=== PATIENT | male | born 1980 | race African-American/Black ===

== ENCOUNTER 2018-06-07 03:03 | Inpatient (IN) | payer MEDICAID ==
[~2018-06-07] VITALS: Ht 160 cm; Wt 139.7 kg
[~2018-06-07 03:03] MED LIST: ASPI-1079 PO; ATOR20TA65 MT; ISOS10TA53 MT; LOSA50TA20 MT; POTA-79 MT; POTA10TA15 MT
[2018-06-07] MEDS ORDERED: ALBUTEROL (0.083%) 2.5MG/3ML NEB HHN STA (03:44)
[2018-06-07] MEDS ORDERED: IPRATROPIUM BROMIDE (0.02%) 0.5MG/2.5ML NEB HHN STA (03:44)
[2018-06-07] MEDS ORDERED: METHYLPREDNISOLONE SOD SUCC 125 MG/2 ML VIAL IV STA (03:44)
[2018-06-07] MEDS ORDERED: ENALAPRIL 2.5MG/2ML VIAL 2ML IV ONE (04:00)
[2018-06-07 04:11] LABS: BASOPHILS % 1.5 % (0.0-2.0); EOSINOPHILS % 2.1 % (0.0-5.0); HEMATOCRIT. 42.9 % (42.0-52.0); HEMOGLOBIN. 14.1 g/dL (14.0-18.0); LYMPHOCYTES % 24.7 % (20.0-50.0); MEAN CORPUSCULAR HEMOGLOBIN 30.6 pg (28.0-32.0); MEAN CORPUSCULAR VOLUME 92.8 fL (80.0-94.0); MEAN PLATELET VOLUME 9.6 fl (7.4-10.4); MONOCYTES % 11.4 % (2.0-8.0); NEUTROPHILS % 60.3 % (40.0-76.0); PLATELET 263 x1000/uL (130-400); RED BLOOD CELL COUNT 4.62 mill/uL (4.7-6.1); RED CELL DISTRIBUTION WIDTH 15.3 % (11.6-14.6)
[2018-06-07 04:48] LABS: CHLORIDE 113 mEq/L (98-107)
[2018-06-07] MEDS ORDERED: FUROSEMIDE 40MG/4ML VIAL IVP ONE (05:00)
[2018-06-07 08:45] VITALS: BP 157/92
[2018-06-07 08:57] VITALS: BP 157/92
[2018-06-07] MEDS ORDERED: LISI40TA4 MT (09:25)
[2018-06-07] MEDS ORDERED: CARV6.2548 MT (09:25)
[2018-06-07] MEDS ORDERED: FURO40TA5 MT (09:25)
[2018-06-07] MEDS ORDERED: ONDANSETRON HCL 4MG/2ML INJ IV PRN (10:30)
[2018-06-07] MEDS ORDERED: CLONIDINE 0.1MG TABLET PO PRN (10:30)
[2018-06-07] MEDS ORDERED: ACETAMINOPHEN 325MG TABLET PO PRN (10:30)
[2018-06-07] MEDS: CARVEDILOL 12.5MG TABLET PO SCH ×2 (10:43→21:33)
[2018-06-07] MEDS: AMLODIPINE 5MG TABLET PO SCH ×2 (10:44→21:33)
[2018-06-07] MEDS: ENOXAPARIN 40MG/0.4ML SYR SUBCUT SCH ×2 (10:45→21:41)
[2018-06-07] MEDS: FUROSEMIDE 100MG/10ML VIAL IVP SCH ×2 (11:04→17:49)
[2018-06-07 12:00] VITALS: BP 155/96
[2018-06-07] MEDS: BUDESONIDE 0.5MG/2ML NEB HHN SCH ×2 (12:01→21:38)
[2018-06-07] MEDS: IPRATROPIUM/ALBUTEROL 0.5-3(2.5)MG/3ML NEB HHN PRN ×3 (12:02→21:17)
[2018-06-07] MEDS: LISINOPRIL 40MG TABLET PO SCH (13:16)
[2018-06-07] MEDS: POTASSIUM CHLORIDE 20MEQ TABLET SR PO SCH (13:17)
[2018-06-07] MEDS: ASPIRIN 81MG TABLET PO SCH (13:17)
[2018-06-07 16:00] VITALS: BP 138/89
[2018-06-07 18:48] VITALS: BP 138/69
[2018-06-07] MEDS ORDERED: PNEUMOCOCCAL 23-VAL P-SAC VAC 0.5 ML IM ONE (20:45)
[2018-06-07] MEDS ORDERED: INFLUENZA VIRUS VACCINE(AFLURIA) 0.5ML SYR IM ONE (20:45)
[2018-06-07 20:53] VITALS: BP 121/79
[2018-06-07] MEDS: ATORVASTATIN CALCIUM 20MG TABLET PO SCH (21:33)
[2018-06-08] VITALS: BP 132/67
[2018-06-08 00:59] LABS: CLARITY URINE CLEAR (CLEAR); COLOR URINE YELLOW (YELLOW); KETONES URINE NEGATIVE (NEGATIVE); LEUKOCYTE ESTERASE URINE NEGATIVE (NEGATIVE); NITRITE URINE NEGATIVE (NEGATIVE); OCCULT BLOOD URINE NEGATIVE (NEGATIVE); PROTEIN URINE 1+ (NEGATIVE); SPECIFIC GRAVITY URINE 1.009 (1.005-1.030); UROBILINOGEN URINE 0.2 E.U./dL (0.2-1.0)
[2018-06-08 01:15] LABS: *AMPHETAMINES SCREEN URINE NEGATIVE (NEGATIVE); *BARBITURATES SCREEN URINE NEGATIVE (NEGATIVE)
[2018-06-08 01:16] LABS: *BENZODIAZEPINES SCREEN URINE NEGATIVE (NEGATIVE); *COCAINE SCREEN URINE NEGATIVE (NEGATIVE); CANNABINOID URINE SCREEN NEGATIVE (NEGATIVE); METHADONE URINE SCREEN NEGATIVE (NEGATIVE); OPIATES URINE SCREEN NEGATIVE (NEGATIVE); PHENCYCLIDINE URINE SCREEN NEGATIVE (NEGATIVE)
[2018-06-08 04:48] VITALS: BP 119/67
[2018-06-08 08:00] VITALS: BP 120/84
[2018-06-08] MEDS: IPRATROPIUM/ALBUTEROL 0.5-3(2.5)MG/3ML NEB HHN PRN ×2 (08:48→20:37)
[2018-06-08] MEDS: BUDESONIDE 0.5MG/2ML NEB HHN SCH ×2 (08:49→20:37)
[2018-06-08 10:01] LABS: HEMATOCRIT. 43.6 % (42.0-52.0); HEMOGLOBIN. 14.2 g/dL (14.0-18.0); MEAN CORPUSCULAR HEMOGLOBIN 30.5 pg (28.0-32.0); MEAN CORPUSCULAR VOLUME 93.9 fL (80.0-94.0); MEAN PLATELET VOLUME 9.4 fl (7.4-10.4); PLATELET 229 x1000/uL (130-400); RED BLOOD CELL COUNT 4.64 mill/uL (4.7-6.1)
[2018-06-08] MEDS: AMLODIPINE 5MG TABLET PO SCH ×2 (10:47→21:00)
[2018-06-08] MEDS: LISINOPRIL 40MG TABLET PO SCH (10:47)
[2018-06-08] MEDS: POTASSIUM CHLORIDE 20MEQ TABLET SR PO SCH (10:47)
[2018-06-08] MEDS: ENOXAPARIN 40MG/0.4ML SYR SUBCUT SCH ×2 (10:48→21:00)
[2018-06-08] MEDS: CARVEDILOL 12.5MG TABLET PO SCH ×2 (10:48→21:00)
[2018-06-08] MEDS: FUROSEMIDE 100MG/10ML VIAL IVP SCH ×2 (10:48→18:12)
[2018-06-08] MEDS: ASPIRIN 81MG TABLET PO SCH (10:48)
[2018-06-08 12:00] VITALS: BP 132/83
[2018-06-08 15:20] LABS: PLATELET ESTIMATE NORMAL
[2018-06-08 16:00] VITALS: BP 112/64
[2018-06-08 20:00] VITALS: BP 109/55
[2018-06-08] MEDS: NEOMY SULF/BACITRAC ZN/POLY OINT 28GM TOP SCH (21:00)
[2018-06-08] MEDS: ATORVASTATIN CALCIUM 20MG TABLET PO SCH (22:05)
[2018-06-09 02:01] VITALS: BP 98/52
[2018-06-09 06:00] VITALS: BP 104/59
[2018-06-09] MEDS: BUDESONIDE 0.5MG/2ML NEB HHN SCH ×2 (07:42→19:43)
[2018-06-09] MEDS: IPRATROPIUM/ALBUTEROL 0.5-3(2.5)MG/3ML NEB HHN PRN (07:42)
[2018-06-09 08:00] VITALS: BP 117/78
[2018-06-09 08:02] LABS: HEMATOCRIT. 46.5 % (42.0-52.0); HEMOGLOBIN. 15.3 g/dL (14.0-18.0); MEAN CORPUSCULAR HEMOGLOBIN 30.7 pg (28.0-32.0); MEAN CORPUSCULAR VOLUME 93.5 fL (80.0-94.0); MEAN PLATELET VOLUME 9.2 fl (7.4-10.4); PLATELET 234 x1000/uL (130-400); RED BLOOD CELL COUNT 4.98 mill/uL (4.7-6.1); RED CELL DISTRIBUTION WIDTH 14.9 % (11.6-14.6)
[2018-06-09 08:10] LABS: CHLORIDE 102 mEq/L (98-107)
[2018-06-09] MEDS: ASPIRIN 81MG TABLET PO SCH (10:07)
[2018-06-09] MEDS: POTASSIUM CHLORIDE 20MEQ TABLET SR PO SCH (10:07)
[2018-06-09] MEDS: CARVEDILOL 12.5MG TABLET PO SCH ×2 (10:08→21:00)
[2018-06-09] MEDS: LISINOPRIL 40MG TABLET PO SCH (10:08)
[2018-06-09] MEDS: AMLODIPINE 5MG TABLET PO SCH ×2 (10:08→21:00)
[2018-06-09] MEDS: ENOXAPARIN 40MG/0.4ML SYR SUBCUT SCH ×2 (10:09→21:04)
[2018-06-09] MEDS: NEOMY SULF/BACITRAC ZN/POLY OINT 28GM TOP SCH ×2 (10:09→21:04)
[2018-06-09] MEDS: FUROSEMIDE 100MG/10ML VIAL IVP SCH ×2 (10:09→18:00)
[2018-06-09 11:02] LABS: PLATELET ESTIMATE NORMAL
[2018-06-09 12:00] VITALS: BP 108/66
[2018-06-09 16:00] VITALS: BP 100/68
[2018-06-09 20:30] VITALS: BP 103/50
[2018-06-09] MEDS: ATORVASTATIN CALCIUM 20MG TABLET PO SCH (21:03)
[2018-06-10] VITALS: BP 97/49
[2018-06-10 04:00] VITALS: BP 107/57
[2018-06-10 07:00] LABS: HEMATOCRIT. 45.9 % (42.0-52.0); MEAN CORPUSCULAR HEMOGLOBIN 30.6 pg (28.0-32.0); MEAN CORPUSCULAR VOLUME 93.2 fL (80.0-94.0); MEAN PLATELET VOLUME 8.7 fl (7.4-10.4); PLATELET 229 x1000/uL (130-400); RED BLOOD CELL COUNT 4.92 mill/uL (4.7-6.1); RED CELL DISTRIBUTION WIDTH 15.3 % (11.6-14.6)
[2018-06-10 07:45] LABS: CHLORIDE 103 mEq/L (98-107)
[2018-06-10 08:00] VITALS: BP 96/52
[2018-06-10] MEDS: IPRATROPIUM/ALBUTEROL 0.5-3(2.5)MG/3ML NEB HHN PRN ×2 (08:22→21:12)
[2018-06-10] MEDS: BUDESONIDE 0.5MG/2ML NEB HHN SCH (08:23)
[2018-06-10] MEDS: CARVEDILOL 12.5MG TABLET PO SCH (09:00)
[2018-06-10] MEDS: NEOMY SULF/BACITRAC ZN/POLY OINT 28GM TOP SCH ×2 (09:00→21:03)
[2018-06-10] MEDS: AMLODIPINE 5MG TABLET PO SCH (09:00)
[2018-06-10] MEDS: LISINOPRIL 40MG TABLET PO SCH (09:00)
[2018-06-10 10:07] LABS: ATYPICAL LYMPHOCYTES 1
[2018-06-10 10:08] LABS: PLATELET ESTIMATE NORMAL
[2018-06-10] MEDS ORDERED: SODIUM CHLORIDE 0.45% 250 ML IV ONE (10:45)
[2018-06-10] MEDS: ASPIRIN 81MG TABLET PO SCH (11:10)
[2018-06-10] MEDS: POTASSIUM CHLORIDE 20MEQ TABLET SR PO SCH (11:10)
[2018-06-10] MEDS: FUROSEMIDE 40MG TABLET PO SCH ×2 (11:10→17:26)
[2018-06-10] MEDS: ENOXAPARIN 40MG/0.4ML SYR SUBCUT SCH ×2 (11:21→21:02)
[2018-06-10 16:00] VITALS: BP 136/67
[2018-06-10 20:00] VITALS: BP 111/56
[2018-06-10] MEDS: CARVEDILOL 6.25 MG TABLET PO SCH (21:01)
[2018-06-10] MEDS: ATORVASTATIN CALCIUM 20MG TABLET PO SCH (21:01)
[2018-06-11] VITALS: BP 98/43
[2018-06-11 04:00] VITALS: BP 114/66
[2018-06-11] MEDS: FUROSEMIDE 40MG TABLET PO SCH (05:54)
[2018-06-11 07:07] LABS: HEMATOCRIT. 45.6 % (42.0-52.0); HEMOGLOBIN. 14.9 g/dL (14.0-18.0); MEAN CORPUSCULAR HEMOGLOBIN 30.7 pg (28.0-32.0); MEAN CORPUSCULAR VOLUME 93.8 fL (80.0-94.0); PLATELET 228 x1000/uL (130-400); RED BLOOD CELL COUNT 4.86 mill/uL (4.7-6.1); RED CELL DISTRIBUTION WIDTH 14.7 % (11.6-14.6)
[2018-06-11 08:04] VITALS: BP 101/50
[2018-06-11] MEDS: AMLODIPINE 2.5MG TABLET PO SCH ×2 (09:00→15:25)
[2018-06-11] MEDS ORDERED: LISINOPRIL 10MG TABLET PO SCH (09:00)
[2018-06-11] MEDS: CARVEDILOL 6.25 MG TABLET PO SCH (09:00)
[2018-06-11] MEDS: POTASSIUM CHLORIDE 20MEQ TABLET SR PO SCH (09:13)
[2018-06-11] MEDS: ASPIRIN 81MG TABLET PO SCH (09:13)
[2018-06-11] MEDS: ENOXAPARIN 40MG/0.4ML SYR SUBCUT SCH (09:16)
[2018-06-11] MEDS: NEOMY SULF/BACITRAC ZN/POLY OINT 28GM TOP SCH (09:17)
[2018-06-11 11:43] VITALS: BP 158/91
[2018-06-11] MEDS ORDERED: ASPI-1160 PO (12:07)
[2018-06-11] MEDS ORDERED: LISI10TA5 PO (12:07)
[2018-06-11] MEDS ORDERED: AMLO2.5T45 PO (12:07)
[2018-06-11 15:18] VITALS: BP 158/91
[2018-06-11 17:09] LABS: PLATELET ESTIMATE NORMAL
== END 2018-06-11 17:19 | disposition home or self-care (01) | DRG 194 ==
LOC: ER 03:35 → 6WST 05:59 → EDBEDREQ 06:00 → EDBEDREQTM 06:00 → ENRESERV 08:01
PROVIDERS: ADMIT Internal Medicine; ATTEND Internal Medicine
DX: I13.0 Hypertensive heart and chronic kidney disease with heart failure and stage 1 through stage 4 chronic kidney disease, or unspecified chronic kidney disease (principal); N17.0 Acute kidney failure with tubular necrosis; E87.0 Hyperosmolality and hypernatremia; E66.01 Morbid (severe) obesity due to excess calories; E87.8 Other disorders of electrolyte and fluid balance, not elsewhere classified; R65.10 Systemic inflammatory response syndrome (SIRS) of non-infectious origin without acute organ dysfunction; I42.9 Cardiomyopathy, unspecified; I50.23 Acute on chronic systolic (congestive) heart failure; Z68.43 Body mass index [BMI] 50.0-59.9, adult; J44.9 Chronic obstructive pulmonary disease, unspecified; E78.5 Hyperlipidemia, unspecified; S31.31XA Laceration without foreign body of scrotum and testes, initial encounter; N18.9 Chronic kidney disease, unspecified; M25.569 Pain in unspecified knee; R74.8 Abnormal levels of other serum enzymes; Z79.82 Long term (current) use of aspirin; Z79.899 Other long term (current) drug therapy; X58.XXXA Exposure to other specified factors, initial encounter; Y93.89 Activity, other specified; Y92.89 Other specified places as the place of occurrence of the external cause; Y99.8 Other external cause status
CPT/HCPCS: 36415; 71045; 76870; 80048; 80305; 82962; 83880; 84134; 84484; 90686; 90732; 93005; 93970; 93976; 94640; 96374; 96375; 97162; 99285; C1893; J1650; J1940; J2930; J3490; J7050; J7611; J7620; J7626

== ENCOUNTER 2018-08-22 09:58 | Inpatient (IN) | payer MEDICAID ==
[~2018-08-22] VITALS: Ht 160 cm; Wt 145.1 kg
[~2018-08-22 09:58] MED LIST changes: +AMLO2.5T45 PO; -ASPI-1079 PO; +ASPI-1160 PO; +CARV6.2548 MT; +FURO40TA5 MT; -ISOS10TA53 MT; +LISI10TA5 PO; -LOSA50TA20 MT; -POTA-79 MT; -POTA10TA15 MT
[2018-08-22 11:00] LABS: HEMATOCRIT. 46.7 % (42.0-52.0); HEMOGLOBIN. 15.4 g/dL (14.0-18.0); MEAN CORPUSCULAR HEMOGLOBIN 31.1 pg (28.0-32.0); MEAN CORPUSCULAR VOLUME 94.3 fL (80.0-94.0); MEAN PLATELET VOLUME 8.6 fl (7.4-10.4); PLATELET 240 x1000/uL (130-400); RED BLOOD CELL COUNT 4.95 mill/uL (4.7-6.1)
[2018-08-22 11:03] LABS: CHLORIDE 106 mEq/L (98-107); INR 1.1; PROTHROMBIN TIME 10.7 sec (9.1-11.1)
[2018-08-22] MEDS ORDERED: FUROSEMIDE 40MG/4ML VIAL IVP ONE (11:30)
[2018-08-22] MEDS ORDERED: NITROGLYCERIN OINT 1GM/INCH UDPKT TD ONE (11:30)
[2018-08-22 11:49] LABS: PLATELET ESTIMATE NORMAL
[2018-08-22] MEDS ORDERED: IBUPROFEN 600MG TABLET PO ONE (13:45)
[2018-08-22] MEDS: IPRATROPIUM/ALBUTEROL 0.5-3(2.5)MG/3ML NEB HHN SCH ×2 (15:51→20:51)
[2018-08-22] MEDS ORDERED: CLONIDINE 0.1MG TABLET PO PRN ×2 (16:00→18:45)
[2018-08-22] MEDS ORDERED: IPRATROPIUM/ALBUTEROL 0.5-3(2.5)MG/3ML NEB HHN PRN (16:37)
[2018-08-22] MEDS ORDERED: CLONIDINE 0.2MG TABLET PO PRN (16:39)
[2018-08-22 18:20] VITALS: BP 169/112
[2018-08-22] MEDS ORDERED: MAGNESIUM/ALUMINUM HYDROXIDE/SIMETHICONE 30ML UDC PO PRN (18:45)
[2018-08-22] MEDS ORDERED: ACETAMINOPHEN 650MG/20.3ML UDC GT PRN (18:45)
[2018-08-22] MEDS ORDERED: ACETAMINOPHEN 650MG SUPP PR PRN (18:45)
[2018-08-22] MEDS ORDERED: IPRATROPIUM/ALBUTEROL 0.5-3(2.5)MG/3ML NEB INH PRN (18:45)
[2018-08-22] MEDS ORDERED: ONDANSETRON HCL 4MG/2ML INJ IV PRN (18:45)
[2018-08-22] MEDS ORDERED: ACETAMINOPHEN 325MG TABLET PO PRN (18:45)
[2018-08-22 19:04] LABS: BG BASE EXCESS 1.3 mmol/L (-2.0-2.0); BG BILEVEL POS AIRWAY PRESSURE 15/5; BG FRACTION INSPIRED OXYGEN 40; BG HCO3 ACT 26.3 mmol/L (22.0-26.0); BG OXYGEN SATURATION 98.7 % (92.0-98.5); BG PH 7.404 (7.350-7.450); BG SAMPLE SITE RIGHT RADIAL; BG TOTAL HEMOGLOBIN 13.5 g/dL (12.0-18.0); BG VENT MODE MASK - BIPAP; BG VENT RATE 14 set
[2018-08-22 19:05] LABS: BG CARBOXYHEMOGLOBIN 0.9 % (0.5-1.5); BG DEOXYHEMOGLOBIN 1.3 % (0.0-5.0); BG METHEMOGLOBIN 0.3 % (0.0-1.5); BG OXYHEMOGLOBIN 97.5 % (94.0-97.0)
[2018-08-22 20:00] VITALS: BP 159/86
[2018-08-22 20:08] VITALS: BP 159/86
[2018-08-22] MEDS: METHYLPREDNISOLONE SOD SUCC 125 MG/2 ML VIAL IV SCH (20:28)
[2018-08-22] MEDS: FUROSEMIDE 40MG/4ML VIAL IVP SCH (20:28)
[2018-08-22] MEDS: LOSARTAN POTASSIUM 25 MG TABLET PO SCH (20:31)
[2018-08-22] MEDS: AMLODIPINE 5MG TABLET PO SCH (20:31)
[2018-08-22] MEDS: BUDESONIDE 0.5MG/2ML NEB HHN SCH (20:51)
[2018-08-22 22:31] VITALS: BP 147/100
[2018-08-23] VITALS (11 sets, daily range): BP systolic 118–157; BP diastolic 51–97
[2018-08-23 00:28] LABS: CREATINE KINASE MB FRACTION 1.9 ng/mL (0.5-3.6)
[2018-08-23] MEDS: SODIUM CHLORIDE 0.9% INJ 3ML FLUSH IVF SCH ×4 (01:36→21:44)
[2018-08-23] MEDS: METHYLPREDNISOLONE SOD SUCC 125 MG/2 ML VIAL IV SCH ×4 (01:36→21:44)
[2018-08-23] MEDS: IPRATROPIUM/ALBUTEROL 0.5-3(2.5)MG/3ML NEB HHN SCH ×4 (02:06→20:37)
[2018-08-23 03:01] LABS: CLARITY URINE CLEAR (CLEAR); COLOR URINE YELLOW (YELLOW); KETONES URINE NEGATIVE (NEGATIVE); LEUKOCYTE ESTERASE URINE NEGATIVE (NEGATIVE); NITRITE URINE NEGATIVE (NEGATIVE); OCCULT BLOOD URINE NEGATIVE (NEGATIVE); PROTEIN URINE NEGATIVE (NEGATIVE); SPECIFIC GRAVITY URINE 1.008 (1.005-1.030); UROBILINOGEN URINE 0.2 E.U./dL (0.2-1.0)
[2018-08-23 03:40] LABS: *AMPHETAMINES SCREEN URINE NEGATIVE (NEGATIVE); *BARBITURATES SCREEN URINE NEGATIVE (NEGATIVE); *BENZODIAZEPINES SCREEN URINE NEGATIVE (NEGATIVE); *COCAINE SCREEN URINE NEGATIVE (NEGATIVE); METHADONE URINE SCREEN NEGATIVE (NEGATIVE); OPIATES URINE SCREEN NEGATIVE (NEGATIVE)
[2018-08-23 03:41] LABS: CANNABINOID URINE SCREEN NEGATIVE (NEGATIVE); PHENCYCLIDINE URINE SCREEN NEGATIVE (NEGATIVE)
[2018-08-23 06:32] LABS: HEMATOCRIT. 41.7 % (42.0-52.0); HEMOGLOBIN. 13.8 g/dL (14.0-18.0); MEAN CORPUSCULAR VOLUME 93.8 fL (80.0-94.0); MEAN PLATELET VOLUME 8.9 fl (7.4-10.4); PLATELET 228 x1000/uL (130-400); RED BLOOD CELL COUNT 4.44 mill/uL (4.7-6.1); RED CELL DISTRIBUTION WIDTH 15.3 % (11.6-14.6)
[2018-08-23 06:38] LABS: CHLORIDE 101 mEq/L (98-107)
[2018-08-23 06:50] LABS: LDL CHOLESTEROL 85 mg/dL (5-100)
[2018-08-23 06:52] LABS: HDL CHOLESTEROL 42 mg/dL (40-59)
[2018-08-23 06:59] LABS: CREATINE KINASE MB FRACTION 1.7 ng/mL (0.5-3.6)
[2018-08-23] MEDS ORDERED: FUROSEMIDE 40MG/4ML VIAL IVP SCH (09:00)
[2018-08-23] MEDS: LOSARTAN POTASSIUM 25 MG TABLET PO SCH ×2 (09:52→21:44)
[2018-08-23] MEDS: FUROSEMIDE 40MG/4ML VIAL IVP SCH ×2 (09:52→16:58)
[2018-08-23] MEDS: AMLODIPINE 5MG TABLET PO SCH ×2 (09:53→21:44)
[2018-08-23] MEDS: BUDESONIDE 0.5MG/2ML NEB HHN SCH ×2 (15:24→20:37)
[2018-08-24] MEDS: METHYLPREDNISOLONE SOD SUCC 125 MG/2 ML VIAL IV SCH ×2 (01:10→08:51)
[2018-08-24] MEDS: IPRATROPIUM/ALBUTEROL 0.5-3(2.5)MG/3ML NEB HHN SCH ×3 (01:15→13:26)
[2018-08-24] MEDS: SODIUM CHLORIDE 0.9% INJ 3ML FLUSH IVF SCH (05:51)
[2018-08-24 07:37] LABS: PLATELET ESTIMATE NORMAL
[2018-08-24] MEDS: LOSARTAN POTASSIUM 25 MG TABLET PO SCH (08:45)
[2018-08-24] MEDS: AMLODIPINE 5MG TABLET PO SCH (08:46)
[2018-08-24] MEDS: FUROSEMIDE 40MG/4ML VIAL IVP SCH (08:51)
[2018-08-24 09:42] LABS: HEMATOCRIT. 44.7 % (42.0-52.0); HEMOGLOBIN. 14.6 g/dL (14.0-18.0); MEAN CORPUSCULAR HEMOGLOBIN 30.8 pg (28.0-32.0); MEAN CORPUSCULAR VOLUME 94.2 fL (80.0-94.0); MEAN PLATELET VOLUME 8.8 fl (7.4-10.4); PLATELET 245 x1000/uL (130-400); RED BLOOD CELL COUNT 4.74 mill/uL (4.7-6.1)
[2018-08-24 10:21] LABS: CHLORIDE 104 mEq/L (98-107)
[2018-08-24 12:00] VITALS: BP 122/75
[2018-08-24 13:11] LABS: PLATELET ESTIMATE NORMAL
[2018-08-24] MEDS: BUDESONIDE 0.5MG/2ML NEB HHN SCH (13:26)
[2018-08-24 14:00] VITALS: BP 134/56
[2018-08-24] MEDS ORDERED: METHYLPREDNISOLONE SOD SUCC 40 MG/ML VIAL IV SCH (17:00)
== END 2018-08-24 14:30 | disposition left against medical advice (07) | DRG 133 ==
LOC: ER 09:58 → 6WST 11:37 → EDBEDREQ 11:46 → ENRESERV 16:41 → 5EST 22:26
PROVIDERS: ADMIT Family Medicine; ATTEND Family Medicine
PROC: 5A09357 Assistance with Respiratory Ventilation, Less than 24 Consecutive Hours, Continuous Positive Airway Pressure (ICD-10-PCS; principal; 2018-08-22)
PROC: 5A09357 Assistance with Respiratory Ventilation, Less than 24 Consecutive Hours, Continuous Positive Airway Pressure (ICD-10-PCS; 2018-08-23)
PROC: 5A09357 Assistance with Respiratory Ventilation, Less than 24 Consecutive Hours, Continuous Positive Airway Pressure (ICD-10-PCS; 2018-08-24)
DX: J96.00 Acute respiratory failure, unspecified whether with hypoxia or hypercapnia (principal); I50.23 Acute on chronic systolic (congestive) heart failure; I42.9 Cardiomyopathy, unspecified; Z99.81 Dependence on supplemental oxygen; Z68.43 Body mass index [BMI] 50.0-59.9, adult; J44.9 Chronic obstructive pulmonary disease, unspecified; I11.0 Hypertensive heart disease with heart failure; G47.33 Obstructive sleep apnea (adult) (pediatric); F12.90 Cannabis use, unspecified, uncomplicated; E66.9 Obesity, unspecified; R73.9 Hyperglycemia, unspecified; F17.200 Nicotine dependence, unspecified, uncomplicated; Z79.899 Other long term (current) drug therapy; Z79.82 Long term (current) use of aspirin; Z53.21 Procedure and treatment not carried out due to patient leaving prior to being seen by health care provider
CPT/HCPCS: 36415; 36600; 71045; 80061; 80305; 82375; 82550; 82553; 82805; 83735; 83880; 84484; 87070; 93005; 94640; 96374; 96375; 99285; J1940; J2930; J7620; J7626

== ENCOUNTER 2019-02-06 13:01 | Inpatient (IN) | payer MEDICAID ==
[~2019-02-06] VITALS: Ht 160 cm; Wt 120.2 kg
[2019-02-06] MEDS ORDERED: ASPIRIN 81MG TABLET PO ONE (13:30)
[2019-02-06] MEDS ORDERED: FUROSEMIDE 40MG/4ML VIAL IV ONE (13:30)
[2019-02-06] MEDS ORDERED: NITROGLYCERIN 0.4MG TABLET SL SL PRN (13:30)
[2019-02-06 14:44] LABS: HEMATOCRIT. 35.8 % (42.0-52.0); HEMOGLOBIN. 11.7 g/dL (14.0-18.0); MEAN CORPUSCULAR HEMOGLOBIN 31.2 pg (28.0-32.0); MEAN CORPUSCULAR VOLUME 95.1 fL (80.0-94.0); PLATELET 209 x1000/uL (130-400); RED BLOOD CELL COUNT 3.76 mill/uL (4.7-6.1); RED CELL DISTRIBUTION WIDTH 17.5 % (11.6-14.6)
[2019-02-06 14:46] LABS: CHLORIDE 110 mEq/L (98-107)
[2019-02-06] MEDS ORDERED: AMLODIPINE 5MG TABLET PO ONE (15:45)
[2019-02-06] MEDS ORDERED: ENOXAPARIN 120MG/0.8ML SYR SUBCUT ONE (15:45)
[2019-02-06 15:49] LABS: PLATELET ESTIMATE NORMAL
[2019-02-06] MEDS ORDERED: ONDANSETRON HCL 4MG/2ML INJ IV PRN (17:30)
[2019-02-06] MEDS ORDERED: DIPHENHYDRAMINE 50MG/ML VIAL IV PRN (17:30)
[2019-02-06] MEDS ORDERED: MAGNESIUM/ALUMINUM HYDROXIDE/SIMETHICONE 30ML UDC PO PRN (17:30)
[2019-02-06] MEDS ORDERED: IPRATROPIUM/ALBUTEROL 0.5-3(2.5)MG/3ML NEB HHN PRN (17:30)
[2019-02-06] MEDS ORDERED: ACETAMINOPHEN 325MG TABLET PO PRN (17:30)
[2019-02-06] MEDS ORDERED: ENOXAPARIN 40MG/0.4ML SYR SUBCUT NR (17:49)
[2019-02-06] MEDS: CLONIDINE 0.1MG TABLET PO PRN (18:59)
[2019-02-06 22:27] VITALS: BP 136/90
[2019-02-06] MEDS: ENOXAPARIN 30MG/0.3ML SYR SUBCUT SCH (23:44)
[2019-02-07 00:26] VITALS: BP 159/101
[2019-02-07] MEDS: CLONIDINE 0.1MG TABLET PO PRN (03:51)
[2019-02-07 04:00] VITALS: BP 149/98
[2019-02-07 05:57] LABS: BASOPHILS % 0.8 % (0.0-2.0); EOSINOPHILS % 3.2 % (0.0-5.0); HEMATOCRIT. 35.9 % (42.0-52.0); HEMOGLOBIN. 11.9 g/dL (14.0-18.0); LYMPHOCYTES % 27.3 % (20.0-50.0); MEAN CORPUSCULAR HEMOGLOBIN 31.3 pg (28.0-32.0); MEAN CORPUSCULAR VOLUME 94.5 fL (80.0-94.0); MEAN PLATELET VOLUME 7.8 fl (7.4-10.4); MONOCYTES % 14.8 % (2.0-8.0); NEUTROPHILS % 53.9 % (40.0-76.0); PLATELET 209 x1000/uL (130-400); RED CELL DISTRIBUTION WIDTH 17.4 % (11.6-14.6)
[2019-02-07 06:19] LABS: CHLORIDE 107 mEq/L (98-107)
[2019-02-07 06:31] LABS: HDL CHOLESTEROL 30 mg/dL (40-59); LDL CHOLESTEROL 80 mg/dL (5-100)
[2019-02-07 08:00] VITALS: BP 149/88
[2019-02-07] MEDS: ENOXAPARIN 30MG/0.3ML SYR SUBCUT SCH ×2 (09:18→21:14)
[2019-02-07] MEDS: FUROSEMIDE 40MG/4ML VIAL IV SCH ×2 (10:11→17:50)
[2019-02-07 12:00] VITALS: BP 151/60
[2019-02-07] MEDS: LISINOPRIL 10MG TABLET PO SCH ×2 (14:59→21:15)
[2019-02-07] MEDS: CARVEDILOL 6.25 MG TABLET PO SCH ×2 (14:59→21:23)
[2019-02-07 16:00] VITALS: BP 128/80
[2019-02-07 20:18] LABS: *AMPHETAMINES SCREEN URINE NEGATIVE (NEGATIVE); *BARBITURATES SCREEN URINE NEGATIVE (NEGATIVE); *BENZODIAZEPINES SCREEN URINE NEGATIVE (NEGATIVE); *COCAINE SCREEN URINE NEGATIVE (NEGATIVE); METHADONE URINE SCREEN NEGATIVE (NEGATIVE); OPIATES URINE SCREEN NEGATIVE (NEGATIVE)
[2019-02-07 20:19] LABS: CANNABINOID URINE SCREEN NEGATIVE (NEGATIVE); PHENCYCLIDINE URINE SCREEN NEGATIVE (NEGATIVE)
[2019-02-07] MEDS: IPRATROPIUM/ALBUTEROL 0.5-3(2.5)MG/3ML NEB HHN SCH ×2 (20:47→21:07)
[2019-02-07] MEDS: BUDESONIDE 0.5MG/2ML NEB HHN SCH ×2 (20:48→21:08)
[2019-02-07] MEDS: AMLODIPINE 5MG TABLET PO SCH (21:15)
[2019-02-08] VITALS: BP 152/86
[2019-02-08] MEDS: IPRATROPIUM/ALBUTEROL 0.5-3(2.5)MG/3ML NEB HHN SCH ×4 (03:36→20:03)
[2019-02-08 04:00] VITALS: BP 109/74
[2019-02-08 07:33] LABS: BASOPHILS % 0.9 % (0.0-2.0); EOSINOPHILS % 2.8 % (0.0-5.0); HEMATOCRIT. 38.9 % (42.0-52.0); HEMOGLOBIN. 12.7 g/dL (14.0-18.0); LYMPHOCYTES % 19.9 % (20.0-50.0); MEAN CORPUSCULAR HEMOGLOBIN 30.9 pg (28.0-32.0); MEAN CORPUSCULAR VOLUME 94.6 fL (80.0-94.0); MEAN PLATELET VOLUME 7.6 fl (7.4-10.4); MONOCYTES % 13.8 % (2.0-8.0); NEUTROPHILS % 62.6 % (40.0-76.0); PLATELET 231 x1000/uL (130-400); RED CELL DISTRIBUTION WIDTH 17.2 % (11.6-14.6)
[2019-02-08 07:35] LABS: CHLORIDE 103 mEq/L (98-107)
[2019-02-08 08:37] VITALS: BP 134/89
[2019-02-08] MEDS: BUDESONIDE 0.5MG/2ML NEB HHN SCH ×2 (08:53→20:03)
[2019-02-08] MEDS: CARVEDILOL 6.25 MG TABLET PO SCH ×2 (09:45→21:03)
[2019-02-08] MEDS: LISINOPRIL 10MG TABLET PO SCH ×2 (09:45→21:03)
[2019-02-08] MEDS: AMLODIPINE 5MG TABLET PO SCH ×2 (09:46→21:03)
[2019-02-08] MEDS: FUROSEMIDE 40MG/4ML VIAL IV SCH ×2 (09:46→17:48)
[2019-02-08 12:00] VITALS: BP 142/89
[2019-02-08 17:23] VITALS: BP 123/83
[2019-02-08 20:00] VITALS: BP 149/93
[2019-02-08] MEDS: PANTOPRAZOLE 40MG DR TABLET PO SCH (21:10)
[2019-02-09] VITALS: BP 143/89
[2019-02-09] MEDS: IPRATROPIUM/ALBUTEROL 0.5-3(2.5)MG/3ML NEB HHN SCH ×4 (02:06→21:18)
[2019-02-09 04:00] VITALS: BP 115/68
[2019-02-09 06:40] LABS: INR 1.1; PROTHROMBIN TIME 11.3 sec (9.6-11.0)
[2019-02-09 07:03] LABS: HEMATOCRIT. 41.6 % (42.0-52.0); HEMOGLOBIN. 13.6 g/dL (14.0-18.0); MEAN CORPUSCULAR HEMOGLOBIN 30.9 pg (28.0-32.0); MEAN CORPUSCULAR VOLUME 94.4 fL (80.0-94.0); MEAN PLATELET VOLUME 7.9 fl (7.4-10.4); PLATELET 237 x1000/uL (130-400); RED BLOOD CELL COUNT 4.41 mill/uL (4.7-6.1); RED CELL DISTRIBUTION WIDTH 17.2 % (11.6-14.6)
[2019-02-09 07:29] LABS: CHLORIDE 105 mEq/L (98-107)
[2019-02-09 08:00] VITALS: BP 117/73
[2019-02-09] MEDS: BUDESONIDE 0.5MG/2ML NEB HHN SCH ×2 (08:25→21:18)
[2019-02-09] MEDS: LISINOPRIL 10MG TABLET PO SCH ×2 (09:12→21:00)
[2019-02-09] MEDS: FUROSEMIDE 40MG/4ML VIAL IV SCH ×2 (09:12→11:13)
[2019-02-09] MEDS: PANTOPRAZOLE 40MG DR TABLET PO SCH ×2 (09:12→17:08)
[2019-02-09] MEDS: CARVEDILOL 6.25 MG TABLET PO SCH ×2 (09:12→21:00)
[2019-02-09] MEDS: AMLODIPINE 5MG TABLET PO SCH ×2 (09:12→21:30)
[2019-02-09 13:35] LABS: PLATELET ESTIMATE NORMAL
[2019-02-09 16:00] VITALS: BP 143/79
[2019-02-09] MEDS: SPIRONOLACTONE 25MG TABLET PO SCH (17:09)
[2019-02-09] MEDS: FUROSEMIDE 40MG TABLET PO SCH (17:09)
[2019-02-09] MEDS: METOLAZONE 2.5MG TABLET PO SCH (17:09)
[2019-02-09 20:00] VITALS: BP 108/77
[2019-02-10] VITALS: BP 101/72
[2019-02-10] MEDS: IPRATROPIUM/ALBUTEROL 0.5-3(2.5)MG/3ML NEB HHN SCH ×3 (01:26→12:40)
[2019-02-10 08:00] VITALS: BP 124/82
[2019-02-10] MEDS: BUDESONIDE 0.5MG/2ML NEB HHN SCH (08:22)
[2019-02-10] MEDS: PANTOPRAZOLE 40MG DR TABLET PO SCH (08:52)
[2019-02-10] MEDS: METOLAZONE 2.5MG TABLET PO SCH (08:53)
[2019-02-10] MEDS: AMLODIPINE 5MG TABLET PO SCH (08:53)
[2019-02-10] MEDS: LISINOPRIL 10MG TABLET PO SCH (08:54)
[2019-02-10] MEDS: CARVEDILOL 6.25 MG TABLET PO SCH (08:54)
[2019-02-10] MEDS: FUROSEMIDE 40MG TABLET PO SCH (08:54)
[2019-02-10] MEDS: SPIRONOLACTONE 25MG TABLET PO SCH (08:55)
[2019-02-10 10:37] LABS: BASOPHILS % 1.2 % (0.0-2.0); EOSINOPHILS % 3.3 % (0.0-5.0); HEMATOCRIT. 46.5 % (42.0-52.0); HEMOGLOBIN. 15.1 g/dL (14.0-18.0); LYMPHOCYTES % 23.4 % (20.0-50.0); MEAN CORPUSCULAR HEMOGLOBIN 30.9 pg (28.0-32.0); MEAN CORPUSCULAR VOLUME 95.3 fL (80.0-94.0); MEAN PLATELET VOLUME 8.1 fl (7.4-10.4); NEUTROPHILS % 58.1 % (40.0-76.0); PLATELET 241 x1000/uL (130-400); RED BLOOD CELL COUNT 4.88 mill/uL (4.7-6.1); RED CELL DISTRIBUTION WIDTH 17.5 % (11.6-14.6)
[2019-02-10 10:45] LABS: CHLORIDE 103 mEq/L (98-107)
[2019-02-10 12:00] VITALS: BP 113/80
[2019-02-10 14:33] VITALS: BP 113/80
[2019-02-10] MEDS ORDERED: METO5TAB69 MT (14:45)
[2019-02-10] MEDS ORDERED: PANT40TA4 MT (14:45)
[2019-02-10] MEDS ORDERED: LISI10TA5 MT (14:47)
[2019-02-10] MEDS ORDERED: AMLO2.5T45 MT (14:48)
[2019-02-10] MEDS ORDERED: SPIR25TA6 MT (14:48)
[2019-02-10 16:00] VITALS: BP 135/89
== END 2019-02-10 16:15 | disposition home or self-care (01) | DRG 133 ==
LOC: ER 13:16 → 7WST 17:10 → ENRESERV 19:40
PROVIDERS: ADMIT Internal Medicine; ATTEND Internal Medicine
DX: J96.00 Acute respiratory failure, unspecified whether with hypoxia or hypercapnia (principal); I50.23 Acute on chronic systolic (congestive) heart failure; I42.9 Cardiomyopathy, unspecified; E66.01 Morbid (severe) obesity due to excess calories; J44.1 Chronic obstructive pulmonary disease with (acute) exacerbation; K92.2 Gastrointestinal hemorrhage, unspecified; Z99.81 Dependence on supplemental oxygen; I13.0 Hypertensive heart and chronic kidney disease with heart failure and stage 1 through stage 4 chronic kidney disease, or unspecified chronic kidney disease; Z68.42 Body mass index [BMI] 45.0-49.9, adult; D72.821 Monocytosis (symptomatic); R19.7 Diarrhea, unspecified; D64.9 Anemia, unspecified; N18.9 Chronic kidney disease, unspecified; G47.33 Obstructive sleep apnea (adult) (pediatric); F12.90 Cannabis use, unspecified, uncomplicated; Z82.49 Family history of ischemic heart disease and other diseases of the circulatory system; Z79.82 Long term (current) use of aspirin
CPT/HCPCS: 36415; 71045; 76604; 80048; 80061; 80305; 82270; 83735; 83880; 84484; 89055; 93005; 93306; 93970; 94640; 96374; 99291; C1893; J1650; J1940; J7620; J7626

== ENCOUNTER 2019-08-05 15:12 | Inpatient (IN) | payer MEDICAID ==
[~2019-08-05] VITALS: Ht 162.6 cm; Wt 145.1 kg
[2019-08-05] MEDS: ENOXAPARIN 30MG/0.3ML SYR SUBCUT SCH (06:00)
[~2019-08-05 15:12] MED LIST changes: +AMLO2.5T45 MT; -AMLO2.5T45 PO; +LISI10TA5 MT; -LISI10TA5 PO; +METO5TAB7 MT; +PANT40TA4 MT; +SPIR25TA6 MT
[2019-08-05 16:47] LABS: HEMATOCRIT. 43.8 % (42.0-52.0); HEMOGLOBIN. 14.7 g/dL (14.0-18.0); MEAN CORPUSCULAR HEMOGLOBIN 31.5 pg (28.0-32.0); MEAN PLATELET VOLUME 8.6 fl (7.4-10.4); PLATELET 216 x1000/uL (130-400); RED BLOOD CELL COUNT 4.66 mill/uL (4.7-6.1); RED CELL DISTRIBUTION WIDTH 14.5 % (11.6-14.6)
[2019-08-05 16:49] LABS: CHLORIDE 107 mEq/L (98-107)
[2019-08-05 17:01] LABS: PROTHROMBIN TIME 10.7 sec (9.6-11.0)
[2019-08-05] MEDS ORDERED: FUROSEMIDE 40MG/4ML VIAL IVP SCH (17:30)
[2019-08-05] MEDS ORDERED: ASPIRIN 325MG EC TABLET PO SCH (17:30)
[2019-08-05 18:38] LABS: PLATELET ESTIMATE NORMAL
[2019-08-05] MEDS ORDERED: ALBUTEROL (0.083%) 2.5MG/3ML NEB HHN STA (18:50)
[2019-08-05] MEDS ORDERED: DIPHENHYDRAMINE 50MG/ML VIAL IV PRN (19:00)
[2019-08-05] MEDS ORDERED: ONDANSETRON HCL 4MG/2ML INJ IV PRN (19:00)
[2019-08-05 19:41] LABS: PHOSPHORUS 2.6 mg/dL (2.5-4.9)
[2019-08-06] MEDS: IPRATROPIUM/ALBUTEROL 0.5-3(2.5)MG/3ML NEB HHN PRN (01:54)
[2019-08-06] MEDS: CLONIDINE 0.1MG TABLET PO PRN (02:13)
[2019-08-06 05:30] LABS: HEMOGLOBIN. 13.5 g/dL (14.0-18.0); MEAN CORPUSCULAR HEMOGLOBIN 31.9 pg (28.0-32.0); MEAN CORPUSCULAR VOLUME 94.3 fL (80.0-94.0); MEAN PLATELET VOLUME 8.6 fl (7.4-10.4); PLATELET 193 x1000/uL (130-400); RED BLOOD CELL COUNT 4.24 mill/uL (4.7-6.1); RED CELL DISTRIBUTION WIDTH 14.4 % (11.6-14.6)
[2019-08-06 05:36] LABS: CHLORIDE 107 mEq/L (98-107)
[2019-08-06 05:43] LABS: LDL CHOLESTEROL 99 mg/dL (5-100)
[2019-08-06 05:45] LABS: HDL CHOLESTEROL 36 mg/dL (40-59)
[2019-08-06 06:13] LABS: NUCLEATED RED BLOOD CELLS 1 /100 WBC; PLATELET ESTIMATE NORMAL
[2019-08-06 09:42] VITALS: BP_SYST 134; BP_DIAS 76; BP_DIAS 96
[2019-08-06] MEDS: ENOXAPARIN 30MG/0.3ML SYR SUBCUT SCH ×2 (09:53→21:57)
[2019-08-06] MEDS ORDERED: INFLUENZA VIRUS VACCINE(AFLURIA) 0.5ML SYR IM ONE (11:45)
[2019-08-06] MEDS ORDERED: PNEUMOCOCCAL 23-VAL P-SAC VAC 0.5 ML IM ONE (11:45)
[2019-08-06 12:00] VITALS: BP 131/85
[2019-08-06 16:00] VITALS: BP 131/85
[2019-08-06 17:16] LABS: TOTAL IRON BINDING CAPACITY 338 ug/dL (250-450)
[2019-08-06] MEDS: ASPIRIN 81MG TABLET PO SCH (17:34)
[2019-08-06] MEDS: FUROSEMIDE 40MG/4ML VIAL IV SCH (17:35)
[2019-08-06 19:03] LABS: *AMPHETAMINES SCREEN URINE NEGATIVE (NEGATIVE); *BARBITURATES SCREEN URINE NEGATIVE (NEGATIVE)
[2019-08-06 19:04] LABS: *BENZODIAZEPINES SCREEN URINE NEGATIVE (NEGATIVE); *COCAINE SCREEN URINE NEGATIVE (NEGATIVE); CANNABINOID URINE SCREEN NEGATIVE (NEGATIVE); METHADONE URINE SCREEN NEGATIVE (NEGATIVE); OPIATES URINE SCREEN NEGATIVE (NEGATIVE); PHENCYCLIDINE URINE SCREEN NEGATIVE (NEGATIVE)
[2019-08-06 20:00] VITALS: BP 135/96
[2019-08-06] MEDS: CARVEDILOL 3.125 MG TABLET PO SCH (21:56)
[2019-08-06] MEDS: ATORVASTATIN CALCIUM 20MG TABLET PO SCH (21:56)
[2019-08-07] VITALS (7 sets, daily range): BP systolic 130–138; BP diastolic 35–97
[2019-08-07] MEDS: HYDROCODONE/ACETAMINOPHEN 5/325MG TABLET PO PRN ×3 (05:49→23:27)
[2019-08-07] MEDS: PANTOPRAZOLE 40MG DR TABLET PO SCH (05:49)
[2019-08-07 06:22] LABS: HEMATOCRIT. 43.5 % (42.0-52.0); HEMOGLOBIN. 14.8 g/dL (14.0-18.0); MEAN CORPUSCULAR HEMOGLOBIN 32.1 pg (28.0-32.0); MEAN CORPUSCULAR VOLUME 94.4 fL (80.0-94.0); MEAN PLATELET VOLUME 9.1 fl (7.4-10.4); PLATELET 218 x1000/uL (130-400); RED BLOOD CELL COUNT 4.61 mill/uL (4.7-6.1); RED CELL DISTRIBUTION WIDTH 14.4 % (11.6-14.6)
[2019-08-07 08:02] LABS: CHLORIDE 105 mEq/L (98-107)
[2019-08-07] MEDS: FUROSEMIDE 40MG/4ML VIAL IV SCH ×2 (09:00→17:00)
[2019-08-07] MEDS: ENOXAPARIN 30MG/0.3ML SYR SUBCUT SCH ×2 (09:13→21:06)
[2019-08-07] MEDS: ASPIRIN 81MG TABLET PO SCH (09:14)
[2019-08-07] MEDS: CARVEDILOL 3.125 MG TABLET PO SCH ×2 (09:37→21:06)
[2019-08-07 13:56] LABS: PLATELET ESTIMATE NORMAL
[2019-08-07] MEDS: SPIRONOLACTONE 25MG TABLET PO SCH (17:54)
[2019-08-07] MEDS: LOSARTAN POTASSIUM 25 MG TABLET PO SCH (21:06)
[2019-08-07] MEDS: ATORVASTATIN CALCIUM 20MG TABLET PO SCH (21:07)
[2019-08-08 04:00] VITALS: BP 140/88
[2019-08-08] MEDS: HYDROCODONE/ACETAMINOPHEN 5/325MG TABLET PO PRN ×3 (05:01→20:30)
[2019-08-08 06:05] LABS: HEMATOCRIT. 48.7 % (42.0-52.0); HEMOGLOBIN. 16.1 g/dL (14.0-18.0); MEAN CORPUSCULAR HEMOGLOBIN 31.4 pg (28.0-32.0); MEAN CORPUSCULAR VOLUME 94.8 fL (80.0-94.0); PLATELET 227 x1000/uL (130-400); RED BLOOD CELL COUNT 5.13 mill/uL (4.7-6.1); RED CELL DISTRIBUTION WIDTH 14.9 % (11.6-14.6)
[2019-08-08 07:25] LABS: CHLORIDE 104 mEq/L (98-107)
[2019-08-08 08:00] VITALS: BP 170/91
[2019-08-08] MEDS: LOSARTAN POTASSIUM 25 MG TABLET PO SCH ×2 (08:41→20:29)
[2019-08-08] MEDS: ASPIRIN 81MG TABLET PO SCH (08:41)
[2019-08-08] MEDS: CLONIDINE 0.1MG TABLET PO PRN (08:41)
[2019-08-08] MEDS: CARVEDILOL 3.125 MG TABLET PO SCH ×2 (08:42→20:30)
[2019-08-08] MEDS: PANTOPRAZOLE 40MG DR TABLET PO SCH (08:42)
[2019-08-08] MEDS: SPIRONOLACTONE 25MG TABLET PO SCH (08:42)
[2019-08-08] MEDS: ENOXAPARIN 30MG/0.3ML SYR SUBCUT SCH ×2 (08:44→20:29)
[2019-08-08] MEDS: FUROSEMIDE 40MG/4ML VIAL IV SCH ×2 (10:53→18:43)
[2019-08-08 12:00] VITALS: BP 123/68
[2019-08-08 16:00] VITALS: BP 103/69
[2019-08-08 19:28] LABS: AMYLASE 135 IU/L (25-115)
[2019-08-08 20:00] VITALS: BP 130/85
[2019-08-08] MEDS: ATORVASTATIN CALCIUM 20MG TABLET PO SCH (20:29)
[2019-08-08 23:52] VITALS: BP 110/80
[2019-08-09 04:00] VITALS: BP 108/75
[2019-08-09] MEDS: PANTOPRAZOLE 40MG DR TABLET PO SCH (07:20)
[2019-08-09 07:59] LABS: PLATELET ESTIMATE NORMAL
[2019-08-09 08:00] VITALS: BP 118/83
[2019-08-09] MEDS ORDERED: REGADENOSON 0.4 MG/5 ML IV SCH (09:00)
[2019-08-09] MEDS: LOSARTAN POTASSIUM 25 MG TABLET PO SCH ×2 (09:52→21:08)
[2019-08-09] MEDS: ENOXAPARIN 30MG/0.3ML SYR SUBCUT SCH (09:52)
[2019-08-09] MEDS: CARVEDILOL 3.125 MG TABLET PO SCH ×2 (09:54→21:09)
[2019-08-09] MEDS: ASPIRIN 81MG TABLET PO SCH (09:54)
[2019-08-09] MEDS: SPIRONOLACTONE 25MG TABLET PO SCH (09:54)
[2019-08-09 10:11] LABS: HEMATOCRIT 49.8 % (42.0-52.0); HEMOGLOBIN 16.5 g/dL (14.0-18.0); MEAN CORPUSCULAR HEMOGLOBIN 31.4 pg (28.0-32.0); MEAN CORPUSCULAR VOLUME 94.5 fL (80.0-94.0); PLATELET 225 x1000/uL (130-400); RED BLOOD CELL COUNT 5.27 mill/uL (4.7-6.1); RED CELL DISTRIBUTION WIDTH 14.9 % (11.6-14.6)
[2019-08-09 10:41] LABS: CHLORIDE 106 mEq/L (98-107)
[2019-08-09] MEDS ORDERED: ATOR20TA PO (11:57)
[2019-08-09] MEDS ORDERED: LOSA25TA3 PO (11:57)
[2019-08-09] MEDS ORDERED: COR3 PO (11:57)
[2019-08-09 12:00] VITALS: BP 114/81
[2019-08-09] MEDS ORDERED: REGADENOSON 0.4 MG/5 ML IV ONE (13:42)
[2019-08-09 16:00] VITALS: BP 103/71
[2019-08-09] MEDS: FUROSEMIDE 40MG/4ML VIAL IV SCH (17:00)
[2019-08-09 20:00] VITALS: BP 114/73
[2019-08-09] MEDS ORDERED: FAMOTIDINE 20MG TABLET PO SCH (21:00)
[2019-08-09] MEDS: ATORVASTATIN CALCIUM 20MG TABLET PO SCH (21:09)
[2019-08-09] MEDS: FUROSEMIDE 40MG TABLET PO SCH (21:09)
[2019-08-09] MEDS: ENOXAPARIN 40MG/0.4ML SYR SUBCUT SCH (21:09)
[2019-08-10] VITALS: BP 126/86
[2019-08-10 04:00] VITALS: BP 126/70
[2019-08-10] MEDS: PANTOPRAZOLE 40MG DR TABLET PO SCH (06:22)
[2019-08-10 08:00] VITALS: BP 133/46
[2019-08-10] MEDS: LOSARTAN POTASSIUM 25 MG TABLET PO SCH ×2 (09:27→21:49)
[2019-08-10] MEDS: ASPIRIN 81MG TABLET PO SCH (09:28)
[2019-08-10] MEDS: ENOXAPARIN 40MG/0.4ML SYR SUBCUT SCH ×2 (09:28→21:48)
[2019-08-10] MEDS: SPIRONOLACTONE 25MG TABLET PO SCH (09:28)
[2019-08-10] MEDS: CARVEDILOL 3.125 MG TABLET PO SCH ×2 (09:28→21:48)
[2019-08-10] MEDS: FUROSEMIDE 40MG TABLET PO SCH ×2 (09:31→21:47)
[2019-08-10 12:00] VITALS: BP 120/60
[2019-08-10 12:40] LABS: CHLORIDE 108 mEq/L (98-107)
[2019-08-10] MEDS: IPRATROPIUM/ALBUTEROL 0.5-3(2.5)MG/3ML NEB HHN PRN (14:08)
[2019-08-10 16:00] VITALS: BP 120/74
[2019-08-10 20:00] VITALS: BP 111/62
[2019-08-10] MEDS: ATORVASTATIN CALCIUM 20MG TABLET PO SCH (21:47)
[2019-08-11] VITALS: BP 116/66
[2019-08-11 04:00] VITALS: BP 117/68
[2019-08-11] MEDS: PANTOPRAZOLE 40MG DR TABLET PO SCH (06:32)
[2019-08-11] MEDS: ASPIRIN 81MG TABLET PO SCH (09:20)
[2019-08-11] MEDS: SPIRONOLACTONE 25MG TABLET PO SCH (09:20)
[2019-08-11] MEDS: LOSARTAN POTASSIUM 25 MG TABLET PO SCH ×2 (09:20→21:10)
[2019-08-11] MEDS: FUROSEMIDE 40MG TABLET PO SCH ×2 (09:21→21:10)
[2019-08-11] MEDS: CARVEDILOL 3.125 MG TABLET PO SCH ×2 (09:21→21:10)
[2019-08-11] MEDS: ENOXAPARIN 40MG/0.4ML SYR SUBCUT SCH ×2 (09:22→21:11)
[2019-08-11 12:00] VITALS: BP 125/83
[2019-08-11 16:00] VITALS: BP 126/72
[2019-08-11 17:17] LABS: CHLORIDE 106 mEq/L (98-107)
[2019-08-11 20:00] VITALS: BP 108/75
[2019-08-11] MEDS: ATORVASTATIN CALCIUM 20MG TABLET PO SCH (21:10)
[2019-08-12] VITALS: BP 112/72
[2019-08-12 04:00] VITALS: BP 115/69
[2019-08-12 06:00] LABS: HEMATOCRIT. 43.1 % (42.0-52.0); HEMOGLOBIN. 14.6 g/dL (14.0-18.0); MEAN CORPUSCULAR HEMOGLOBIN 31.9 pg (28.0-32.0); MEAN CORPUSCULAR VOLUME 94.2 fL (80.0-94.0); MEAN PLATELET VOLUME 8.7 fl (7.4-10.4); PLATELET 233 x1000/uL (130-400); RED BLOOD CELL COUNT 4.58 mill/uL (4.7-6.1); RED CELL DISTRIBUTION WIDTH 14.8 % (11.6-14.6)
[2019-08-12 06:14] LABS: CHLORIDE 107 mEq/L (98-107)
[2019-08-12] MEDS: PANTOPRAZOLE 40MG DR TABLET PO SCH (06:28)
[2019-08-12 08:00] VITALS: BP 110/74
[2019-08-12 09:56] LABS: PLATELET ESTIMATE NORMAL
[2019-08-12] MEDS: SPIRONOLACTONE 25MG TABLET PO SCH (10:58)
[2019-08-12] MEDS: CARVEDILOL 3.125 MG TABLET PO SCH (10:58)
[2019-08-12] MEDS: ASPIRIN 81MG TABLET PO SCH (10:58)
[2019-08-12] MEDS: LOSARTAN POTASSIUM 25 MG TABLET PO SCH (10:58)
[2019-08-12] MEDS: ENOXAPARIN 40MG/0.4ML SYR SUBCUT SCH (10:59)
[2019-08-12] MEDS: FUROSEMIDE 40MG TABLET PO SCH (10:59)
[2019-08-12 12:00] VITALS: BP 100/52
[2019-08-12 16:00] VITALS: BP 131/82
[2019-08-12 18:50] VITALS: BP 135/74
== END 2019-08-12 20:50 | disposition home or self-care (01) | DRG 140 ==
LOC: ER 15:12 → 6WST 18:28 → EDBEDREQ 18:30 → ENRESERV 08-06 08:51
PROVIDERS: ADMIT Internal Medicine; ATTEND Internal Medicine
DX: J44.1 Chronic obstructive pulmonary disease with (acute) exacerbation (principal); J96.00 Acute respiratory failure, unspecified whether with hypoxia or hypercapnia; I50.23 Acute on chronic systolic (congestive) heart failure; I42.9 Cardiomyopathy, unspecified; E66.01 Morbid (severe) obesity due to excess calories; K76.0 Fatty (change of) liver, not elsewhere classified; I13.0 Hypertensive heart and chronic kidney disease with heart failure and stage 1 through stage 4 chronic kidney disease, or unspecified chronic kidney disease; I35.1 Nonrheumatic aortic (valve) insufficiency; D50.9 Iron deficiency anemia, unspecified; G47.33 Obstructive sleep apnea (adult) (pediatric); D63.1 Anemia in chronic kidney disease; D72.821 Monocytosis (symptomatic)
CPT/HCPCS: 36415; 71045; 76700; 78452; 78580; 80048; 80053; 80061; 80305; 82150; 82728; 83540; 83550; 83735; 83880; 84100; 84443; 84484; 85025; 85027; 87070; 87077; 90686; 90732; 93005; 93017; 93306; 93970; 94640; 99285; A9500; J1650; J1940; J2785

== ENCOUNTER 2019-10-11 19:41 | Inpatient (IN) | payer MEDICAID ==
[~2019-10-11] VITALS: Ht 162.6 cm; Wt 142.0 kg
[~2019-10-11 19:41] MED LIST changes: -AMLO2.5T45 MT; +ATOR20TA PO; -ATOR20TA65 MT; -CARV6.2548 MT; +COR3 PO; -LISI10TA5 MT; +LOSA25TA3 PO
[2019-10-11 22:48] LABS: BASOPHILS % 0.7 % (0.0-2.0); EOSINOPHILS % 1.9 % (0.0-5.0); HEMATOCRIT. 47.4 % (42.0-52.0); HEMOGLOBIN. 15.8 g/dL (14.0-18.0); LYMPHOCYTES % 23.2 % (20.0-50.0); MEAN CORPUSCULAR HEMOGLOBIN 31.7 pg (28.0-32.0); MEAN CORPUSCULAR VOLUME 95.3 fL (80.0-94.0); MEAN PLATELET VOLUME 8.7 fl (7.4-10.4); MONOCYTES % 10.9 % (2.0-8.0); NEUTROPHILS % 63.3 % (40.0-76.0); PLATELET 238 x1000/uL (130-400); RED BLOOD CELL COUNT 4.98 mill/uL (4.7-6.1); RED CELL DISTRIBUTION WIDTH 15.7 % (11.6-14.6)
[2019-10-11 22:53] LABS: CHLORIDE 111 mEq/L (98-107)
[2019-10-12 09:30] VITALS: BP 162/106
[2019-10-12] MEDS ORDERED: CLONIDINE 0.1MG TABLET PO PRN (09:30)
[2019-10-12] MEDS ORDERED: ONDANSETRON HCL 4MG/2ML INJ IV PRN (09:30)
[2019-10-12] MEDS ORDERED: ACETAMINOPHEN 325MG TABLET PO PRN (09:30)
[2019-10-12 09:36] VITALS: BP 162/106
[2019-10-12] MEDS ORDERED: CLONIDINE 0.1MG TABLET PO NR (10:00)
[2019-10-12] MEDS: FUROSEMIDE 40MG/4ML VIAL IVP SCH ×2 (10:12→17:54)
[2019-10-12] MEDS: ENOXAPARIN 40MG/0.4ML SYR SUBCUT SCH ×2 (10:13→22:58)
[2019-10-12 12:00] VITALS: BP 153/93
[2019-10-12] MEDS: ALBUTEROL 6.7GM HFA INHALER ORI SCH ×2 (14:00→17:45)
[2019-10-12 16:00] VITALS: BP 132/92
[2019-10-12] MEDS ORDERED: FLUTICASONE FUROATE 100 1 INH/CAP ORI SCH (17:00)
[2019-10-12 17:09] LABS: *BENZODIAZEPINES SCREEN URINE NEGATIVE (NEGATIVE)
[2019-10-12 17:10] LABS: *COCAINE SCREEN URINE NEGATIVE (NEGATIVE)
[2019-10-12 17:11] LABS: *AMPHETAMINES SCREEN URINE NEGATIVE (NEGATIVE); *BARBITURATES SCREEN URINE NEGATIVE (NEGATIVE); CANNABINOID URINE SCREEN NEGATIVE (NEGATIVE); METHADONE URINE SCREEN NEGATIVE (NEGATIVE); OPIATES URINE SCREEN NEGATIVE (NEGATIVE); PHENCYCLIDINE URINE SCREEN NEGATIVE (NEGATIVE)
[2019-10-12 20:00] VITALS: BP 177/98
[2019-10-12] MEDS ORDERED: HYDRALAZINE HCL 50MG TABLET PO SCH (21:00)
[2019-10-12] MEDS: CARVEDILOL 6.25 MG TABLET PO SCH (22:57)
[2019-10-12] MEDS: AMLODIPINE 5MG TABLET PO SCH (22:57)
[2019-10-13] VITALS: BP 143/92
[2019-10-13] MEDS: ALBUTEROL 6.7GM HFA INHALER ORI SCH ×2 (01:39→06:00)
[2019-10-13 04:00] VITALS: BP 156/108
[2019-10-13] MEDS: FUROSEMIDE 40MG/4ML VIAL IVP SCH (06:23)
[2019-10-13] MEDS: AMLODIPINE 5MG TABLET PO SCH ×2 (10:29→21:19)
[2019-10-13] MEDS: CARVEDILOL 6.25 MG TABLET PO SCH ×2 (10:33→21:19)
[2019-10-13] MEDS: ENOXAPARIN 40MG/0.4ML SYR SUBCUT SCH ×2 (10:37→21:20)
[2019-10-13] MEDS: HYDRALAZINE HCL 100MG TABLET PO SCH ×2 (10:39→21:19)
[2019-10-13 11:39] VITALS: BP 134/88
[2019-10-13] MEDS: FUROSEMIDE 100MG/10ML VIAL IV SCH (16:12)
[2019-10-13] MEDS: ASPIRIN 81MG EC TABLET PO SCH (16:12)
[2019-10-13] MEDS: IPRATROPIUM/ALBUTEROL 0.5-3(2.5)MG/3ML NEB HHN SCH ×3 (16:20→20:25)
[2019-10-13 18:01] VITALS: BP 148/88
[2019-10-13 20:00] VITALS: BP 156/93
[2019-10-13] MEDS: BUDESONIDE 0.5MG/2ML NEB HHN SCH (20:25)
[2019-10-14] VITALS: BP_SYST 130; BP_SYST 147; BP_SYST 154; BP_DIAS 85; BP_DIAS 86; BP_DIAS 87
[2019-10-14] MEDS: IPRATROPIUM/ALBUTEROL 0.5-3(2.5)MG/3ML NEB HHN SCH ×6 (00:55→20:51)
[2019-10-14 04:00] VITALS: BP 133/95
[2019-10-14 06:41] LABS: CHLORIDE 103 mEq/L (98-107)
[2019-10-14 06:52] LABS: BASOPHILS % 0.5 % (0.0-2.0); EOSINOPHILS % 1.2 % (0.0-5.0); HEMOGLOBIN. 14.9 g/dL (14.0-18.0); LYMPHOCYTES % 13.5 % (20.0-50.0); MEAN CORPUSCULAR HEMOGLOBIN 32.1 pg (28.0-32.0); MEAN CORPUSCULAR VOLUME 96.5 fL (80.0-94.0); MEAN PLATELET VOLUME 8.5 fl (7.4-10.4); NEUTROPHILS % 72.8 % (40.0-76.0); PLATELET 227 x1000/uL (130-400); RED BLOOD CELL COUNT 4.66 mill/uL (4.7-6.1); RED CELL DISTRIBUTION WIDTH 15.8 % (11.6-14.6)
[2019-10-14 08:00] VITALS: BP 129/78
[2019-10-14] MEDS: ASPIRIN 81MG EC TABLET PO SCH (08:53)
[2019-10-14] MEDS: HYDRALAZINE HCL 100MG TABLET PO SCH ×2 (08:54→20:28)
[2019-10-14] MEDS: ENOXAPARIN 40MG/0.4ML SYR SUBCUT SCH ×2 (08:54→20:29)
[2019-10-14] MEDS: FUROSEMIDE 100MG/10ML VIAL IV SCH ×2 (08:55→18:09)
[2019-10-14] MEDS: CARVEDILOL 6.25 MG TABLET PO SCH ×2 (09:00→20:29)
[2019-10-14] MEDS: AMLODIPINE 5MG TABLET PO SCH ×2 (09:05→20:29)
[2019-10-14] MEDS: BUDESONIDE 0.5MG/2ML NEB HHN SCH ×2 (10:14→20:51)
[2019-10-14 12:00] VITALS: BP 103/56
[2019-10-14] MEDS ORDERED: METOLAZONE 2.5MG TABLET PO NR (12:00)
[2019-10-14 16:00] VITALS: BP 147/64
[2019-10-14 20:00] VITALS: BP 147/90
[2019-10-15] VITALS (7 sets, daily range): BP systolic 125–145; BP diastolic 71–94
[2019-10-15] MEDS: IPRATROPIUM/ALBUTEROL 0.5-3(2.5)MG/3ML NEB HHN SCH ×5 (00:36→16:09)
[2019-10-15] MEDS: FUROSEMIDE 100MG/10ML VIAL IV SCH (08:26)
[2019-10-15] MEDS: BUDESONIDE 0.5MG/2ML NEB HHN SCH (08:30)
[2019-10-15] MEDS: ENOXAPARIN 40MG/0.4ML SYR SUBCUT SCH (08:41)
[2019-10-15] MEDS: CARVEDILOL 6.25 MG TABLET PO SCH (08:41)
[2019-10-15] MEDS: AMLODIPINE 5MG TABLET PO SCH (08:42)
[2019-10-15] MEDS: HYDRALAZINE HCL 100MG TABLET PO SCH (08:43)
[2019-10-15] MEDS: ASPIRIN 81MG EC TABLET PO SCH (08:43)
[2019-10-15] MEDS ORDERED: CARV25TA47 MT (11:55)
[2019-10-15] MEDS ORDERED: FURO40TA5 PO (11:55)
[2019-10-15] MEDS ORDERED: ALBU18HF2 IH (11:55)
[2019-10-15] MEDS ORDERED: LOSA50TA41 MT (11:55)
[2019-10-15] MEDS ORDERED: FLUT1DIS3 INH (11:55)
[2019-10-15] MEDS ORDERED: MECLIZINE 25MG TABLET PO PRN (12:45)
[2019-10-15] MEDS ORDERED: FUROSEMIDE 40MG TABLET PO SCH (18:00)
== END 2019-10-15 20:05 | disposition home or self-care (01) | DRG 140 ==
LOC: ER 19:41 → EDBEDREQ 23:35 → EDBEDREQTM 23:35 → 7WST 23:52 → ENRESERV 10-12 07:43 → 5WST 10-13 01:15
PROVIDERS: ADMIT Internal Medicine; ATTEND Internal Medicine
DX: J44.1 Chronic obstructive pulmonary disease with (acute) exacerbation (principal); J96.01 Acute respiratory failure with hypoxia; I50.23 Acute on chronic systolic (congestive) heart failure; J96.02 Acute respiratory failure with hypercapnia; N17.9 Acute kidney failure, unspecified; E87.8 Other disorders of electrolyte and fluid balance, not elsewhere classified; E66.01 Morbid (severe) obesity due to excess calories; I42.0 Dilated cardiomyopathy; G90.8 Other disorders of autonomic nervous system; I13.0 Hypertensive heart and chronic kidney disease with heart failure and stage 1 through stage 4 chronic kidney disease, or unspecified chronic kidney disease; F12.90 Cannabis use, unspecified, uncomplicated; R07.89 Other chest pain; E66.09 Other obesity due to excess calories; R79.89 Other specified abnormal findings of blood chemistry; K76.89 Other specified diseases of liver; I16.0 Hypertensive urgency; N18.9 Chronic kidney disease, unspecified; G47.33 Obstructive sleep apnea (adult) (pediatric); E78.5 Hyperlipidemia, unspecified; S31.105A Unspecified open wound of abdominal wall, periumbilic region without penetration into peritoneal cavity, initial encounter; Z20.828 Contact with and (suspected) exposure to other viral communicable diseases; X58.XXXA Exposure to other specified factors, initial encounter; R42 Dizziness and giddiness; T50.2X5A Adverse effect of carbonic-anhydrase inhibitors, benzothiadiazides and other diuretics, initial encounter; Y93.89 Activity, other specified; Y92.89 Other specified places as the place of occurrence of the external cause; Y99.8 Other external cause status; Z68.43 Body mass index [BMI] 50.0-59.9, adult; Z91.14 Patient's other noncompliance with medication regimen; Z82.3 Family history of stroke; Z82.49 Family history of ischemic heart disease and other diseases of the circulatory system; Z99.81 Dependence on supplemental oxygen; Z87.891 Personal history of nicotine dependence; Z71.3 Dietary counseling and surveillance; R07.2 Precordial pain
CPT/HCPCS: 36415; 71045; 80048; 80053; 80305; 83880; 84484; 85025; 93005; 93306; 94640; 99285; J1650; J1940; J2405; J7626; J8597; U0003-CS

== ENCOUNTER 2020-01-22 21:38 | Inpatient (IN) | payer MEDICAID ==
[~2020-01-22] VITALS: Ht 167.6 cm; Wt 156.5 kg
[~2020-01-22 21:38] MED LIST changes: +ALBU18HF2 IH; +CARV25TA47 MT; +FLUT1DIS3 INH; +FURO40TA5 PO; +LOSA50TA41 MT; -SPIR25TA6 MT
[2020-01-22] MEDS ORDERED: ATOR40TA70 PO (23:51)
[2020-01-22] MEDS ORDERED: FURO20TA4 PO (23:51)
[2020-01-22] MEDS ORDERED: ISOS10TA2 PO (23:51)
[2020-01-22] MEDS ORDERED: HYDR-4134 PO (23:51)
[2020-01-23 00:30] VITALS: BP 146/99
[2020-01-23] MEDS: IPRATROPIUM/ALBUTEROL 0.5-3(2.5)MG/3ML NEB HHN SCH ×5 (01:45→20:50)
[2020-01-23 04:00] VITALS: BP 175/86
[2020-01-23] MEDS: PANTOPRAZOLE 40MG DR TABLET PO SCH ×2 (05:42→17:24)
[2020-01-23] MEDS: HYDRALAZINE HCL 25MG TABLET PO SCH ×2 (05:42→13:24)
[2020-01-23 08:00] VITALS: BP 134/104
[2020-01-23] MEDS: ASPIRIN 81MG TABLET PO SCH (08:22)
[2020-01-23] MEDS: FUROSEMIDE 20MG TABLET PO SCH ×2 (08:23→21:39)
[2020-01-23] MEDS: LOSARTAN POTASSIUM 50 MG TABLET PO SCH ×2 (08:26→21:39)
[2020-01-23] MEDS: CARVEDILOL 12.5MG TABLET PO SCH ×2 (08:27→21:38)
[2020-01-23] MEDS ORDERED: CARVEDILOL 3.125 MG TABLET PO SCH (09:00)
[2020-01-23] MEDS ORDERED: MEDICATION NOT ON FORMULARY EA (Carvedilol 1 TAB) MT SCH (09:00)
[2020-01-23 12:00] VITALS: BP 128/68
[2020-01-23] MEDS ORDERED: MAGNESIUM/ALUMINUM HYDROXIDE/SIMETHICONE 30ML UDC PO PRN (12:00)
[2020-01-23 16:00] VITALS: BP 143/93
[2020-01-23] MEDS ORDERED: IPRATROPIUM/ALBUTEROL 0.5-3(2.5)MG/3ML NEB HHN PRN (16:00)
[2020-01-23] MEDS: PREDNISONE 20MG TABLET PO SCH (17:25)
[2020-01-23 20:00] VITALS: BP 132/70
[2020-01-23 20:42] LABS: EOSINOPHILS % 0.9 % (0.0-5.0); HEMATOCRIT. 36.4 % (42.0-52.0); HEMOGLOBIN. 11.8 g/dL (14.0-18.0); LYMPHOCYTES % 13.7 % (20.0-50.0); MEAN CORPUSCULAR VOLUME 95.4 fL (80.0-94.0); MEAN PLATELET VOLUME 8.5 fl (7.4-10.4); MONOCYTES % 9.2 % (2.0-8.0); NEUTROPHILS % 75.2 % (40.0-76.0); PLATELET 190 x1000/uL (130-400); RED BLOOD CELL COUNT 3.81 mill/uL (4.7-6.1); RED CELL DISTRIBUTION WIDTH 16.7 % (11.6-14.6)
[2020-01-23 20:48] LABS: CHLORIDE 109 mEq/L (98-107)
[2020-01-23] MEDS: ATORVASTATIN CALCIUM 20MG TABLET PO SCH (21:39)
[2020-01-24] VITALS: BP 132/76
[2020-01-24] MEDS: HYDRALAZINE HCL 25MG TABLET PO SCH ×4 (00:16→22:58)
[2020-01-24] MEDS: IPRATROPIUM/ALBUTEROL 0.5-3(2.5)MG/3ML NEB HHN SCH ×4 (02:14→20:44)
[2020-01-24 04:00] VITALS: BP 124/77
[2020-01-24] MEDS: PANTOPRAZOLE 40MG DR TABLET PO SCH ×2 (06:44→16:41)
[2020-01-24 08:00] VITALS: BP 140/86
[2020-01-24] MEDS: ASPIRIN 81MG TABLET PO SCH (09:14)
[2020-01-24] MEDS: PREDNISONE 20MG TABLET PO SCH (09:15)
[2020-01-24] MEDS: CARVEDILOL 12.5MG TABLET PO SCH ×2 (09:15→21:26)
[2020-01-24] MEDS: LOSARTAN POTASSIUM 50 MG TABLET PO SCH ×2 (09:15→21:27)
[2020-01-24 10:16] LABS: HEMATOCRIT. 36.1 % (42.0-52.0); HEMOGLOBIN. 11.9 g/dL (14.0-18.0); MEAN CORPUSCULAR HEMOGLOBIN 31.5 pg (28.0-32.0); MEAN CORPUSCULAR VOLUME 95.4 fL (80.0-94.0); MEAN PLATELET VOLUME 8.4 fl (7.4-10.4); PLATELET 192 x1000/uL (130-400); RED BLOOD CELL COUNT 3.78 mill/uL (4.7-6.1)
[2020-01-24 10:39] LABS: CHLORIDE 106 mEq/L (98-107)
[2020-01-24 12:00] VITALS: BP 163/92
[2020-01-24] MEDS: ENOXAPARIN 40MG/0.4ML SYR SUBCUT SCH ×2 (12:16→21:27)
[2020-01-24] MEDS: CLONIDINE 0.1MG TABLET PO PRN (12:36)
[2020-01-24] MEDS: FUROSEMIDE 20MG TABLET PO SCH ×2 (14:39→21:26)
[2020-01-24 16:00] VITALS: BP 136/90
[2020-01-24 20:00] VITALS: BP 177/99
[2020-01-24 21:04] LABS: PLATELET ESTIMATE NORMAL
[2020-01-24] MEDS: ATORVASTATIN CALCIUM 20MG TABLET PO SCH (21:27)
[2020-01-25] VITALS: BP 154/94
[2020-01-25] MEDS: IPRATROPIUM/ALBUTEROL 0.5-3(2.5)MG/3ML NEB HHN SCH ×4 (01:46→21:18)
[2020-01-25 04:00] VITALS: BP 129/83
[2020-01-25] MEDS: HYDRALAZINE HCL 25MG TABLET PO SCH ×3 (06:23→21:52)
[2020-01-25] MEDS: PANTOPRAZOLE 40MG DR TABLET PO SCH (06:23)
[2020-01-25 06:50] LABS: BASOPHILS % 0.7 % (0.0-2.0); EOSINOPHILS % 0.2 % (0.0-5.0); HEMATOCRIT. 38.5 % (42.0-52.0); HEMOGLOBIN. 12.5 g/dL (14.0-18.0); LYMPHOCYTES % 14.6 % (20.0-50.0); MEAN CORPUSCULAR VOLUME 95.6 fL (80.0-94.0); MEAN PLATELET VOLUME 8.4 fl (7.4-10.4); MONOCYTES % 13.3 % (2.0-8.0); NEUTROPHILS % 71.2 % (40.0-76.0); PLATELET 219 x1000/uL (130-400); RED BLOOD CELL COUNT 4.03 mill/uL (4.7-6.1); RED CELL DISTRIBUTION WIDTH 16.9 % (11.6-14.6)
[2020-01-25 08:00] VITALS: BP 135/100
[2020-01-25] MEDS: FUROSEMIDE 20MG TABLET PO SCH ×2 (08:47→21:53)
[2020-01-25] MEDS: PREDNISONE 20MG TABLET PO SCH (08:47)
[2020-01-25] MEDS: CARVEDILOL 12.5MG TABLET PO SCH ×2 (08:48→21:53)
[2020-01-25] MEDS: ENOXAPARIN 40MG/0.4ML SYR SUBCUT SCH ×2 (08:48→21:54)
[2020-01-25] MEDS: ASPIRIN 81MG TABLET PO SCH (08:49)
[2020-01-25] MEDS: LOSARTAN POTASSIUM 50 MG TABLET PO SCH ×2 (09:00→21:53)
[2020-01-25 12:00] VITALS: BP 128/77
[2020-01-25 14:55] LABS: BG BASE EXCESS -0.8 mmol/L (-2.0-2.0); BG CARBOXYHEMOGLOBIN 0.7 % (0.5-1.5); BG DEOXYHEMOGLOBIN 6.8 % (0.0-5.0); BG FRACTION INSPIRED OXYGEN 21; BG HCO3 ACT 22.8 mmol/L (22.0-26.0); BG METHEMOGLOBIN 0.1 % (0.0-1.5); BG OXYGEN SATURATION 93.1 % (92.0-98.5); BG OXYHEMOGLOBIN 92.4 % (94.0-97.0); BG PCO2 34.8 mmHg (35.0-45.0); BG PH 7.435 (7.350-7.450); BG PO2 68.8 mmHg (75.0-100.0); BG SAMPLE SITE RIGHT RADIAL; BG TOTAL HEMOGLOBIN 13.7 g/dL (12.0-18.0); BG VENT MODE ROOM AIR
[2020-01-25 16:00] VITALS: BP 139/93
[2020-01-25] MEDS: FAMOTIDINE 20MG TABLET PO SCH (18:47)
[2020-01-25 20:00] VITALS: BP 141/85
[2020-01-25] MEDS: ATORVASTATIN CALCIUM 20MG TABLET PO SCH (21:53)
[2020-01-26] VITALS: BP 166/95
[2020-01-26] MEDS: CLONIDINE 0.1MG TABLET PO PRN (01:23)
[2020-01-26] MEDS: IPRATROPIUM/ALBUTEROL 0.5-3(2.5)MG/3ML NEB HHN SCH ×3 (01:51→14:11)
[2020-01-26 04:00] VITALS: BP 105/78
[2020-01-26] MEDS: HYDRALAZINE HCL 25MG TABLET PO SCH ×2 (06:00→14:06)
[2020-01-26] MEDS: FAMOTIDINE 20MG TABLET PO SCH (06:34)
[2020-01-26] MEDS: FUROSEMIDE 20MG TABLET PO SCH (09:11)
[2020-01-26] MEDS: ENOXAPARIN 40MG/0.4ML SYR SUBCUT SCH (09:11)
[2020-01-26] MEDS: PREDNISONE 20MG TABLET PO SCH (09:12)
[2020-01-26] MEDS: ASPIRIN 81MG TABLET PO SCH (09:12)
[2020-01-26] MEDS: CARVEDILOL 12.5MG TABLET PO SCH (09:12)
[2020-01-26] MEDS: LOSARTAN POTASSIUM 50 MG TABLET PO SCH (09:12)
[2020-01-26] MEDS ORDERED: FUROSEMIDE 40MG/4ML VIAL IVP SCH (11:15)
[2020-01-26 12:00] VITALS: BP 105/84
[2020-01-26] MEDS ORDERED: CARV25TA47 MT (12:13)
[2020-01-26] MEDS ORDERED: FURO40TA5 PO (12:13)
[2020-01-26] MEDS ORDERED: NYSTATIN POWDER 15GM TOP SCH (14:00)
== END 2020-01-26 16:20 | disposition home or self-care (01) | DRG 194 ==
LOC: ER 21:38 → 6EST 22:49 → ENRESERV 23:32
PROVIDERS: ADMIT Internal Medicine; ATTEND Internal Medicine
DX: I13.0 Hypertensive heart and chronic kidney disease with heart failure and stage 1 through stage 4 chronic kidney disease, or unspecified chronic kidney disease (principal); J44.1 Chronic obstructive pulmonary disease with (acute) exacerbation; N17.0 Acute kidney failure with tubular necrosis; I42.9 Cardiomyopathy, unspecified; E78.5 Hyperlipidemia, unspecified; F12.90 Cannabis use, unspecified, uncomplicated; G47.33 Obstructive sleep apnea (adult) (pediatric); J96.20 Acute and chronic respiratory failure, unspecified whether with hypoxia or hypercapnia; E66.01 Morbid (severe) obesity due to excess calories; N18.9 Chronic kidney disease, unspecified; I50.33 Acute on chronic diastolic (congestive) heart failure; Z82.49 Family history of ischemic heart disease and other diseases of the circulatory system; Z91.14 Patient's other noncompliance with medication regimen; Z99.81 Dependence on supplemental oxygen; Z68.43 Body mass index [BMI] 50.0-59.9, adult; Z79.899 Other long term (current) drug therapy
CPT/HCPCS: 36415; 36600; 71045; 80048; 80053; 82375; 82805; 83880; 85025; 93306; 93970; 94640; 94660; 97162; 97166; 97535; 99285; J1650; J7512

== ENCOUNTER 2020-09-26 10:34 | Inpatient (IN) | payer MEDICAID ==
[~2020-09-26] VITALS: Ht 170.2 cm; Wt 124.7 kg
[~2020-09-26 10:34] MED LIST changes: +AMI2 PO; +APIX5TAB MT; -COR3 PO; -FURO40TA5 MT; +FURO80TA87 MT; +ISOS10TA2 PO; -LOSA25TA3 PO; +METO2.5T2 MT; -METO5TAB7 MT; -PANT40TA4 MT; +PANT40TA51 MT
[2020-09-26] MEDS ORDERED: ALBUTEROL (0.083%) 2.5MG/3ML NEB HHN STA (10:47)
[2020-09-26] MEDS ORDERED: METHYLPREDNISOLONE SOD SUCC 125 MG/2 ML VIAL IV STA (10:47)
[2020-09-26] MEDS ORDERED: IPRATROPIUM BROMIDE (0.02%) 0.5MG/2.5ML NEB HHN STA (10:47)
[2020-09-26] MEDS ORDERED: ASPIRIN 81MG TABLET PO ONE (11:00)
[2020-09-26] MEDS ORDERED: FUROSEMIDE 40MG/4ML VIAL IV ONE (11:00)
[2020-09-26] MEDS ORDERED: NITROGLYCERIN OINT 1GM/INCH UDPKT TD ONE (11:00)
[2020-09-26] MEDS ORDERED: SODIUM CHLORIDE 0.9% 1,000 ML IV ONE (11:00)
[2020-09-26 11:56] LABS: HEMATOCRIT. 38.8 % (42.0-52.0); HEMOGLOBIN. 12.3 g/dL (14.0-18.0); MEAN CORPUSCULAR HEMOGLOBIN 25.8 pg (28.0-32.0); MEAN CORPUSCULAR VOLUME 81.3 fL (80.0-94.0); MEAN PLATELET VOLUME 7.9 fl (7.4-10.4); PLATELET 204 x1000/uL (130-400); RED BLOOD CELL COUNT 4.77 mill/uL (4.7-6.1); RED CELL DISTRIBUTION WIDTH 22.6 % (11.6-14.6)
[2020-09-26 12:05] LABS: CHLORIDE 112 mEq/L (98-107)
[2020-09-26 12:22] LABS: PLATELET ESTIMATE NORMAL
[2020-09-26 18:12] VITALS: BP 139/86
[2020-09-26] MEDS ORDERED: HYDROCODONE/ACETAMINOPHEN 10/325MG TABLET PO PRN (18:45)
[2020-09-26] MEDS ORDERED: IPRATROPIUM/ALBUTEROL 0.5-3(2.5)MG/3ML NEB HHN PRN (18:45)
[2020-09-26 20:00] VITALS: BP 150/89
[2020-09-26] MEDS: PANTOPRAZOLE 40MG DR TABLET PO SCH (21:41)
[2020-09-26] MEDS: LOSARTAN POTASSIUM 50 MG TABLET PO SCH (21:41)
[2020-09-26] MEDS: CARVEDILOL 3.125 MG TABLET PO SCH (21:41)
[2020-09-26] MEDS: AMIODARONE HCL 200 MG TABLET PO SCH (21:42)
[2020-09-26] MEDS: ATORVASTATIN CALCIUM 20MG TABLET PO SCH (21:42)
[2020-09-26] MEDS: ISOSORBIDE DINITRATE 10MG TABLET PO SCH (21:42)
[2020-09-27] VITALS: BP 127/82
[2020-09-27 04:00] VITALS: BP 121/67
[2020-09-27] MEDS: ISOSORBIDE DINITRATE 10MG TABLET PO SCH ×3 (06:25→21:12)
[2020-09-27] MEDS: PANTOPRAZOLE 40MG DR TABLET PO SCH ×2 (06:25→21:13)
[2020-09-27] MEDS: IPRATROPIUM/ALBUTEROL 0.5-3(2.5)MG/3ML NEB HHN SCH ×4 (08:01→20:44)
[2020-09-27 08:12] VITALS: BP 161/97
[2020-09-27] MEDS ORDERED: FUROSEMIDE 40MG/4ML VIAL IVP SCH (09:00)
[2020-09-27] MEDS: APIXABAN 5 MG TABLET PO SCH ×2 (09:00→17:20)
[2020-09-27] MEDS: AMIODARONE HCL 200 MG TABLET PO SCH ×2 (09:18→21:12)
[2020-09-27] MEDS: LOSARTAN POTASSIUM 50 MG TABLET PO SCH ×2 (09:19→21:13)
[2020-09-27] MEDS: CARVEDILOL 3.125 MG TABLET PO SCH ×2 (09:19→21:12)
[2020-09-27 12:03] VITALS: BP 104/74
[2020-09-27] MEDS: FUROSEMIDE 100MG/10ML VIAL IVP SCH ×2 (14:16→17:20)
[2020-09-27] MEDS: METHYLPREDNISOLONE SOD SUCC 40 MG/ML VIAL IV SCH ×2 (14:16→21:12)
[2020-09-27 16:14] VITALS: BP 131/89
[2020-09-27 20:00] VITALS: BP 134/88
[2020-09-27] MEDS: ATORVASTATIN CALCIUM 20MG TABLET PO SCH (21:15)
[2020-09-27 21:36] LABS: CLARITY URINE CLEAR (CLEAR); COLOR URINE YELLOW (YELLOW); KETONES URINE NEGATIVE (NEGATIVE); LEUKOCYTE ESTERASE URINE NEGATIVE (NEGATIVE); NITRITE URINE NEGATIVE (NEGATIVE); OCCULT BLOOD URINE NEGATIVE (NEGATIVE); PROTEIN URINE NEGATIVE (NEGATIVE); SPECIFIC GRAVITY URINE 1.008 (1.005-1.030); UROBILINOGEN URINE 0.2 E.U./dL (0.2-1.0)
[2020-09-28] VITALS: BP 145/85
[2020-09-28] MEDS: IPRATROPIUM/ALBUTEROL 0.5-3(2.5)MG/3ML NEB HHN SCH ×5 (00:34→21:43)
[2020-09-28 04:00] VITALS: BP 156/85
[2020-09-28] MEDS: ISOSORBIDE DINITRATE 10MG TABLET PO SCH ×3 (05:55→20:28)
[2020-09-28] MEDS: METHYLPREDNISOLONE SOD SUCC 40 MG/ML VIAL IV SCH ×3 (05:55→20:27)
[2020-09-28] MEDS: FUROSEMIDE 100MG/10ML VIAL IVP SCH ×2 (06:17→17:07)
[2020-09-28] MEDS: PANTOPRAZOLE 40MG DR TABLET PO SCH (06:23)
[2020-09-28 08:15] VITALS: BP 114/66
[2020-09-28] MEDS: APIXABAN 5 MG TABLET PO SCH ×2 (09:52→17:07)
[2020-09-28] MEDS: AMIODARONE HCL 200 MG TABLET PO SCH ×2 (09:52→20:27)
[2020-09-28] MEDS: LOSARTAN POTASSIUM 50 MG TABLET PO SCH ×2 (09:53→20:28)
[2020-09-28] MEDS: CARVEDILOL 3.125 MG TABLET PO SCH ×2 (09:57→20:27)
[2020-09-28 12:20] VITALS: BP 122/76
[2020-09-28 16:11] VITALS: BP 149/97
[2020-09-28 20:00] VITALS: BP 131/87
[2020-09-28] MEDS: FAMOTIDINE 20MG TABLET PO SCH (20:27)
[2020-09-28] MEDS: ATORVASTATIN CALCIUM 20MG TABLET PO SCH (20:28)
[2020-09-29] VITALS: BP 121/60
[2020-09-29] MEDS: IPRATROPIUM/ALBUTEROL 0.5-3(2.5)MG/3ML NEB HHN SCH ×5 (01:08→15:57)
[2020-09-29 04:00] VITALS: BP 124/84
[2020-09-29] MEDS: ISOSORBIDE DINITRATE 10MG TABLET PO SCH (06:05)
[2020-09-29] MEDS: METHYLPREDNISOLONE SOD SUCC 40 MG/ML VIAL IV SCH (06:05)
[2020-09-29] MEDS: FAMOTIDINE 20MG TABLET PO SCH (06:06)
[2020-09-29] MEDS: FUROSEMIDE 100MG/10ML VIAL IVP SCH (06:06)
[2020-09-29 08:00] VITALS: BP 127/69
[2020-09-29] MEDS ORDERED: FURO80TA87 MT (09:08)
[2020-09-29] MEDS ORDERED: CARV25TA47 MT (09:08)
[2020-09-29] MEDS ORDERED: LOSA50TA41 MT (09:08)
[2020-09-29] MEDS ORDERED: AMI2 PO (09:08)
[2020-09-29] MEDS ORDERED: METO2.5T2 MT (09:08)
[2020-09-29] MEDS: AMIODARONE HCL 200 MG TABLET PO SCH (09:27)
[2020-09-29] MEDS: CARVEDILOL 3.125 MG TABLET PO SCH (09:27)
[2020-09-29] MEDS: LOSARTAN POTASSIUM 50 MG TABLET PO SCH (09:28)
[2020-09-29] MEDS: APIXABAN 5 MG TABLET PO SCH (09:28)
[2020-09-29 12:00] VITALS: BP 128/84
[2020-09-29 14:26] VITALS: BP 117/67
[2020-09-29 16:00] VITALS: BP 117/67
== END 2020-09-29 20:25 | disposition home or self-care (01) | DRG 140 ==
LOC: ER 11:02 → 6WST 15:33 → EDBEDREQ 15:35 → ENRESERV 16:16
PROVIDERS: ADMIT Internal Medicine; ATTEND Internal Medicine
PROC: 5A09357 Assistance with Respiratory Ventilation, Less than 24 Consecutive Hours, Continuous Positive Airway Pressure (ICD-10-PCS; principal; 2020-09-27)
PROC: 5A09357 Assistance with Respiratory Ventilation, Less than 24 Consecutive Hours, Continuous Positive Airway Pressure (ICD-10-PCS; 2020-09-28)
DX: J44.1 Chronic obstructive pulmonary disease with (acute) exacerbation (principal); I50.23 Acute on chronic systolic (congestive) heart failure; E87.8 Other disorders of electrolyte and fluid balance, not elsewhere classified; I43 Cardiomyopathy in diseases classified elsewhere; Z68.41 Body mass index [BMI] 40.0-44.9, adult; I48.91 Unspecified atrial fibrillation; G43.909 Migraine, unspecified, not intractable, without status migrainosus; D64.9 Anemia, unspecified; I11.0 Hypertensive heart disease with heart failure; E66.9 Obesity, unspecified; D72.825 Bandemia; G47.33 Obstructive sleep apnea (adult) (pediatric); Z79.899 Other long term (current) drug therapy; Z79.82 Long term (current) use of aspirin; Z71.3 Dietary counseling and surveillance; Z86.73 Personal history of transient ischemic attack (TIA), and cerebral infarction without residual deficits
CPT/HCPCS: 36415; 71045; 80053; 81003; 83880; 84145; 84484; 85025; 93005; 93306; 94640; 94644; 94660; 99285; C1893; J1940; J2920; J2930; J7030

== ENCOUNTER 2021-01-08 14:19 | Inpatient (IN) | payer MEDICAID, OTHER ==
[~2021-01-08] VITALS: Ht 162.6 cm; Wt 136.1 kg
[~2021-01-08 14:19] MED LIST changes: +CLOP75TA15 PO; +CLOP75TA4 MT; +COR12 PO; -FURO40TA5 PO; +ISOS30TA91 PO; +LIP40 PO
[2021-01-08] MEDS ORDERED: NITROGLYCERIN OINT 1GM/INCH UDPKT TD ONE (15:30)
[2021-01-08] MEDS ORDERED: FUROSEMIDE 40MG/4ML VIAL IVP ONE (15:30)
[2021-01-08 15:54] LABS: HEMATOCRIT. 38.3 % (42.0-52.0); HEMOGLOBIN. 12.2 g/dL (14.0-18.0); MEAN CORPUSCULAR HEMOGLOBIN 29.2 pg (28.0-32.0); MEAN CORPUSCULAR VOLUME 91.9 fL (80.0-94.0); MEAN PLATELET VOLUME 7.7 fl (7.4-10.4); PLATELET 235 x1000/uL (130-400); RED BLOOD CELL COUNT 4.17 mill/uL (4.7-6.1); RED CELL DISTRIBUTION WIDTH 17.1 % (11.6-14.6)
[2021-01-08 16:03] LABS: CHLORIDE 110 mEq/L (98-107)
[2021-01-08 16:07] LABS: ETHANOL BLOOD < 10 mg/dL
[2021-01-08] MEDS ORDERED: NITROGLYCERIN 50MG PREMIX 250 ML IV ONE (17:00)
[2021-01-08 17:04] LABS: CLARITY URINE CLEAR (CLEAR); COLOR URINE YELLOW (YELLOW); KETONES URINE NEGATIVE (NEGATIVE); LEUKOCYTE ESTERASE URINE NEGATIVE (NEGATIVE); NITRITE URINE NEGATIVE (NEGATIVE); OCCULT BLOOD URINE NEGATIVE (NEGATIVE); PROTEIN URINE NEGATIVE (NEGATIVE); SPECIFIC GRAVITY URINE 1.009 (1.005-1.030); UROBILINOGEN URINE 0.2 E.U./dL (0.2-1.0)
[2021-01-08 17:04] LABS: PLATELET ESTIMATE NORMAL
[2021-01-08 17:28] LABS: *AMPHETAMINES SCREEN URINE NEGATIVE (NEGATIVE); *BARBITURATES SCREEN URINE NEGATIVE (NEGATIVE); *BENZODIAZEPINES SCREEN URINE NEGATIVE (NEGATIVE); *COCAINE SCREEN URINE NEGATIVE (NEGATIVE)
[2021-01-08 17:29] LABS: CANNABINOID URINE SCREEN NEGATIVE (NEGATIVE); METHADONE URINE SCREEN NEGATIVE (NEGATIVE); OPIATES URINE SCREEN NEGATIVE (NEGATIVE); PHENCYCLIDINE URINE SCREEN NEGATIVE (NEGATIVE)
[2021-01-09] MEDS ORDERED: PROMETHAZINE+CODEINE 6.25-10MG/5ML PO PRN (02:00)
[2021-01-09] MEDS ORDERED: GUAIFENESIN/CODEINE 100-10MG/5ML UDC PO PRN (03:30)
[2021-01-09] MEDS ORDERED: GUAIFENESIN/CODEINE 200-20MG/10ML UDC PO PRN (03:30)
[2021-01-09] MEDS ORDERED: ACETAMINOPHEN 325MG TABLET PO PRN (08:30)
[2021-01-09] MEDS ORDERED: ONDANSETRON HCL 4MG/2ML INJ IV PRN (08:30)
[2021-01-09] MEDS: FUROSEMIDE 100MG/10ML VIAL IVP SCH ×2 (09:11→17:52)
[2021-01-09] MEDS: ASPIRIN 81MG TABLET PO SCH (09:11)
[2021-01-09] MEDS: CARVEDILOL 12.5MG TABLET PO SCH ×2 (10:25→22:30)
[2021-01-09] MEDS: LOSARTAN POTASSIUM 100 MG TABLET PO SCH (10:25)
[2021-01-09] MEDS: CLOPIDOGREL 75MG TABLET PO SCH (13:34)
[2021-01-09] MEDS: HYDROCODONE/ACETAMINOPHEN 5/325MG TABLET PO PRN (17:26)
[2021-01-09] MEDS ORDERED: NALOXONE HCL 0.4MG/ML VIAL IV PRN (22:15)
[2021-01-09 23:12] VITALS: BP 95/56
[2021-01-10] VITALS: BP 95/56
[2021-01-10 00:46] VITALS: BP 95/56
[2021-01-10 04:00] VITALS: BP 114/80
[2021-01-10] MEDS: FUROSEMIDE 100MG/10ML VIAL IVP SCH ×2 (06:16→17:26)
[2021-01-10 07:48] LABS: HEMATOCRIT. 36.6 % (42.0-52.0); HEMOGLOBIN. 11.9 g/dL (14.0-18.0); MEAN CORPUSCULAR HEMOGLOBIN 30.2 pg (28.0-32.0); MEAN CORPUSCULAR VOLUME 92.7 fL (80.0-94.0); MEAN PLATELET VOLUME 8.6 fl (7.4-10.4); PLATELET 199 x1000/uL (130-400); RED BLOOD CELL COUNT 3.95 mill/uL (4.7-6.1); RED CELL DISTRIBUTION WIDTH 17.2 % (11.6-14.6)
[2021-01-10] MEDS: CARVEDILOL 12.5MG TABLET PO SCH ×2 (08:32→21:00)
[2021-01-10] MEDS: CLOPIDOGREL 75MG TABLET PO SCH (08:32)
[2021-01-10] MEDS: ASPIRIN 81MG TABLET PO SCH (08:33)
[2021-01-10] MEDS: LOSARTAN POTASSIUM 100 MG TABLET PO SCH (08:33)
[2021-01-10 12:00] VITALS: BP 104/59
[2021-01-10 16:12] VITALS: BP 108/74
[2021-01-10 16:26] LABS: PLATELET ESTIMATE NORMAL
[2021-01-10 20:00] VITALS: BP 105/66
[2021-01-11] VITALS (7 sets, daily range): BP systolic 96–127; BP diastolic 45–78
[2021-01-11] MEDS: FUROSEMIDE 100MG/10ML VIAL IVP SCH ×2 (06:20→18:17)
[2021-01-11] MEDS: HYDROCODONE/ACETAMINOPHEN 5/325MG TABLET PO PRN (06:25)
[2021-01-11] MEDS: LOSARTAN POTASSIUM 100 MG TABLET PO SCH (08:17)
[2021-01-11] MEDS: CARVEDILOL 12.5MG TABLET PO SCH (08:17)
[2021-01-11] MEDS: CLOPIDOGREL 75MG TABLET PO SCH (08:17)
[2021-01-11] MEDS: ASPIRIN 81MG TABLET PO SCH (08:17)
[2021-01-11 08:20] LABS: BASOPHILS % 0.8 % (0.0-2.0); EOSINOPHILS % 2.8 % (0.0-5.0); HEMATOCRIT. 39.9 % (42.0-52.0); HEMOGLOBIN. 12.9 g/dL (14.0-18.0); LYMPHOCYTES % 11.9 % (20.0-50.0); MEAN CORPUSCULAR HEMOGLOBIN 29.5 pg (28.0-32.0); MEAN CORPUSCULAR VOLUME 91.2 fL (80.0-94.0); MEAN PLATELET VOLUME 8.3 fl (7.4-10.4); MONOCYTES % 14.6 % (2.0-8.0); NEUTROPHILS % 69.9 % (40.0-76.0); PLATELET 211 x1000/uL (130-400); RED BLOOD CELL COUNT 4.37 mill/uL (4.7-6.1); RED CELL DISTRIBUTION WIDTH 17.1 % (11.6-14.6)
[2021-01-11] MEDS ORDERED: POLYVINYL ALCOHOL OPHTH DROPS 15ML EACHEYE PRN (19:00)
[2021-01-11] MEDS ORDERED: ERYTHROMYCIN BASE 0.5% OPHTH OINT 3.5GM EACHEYE SCH (21:00)
[2021-01-12] MEDS ORDERED: LOSARTAN POTASSIUM 25 MG TABLET PO SCH (09:00)
== END 2021-01-11 20:55 | disposition home or self-care (01) | DRG 194 ==
LOC: ER 14:19 → MICUSO 20:02 → 6WST 01-09 22:10
PROVIDERS: ADMIT Internal Medicine; ATTEND Internal Medicine
PROC: 5A09357 Assistance with Respiratory Ventilation, Less than 24 Consecutive Hours, Continuous Positive Airway Pressure (ICD-10-PCS; principal; 2021-01-08)
DX: I13.0 Hypertensive heart and chronic kidney disease with heart failure and stage 1 through stage 4 chronic kidney disease, or unspecified chronic kidney disease (principal); J96.00 Acute respiratory failure, unspecified whether with hypoxia or hypercapnia; E44.1 Mild protein-calorie malnutrition; Z68.43 Body mass index [BMI] 50.0-59.9, adult; E11.22 Type 2 diabetes mellitus with diabetic chronic kidney disease; D64.9 Anemia, unspecified; I42.0 Dilated cardiomyopathy; E78.5 Hyperlipidemia, unspecified; I50.23 Acute on chronic systolic (congestive) heart failure; E66.01 Morbid (severe) obesity due to excess calories; J44.9 Chronic obstructive pulmonary disease, unspecified; N18.9 Chronic kidney disease, unspecified; I08.0 Rheumatic disorders of both mitral and aortic valves; E87.8 Other disorders of electrolyte and fluid balance, not elsewhere classified; G43.909 Migraine, unspecified, not intractable, without status migrainosus; Z20.822 Contact with and (suspected) exposure to COVID-19; I25.10 Atherosclerotic heart disease of native coronary artery without angina pectoris; Z79.02 Long term (current) use of antithrombotics/antiplatelets; Z79.82 Long term (current) use of aspirin; Z79.899 Other long term (current) drug therapy; Z82.49 Family history of ischemic heart disease and other diseases of the circulatory system; Z83.3 Family history of diabetes mellitus; Z86.73 Personal history of transient ischemic attack (TIA), and cerebral infarction without residual deficits; Z87.891 Personal history of nicotine dependence; Z95.5 Presence of coronary angioplasty implant and graft; Z99.81 Dependence on supplemental oxygen; Z71.3 Dietary counseling and surveillance
CPT/HCPCS: 36415; 71045; 80048; 80053; 80305; 80320; 81003; 83880; 84484; 85025; 87426; 93005; 94660; 99285; C1893; J1940; J3490; G0480

== ENCOUNTER 2021-03-22 22:06 | Inpatient (IN) | payer OTHER ==
[~2021-03-22] VITALS: Ht 162.6 cm; Wt 135.9 kg
[~2021-03-22 22:06] MED LIST changes: +CLOP-31 MT; -CLOP75TA4 MT
[2021-03-22 23:06] LABS: BASOPHILS % 0.5 % (0.0-2.0); EOSINOPHILS % 1.6 % (0.0-5.0); HEMATOCRIT. 35.7 % (42.0-52.0); HEMOGLOBIN. 11.4 g/dL (14.0-18.0); LYMPHOCYTES % 11.5 % (20.0-50.0); MEAN CORPUSCULAR VOLUME 91.1 fL (80.0-94.0); MEAN PLATELET VOLUME 8.2 fl (7.4-10.4); MONOCYTES % 12.9 % (2.0-8.0); NEUTROPHILS % 73.5 % (40.0-76.0); PLATELET 179 x1000/uL (130-400); RED BLOOD CELL COUNT 3.92 mill/uL (4.7-6.1); RED CELL DISTRIBUTION WIDTH 17.7 % (11.6-14.6)
[2021-03-22 23:12] LABS: CHLORIDE 110 mEq/L (98-107)
[2021-03-22 23:14] LABS: INR 1.1; PROTHROMBIN TIME 11.4 sec (9.6-11.0)
[2021-03-22 23:16] LABS: ETHANOL BLOOD < 10 mg/dL
[2021-03-22] MEDS ORDERED: MORPHINE SULFATE 2 MG/ML CPJ (NOT FOR IM USE) IV ONE (23:30)
[2021-03-22] MEDS ORDERED: KETOROLAC 15MG/ML VIAL IV ONE (23:30)
[2021-03-23 00:25] LABS: CLARITY URINE CLEAR (CLEAR); COLOR URINE YELLOW (YELLOW); KETONES URINE NEGATIVE (NEGATIVE); LEUKOCYTE ESTERASE URINE NEGATIVE (NEGATIVE); NITRITE URINE NEGATIVE (NEGATIVE); OCCULT BLOOD URINE NEGATIVE (NEGATIVE); PH URINE 5.5 (4.5-8.0); PROTEIN URINE 1+ (NEGATIVE); SPECIFIC GRAVITY URINE 1.014 (1.005-1.030)
[2021-03-23 00:39] LABS: *AMPHETAMINES SCREEN URINE NEGATIVE (NEGATIVE); CANNABINOID URINE SCREEN NEGATIVE (NEGATIVE); PHENCYCLIDINE URINE SCREEN NEGATIVE (NEGATIVE)
[2021-03-23 00:40] LABS: *BARBITURATES SCREEN URINE NEGATIVE (NEGATIVE); *BENZODIAZEPINES SCREEN URINE NEGATIVE (NEGATIVE); *COCAINE SCREEN URINE NEGATIVE (NEGATIVE); METHADONE URINE SCREEN NEGATIVE (NEGATIVE); OPIATES URINE SCREEN NEGATIVE (NEGATIVE)
[2021-03-23] MEDS ORDERED: ASPIRIN 81MG TABLET PO ONE (01:00)
[2021-03-23] MEDS ORDERED: FUROSEMIDE 40MG/4ML VIAL IV ONE (01:00)
[2021-03-23] MEDS ORDERED: NITROGLYCERIN OINT 1GM/INCH UDPKT TD ONE (01:00)
[2021-03-23] MEDS ORDERED: ACETAMINOPHEN 325MG TABLET PO PRN (13:15)
[2021-03-23] MEDS ORDERED: MAGNESIUM/ALUMINUM HYDROXIDE/SIMETHICONE 30ML UDC PO PRN (13:15)
[2021-03-23] MEDS ORDERED: ONDANSETRON HCL 4MG/2ML INJ IV PRN (13:15)
[2021-03-23] MEDS ORDERED: NALOXONE HCL 0.4MG/ML VIAL IV PRN (13:45)
[2021-03-23] MEDS ORDERED: ENOXAPARIN 30MG/0.3ML SYR SUBCUT SCH (13:47)
[2021-03-23] MEDS ORDERED: ASPIRIN 81MG EC TABLET PO NR (14:00)
[2021-03-23] MEDS ORDERED: FUROSEMIDE 40MG/4ML VIAL IVP SCH (14:00)
[2021-03-23] MEDS: HYDROCODONE/ACETAMINOPHEN 5/325MG TABLET PO PRN (14:17)
[2021-03-23 15:00] VITALS: BP 183/113
[2021-03-23] MEDS: ASPIRIN 81MG EC TABLET PO SCH (15:37)
[2021-03-23] MEDS: FUROSEMIDE 40MG/4ML VIAL IVP SCH ×2 (15:37→21:13)
[2021-03-23] MEDS: CLONIDINE 0.1MG TABLET PO PRN (15:38)
[2021-03-23] MEDS: ENOXAPARIN 150MG/ML SYR SUBCUT SCH (15:40)
[2021-03-23 16:00] VITALS: BP 153/83
[2021-03-23 16:02] LABS: HEMATOCRIT. 37.7 % (42.0-52.0); MEAN CORPUSCULAR HEMOGLOBIN 29.1 pg (28.0-32.0); MEAN CORPUSCULAR VOLUME 91.2 fL (80.0-94.0); MEAN PLATELET VOLUME 8.1 fl (7.4-10.4); PLATELET 191 x1000/uL (130-400); RED BLOOD CELL COUNT 4.13 mill/uL (4.7-6.1); RED CELL DISTRIBUTION WIDTH 18.2 % (11.6-14.6)
[2021-03-23 16:10] LABS: CHLORIDE 109 mEq/L (98-107)
[2021-03-23 20:00] VITALS: BP 139/82
[2021-03-23 20:17] LABS: PLATELET ESTIMATE NORMAL
[2021-03-23] MEDS: ATORVASTATIN CALCIUM 40MG TABLET PO SCH (21:12)
[2021-03-23] MEDS: CARVEDILOL 6.25 MG TABLET PO SCH (21:13)
[2021-03-24] VITALS (7 sets, daily range): BP systolic 107–177; BP diastolic 63–105
[2021-03-24] MEDS: HYDROCODONE/ACETAMINOPHEN 5/325MG TABLET PO PRN (01:23)
[2021-03-24] MEDS: ENOXAPARIN 150MG/ML SYR SUBCUT SCH (04:39)
[2021-03-24] MEDS: OMEPRAZOLE 20MG CAPSULE EXTENDED RELEASE PO SCH (06:48)
[2021-03-24 07:47] LABS: CHLORIDE 107 mEq/L (98-107)
[2021-03-24 08:13] LABS: PHOSPHORUS 3.1 mg/dL (2.5-4.9)
[2021-03-24 08:14] LABS: LDL CHOLESTEROL 63 mg/dL (5-100)
[2021-03-24 08:17] LABS: T4 FREE 1.37 ng/dL (0.76-1.46)
[2021-03-24 08:19] LABS: HDL CHOLESTEROL 40 mg/dL (40-59)
[2021-03-24 08:20] LABS: HEMATOCRIT. 38.5 % (42.0-52.0); HEMOGLOBIN. 12.2 g/dL (14.0-18.0); MEAN CORPUSCULAR HEMOGLOBIN 29.2 pg (28.0-32.0); MEAN CORPUSCULAR VOLUME 92.3 fL (80.0-94.0); MEAN PLATELET VOLUME 8.8 fl (7.4-10.4); PLATELET 173 x1000/uL (130-400); RED BLOOD CELL COUNT 4.17 mill/uL (4.7-6.1); RED CELL DISTRIBUTION WIDTH 17.9 % (11.6-14.6)
[2021-03-24] MEDS: ASPIRIN 81MG EC TABLET PO SCH (09:26)
[2021-03-24] MEDS: FUROSEMIDE 40MG/4ML VIAL IVP SCH ×2 (09:26→21:06)
[2021-03-24] MEDS: CARVEDILOL 6.25 MG TABLET PO SCH ×2 (09:26→21:06)
[2021-03-24 13:22] LABS: PLATELET ESTIMATE NORMAL
[2021-03-24] MEDS: CLONIDINE 0.1MG TABLET PO PRN (16:27)
[2021-03-24] MEDS: ATORVASTATIN CALCIUM 40MG TABLET PO SCH (21:06)
[2021-03-25] VITALS: BP 158/82
[2021-03-25 02:57] LABS: HEPATITIS B SURFACE ANTIGEN NEGATIVE
[2021-03-25] MEDS: HYDROCODONE/ACETAMINOPHEN 5/325MG TABLET PO PRN (03:49)
[2021-03-25 04:00] VITALS: BP 129/85
[2021-03-25] MEDS: OMEPRAZOLE 20MG CAPSULE EXTENDED RELEASE PO SCH (06:29)
[2021-03-25 07:37] LABS: HEMATOCRIT. 38.7 % (42.0-52.0); HEMOGLOBIN. 12.2 g/dL (14.0-18.0); MEAN CORPUSCULAR HEMOGLOBIN 28.4 pg (28.0-32.0); MEAN CORPUSCULAR VOLUME 89.8 fL (80.0-94.0); MEAN PLATELET VOLUME 8.4 fl (7.4-10.4); PLATELET 164 x1000/uL (130-400); RED CELL DISTRIBUTION WIDTH 17.9 % (11.6-14.6)
[2021-03-25 08:00] VITALS: BP 130/79
[2021-03-25] MEDS: ASPIRIN 81MG EC TABLET PO SCH (08:13)
[2021-03-25] MEDS: FUROSEMIDE 40MG/4ML VIAL IVP SCH ×2 (08:14→20:51)
[2021-03-25] MEDS: CARVEDILOL 6.25 MG TABLET PO SCH ×2 (08:14→20:51)
[2021-03-25] MEDS: ENOXAPARIN 40MG/0.4ML SYR SUBCUT SCH ×2 (08:15→20:52)
[2021-03-25] MEDS: MORPHINE SULFATE 2 MG/ML CPJ (NOT FOR IM USE) IV PRN ×3 (09:53→20:53)
[2021-03-25 11:00] LABS: NUCLEATED RED BLOOD CELLS 1 /100 WBC
[2021-03-25 11:01] LABS: PLATELET ESTIMATE NORMAL
[2021-03-25 12:00] VITALS: BP 121/76
[2021-03-25 16:00] VITALS: BP 125/59
[2021-03-25 20:00] VITALS: BP 125/83
[2021-03-25] MEDS: ATORVASTATIN CALCIUM 40MG TABLET PO SCH (20:51)
[2021-03-26] VITALS: BP 133/86
[2021-03-26] MEDS: MORPHINE SULFATE 2 MG/ML CPJ (NOT FOR IM USE) IV PRN ×3 (00:49→17:38)
[2021-03-26 04:00] VITALS: BP 149/86
[2021-03-26] MEDS: OMEPRAZOLE 20MG CAPSULE EXTENDED RELEASE PO SCH (06:48)
[2021-03-26 08:00] VITALS: BP 112/86
[2021-03-26] MEDS: FUROSEMIDE 40MG/4ML VIAL IVP SCH ×2 (08:35→21:02)
[2021-03-26] MEDS: CARVEDILOL 6.25 MG TABLET PO SCH ×2 (08:36→21:02)
[2021-03-26] MEDS: ENOXAPARIN 40MG/0.4ML SYR SUBCUT SCH ×2 (08:36→21:02)
[2021-03-26] MEDS: ASPIRIN 81MG EC TABLET PO SCH (08:36)
[2021-03-26 11:03] LABS: HEMATOCRIT. 44.2 % (42.0-52.0); HEMOGLOBIN. 14.1 g/dL (14.0-18.0); MEAN CORPUSCULAR HEMOGLOBIN 29.1 pg (28.0-32.0); MEAN PLATELET VOLUME 8.5 fl (7.4-10.4); PLATELET 234 x1000/uL (130-400); RED BLOOD CELL COUNT 4.86 mill/uL (4.7-6.1); RED CELL DISTRIBUTION WIDTH 18.2 % (11.6-14.6)
[2021-03-26 13:06] LABS: ANTI-NUCLEAR ANTIBODIES DIRECT Negative (Negative)
[2021-03-26 14:56] LABS: NUCLEATED RED BLOOD CELLS 1 /100 WBC; PLATELET ESTIMATE NORMAL
[2021-03-26 16:00] VITALS: BP 130/82
[2021-03-26 20:00] VITALS: BP 115/87
[2021-03-26] MEDS: ATORVASTATIN CALCIUM 40MG TABLET PO SCH (21:02)
[2021-03-27] VITALS: BP 127/66
[2021-03-27 04:00] VITALS: BP 117/69
[2021-03-27] MEDS: OMEPRAZOLE 20MG CAPSULE EXTENDED RELEASE PO SCH (06:16)
[2021-03-27 08:00] VITALS: BP 119/60
[2021-03-27] MEDS ORDERED: LOSARTAN POTASSIUM 25 MG TABLET PO SCH (09:00)
[2021-03-27] MEDS: FUROSEMIDE 40MG/4ML VIAL IVP SCH (09:18)
[2021-03-27] MEDS: ENOXAPARIN 40MG/0.4ML SYR SUBCUT SCH (09:18)
[2021-03-27] MEDS: CARVEDILOL 6.25 MG TABLET PO SCH (09:19)
[2021-03-27] MEDS: ASPIRIN 81MG EC TABLET PO SCH (09:19)
[2021-03-27] MEDS ORDERED: CLOPIDOGREL 75MG TABLET PO SCH (11:45)
[2021-03-27 12:00] VITALS: BP 138/83
[2021-03-27 15:04] VITALS: BP 138/83
[2021-03-27 16:30] LABS: HEMATOCRIT. 50.1 % (42.0-52.0); HEMOGLOBIN. 16.3 g/dL (14.0-18.0); MEAN CORPUSCULAR HEMOGLOBIN 29.9 pg (28.0-32.0); MEAN CORPUSCULAR VOLUME 91.8 fL (80.0-94.0); MEAN PLATELET VOLUME 8.3 fl (7.4-10.4); PLATELET 213 x1000/uL (130-400); RED BLOOD CELL COUNT 5.45 mill/uL (4.7-6.1); RED CELL DISTRIBUTION WIDTH 18.1 % (11.6-14.6)
[2021-03-27 16:51] LABS: CHLORIDE 105 mEq/L (98-107)
[2021-03-27 17:12] LABS: PLATELET ESTIMATE NORMAL
[2021-03-28] MEDS ORDERED: APIXABAN 5 MG TABLET PO SCH (09:00)
== END 2021-03-27 20:10 | disposition home or self-care (01) | DRG 469 ==
LOC: ER 22:06 → 8WST 03-23 02:17 → ENRESERV 03-23 14:18
PROVIDERS: ADMIT Internal Medicine; ATTEND Internal Medicine
DX: N17.9 Acute kidney failure, unspecified (principal); I50.23 Acute on chronic systolic (congestive) heart failure; I42.8 Other cardiomyopathies; Z68.43 Body mass index [BMI] 50.0-59.9, adult; E11.22 Type 2 diabetes mellitus with diabetic chronic kidney disease; I48.0 Paroxysmal atrial fibrillation; E80.6 Other disorders of bilirubin metabolism; G43.909 Migraine, unspecified, not intractable, without status migrainosus; I13.0 Hypertensive heart and chronic kidney disease with heart failure and stage 1 through stage 4 chronic kidney disease, or unspecified chronic kidney disease; G47.33 Obstructive sleep apnea (adult) (pediatric); E66.01 Morbid (severe) obesity due to excess calories; R07.89 Other chest pain; I25.10 Atherosclerotic heart disease of native coronary artery without angina pectoris; Z20.822 Contact with and (suspected) exposure to COVID-19; J44.9 Chronic obstructive pulmonary disease, unspecified; N18.9 Chronic kidney disease, unspecified; Z87.891 Personal history of nicotine dependence; Z91.19 Patient's noncompliance with other medical treatment and regimen; Z95.5 Presence of coronary angioplasty implant and graft; Z86.73 Personal history of transient ischemic attack (TIA), and cerebral infarction without residual deficits; Z79.01 Long term (current) use of anticoagulants; Z79.899 Other long term (current) drug therapy; Z79.82 Long term (current) use of aspirin; I25.2 Old myocardial infarction; Z71.3 Dietary counseling and surveillance
CPT/HCPCS: 36415; 71045; 74176; 76604; 76700; 80048; 80053; 80061; 80076; 80305; 80320; 81003; 83605; 83735; 83880; 84100; 84439; 84443; 84484; 85025; 86038; 86160; 86705; 86709; 86803; 87340; 87426; 93005; 93306; 93970; 99291; C1893; J1650; J1940; J2270; G0480

== ENCOUNTER 2021-06-10 04:13 | Inpatient (IN) | payer OTHER ==
[~2021-06-10] VITALS: Ht 170.2 cm; Wt 145.6 kg
[~2021-06-10 04:13] MED LIST changes: -ALBU18HF2 IH; +ALBU6.7H9 INH; -AMI2 PO; -APIX5TAB MT; -ASPI-1160 PO; +ASPI-1406 PO; -ATOR20TA PO; +ATOR40TA70 PO; -CARV25TA47 MT; -CLOP-31 MT; -CLOP75TA15 PO; -COR12 PO; +FURO40TA5 PO; -FURO80TA87 MT; -ISOS10TA2 PO; -LIP40 PO; +LISI2.5T47 PO; -LOSA50TA41 MT; -METO2.5T2 MT; +METO25TA6 PO; -PANT40TA51 MT; +SERT25TA74 PO; +SPIR25TA6 PO
[2021-06-10] MEDS ORDERED: ONDANSETRON HCL 4MG/2ML INJ IV STA (05:30)
[2021-06-10 10:02] LABS: HEMATOCRIT. 40.8 % (42.0-52.0); HEMOGLOBIN. 12.9 g/dL (14.0-18.0); MEAN CORPUSCULAR HEMOGLOBIN 28.2 pg (28.0-32.0); MEAN CORPUSCULAR VOLUME 89.2 fL (80.0-94.0); MEAN PLATELET VOLUME 7.9 fl (7.4-10.4); PLATELET 253 x1000/uL (130-400); RED BLOOD CELL COUNT 4.57 mill/uL (4.7-6.1); RED CELL DISTRIBUTION WIDTH 19.4 % (11.6-14.6)
[2021-06-10 10:05] LABS: CHLORIDE 108 mEq/L (98-107)
[2021-06-10 11:24] LABS: PLATELET ESTIMATE NORMAL
[2021-06-10 12:35] LABS: CLARITY URINE CLEAR (CLEAR); COLOR URINE DARK YELLOW (YELLOW); KETONES URINE NEGATIVE (NEGATIVE); LEUKOCYTE ESTERASE URINE NEGATIVE (NEGATIVE); NITRITE URINE NEGATIVE (NEGATIVE); OCCULT BLOOD URINE 2+ (NEGATIVE); PROTEIN URINE 3+ (NEGATIVE); SPECIFIC GRAVITY URINE 1.017 (1.005-1.030)
[2021-06-10] MEDS ORDERED: CALCIUM CHLORIDE 1GM/10ML SYR IV ONE (13:45)
[2021-06-10] MEDS ORDERED: FUROSEMIDE 20MG/2ML VIAL IVP ONE (13:45)
[2021-06-10 14:27] LABS: CHLORIDE 111 mEq/L (98-107)
[2021-06-10] MEDS ORDERED: ONDANSETRON HCL 4MG/2ML INJ IV PRN (16:00)
[2021-06-10] MEDS ORDERED: IPRATROPIUM/ALBUTEROL 0.5-3(2.5)MG/3ML NEB HHN PRN (16:00)
[2021-06-10] MEDS ORDERED: LORAZEPAM 0.5MG TABLET PO PRN (16:00)
[2021-06-10] MEDS ORDERED: CLONIDINE 0.1MG TABLET PO PRN (16:00)
[2021-06-10] MEDS ORDERED: ACETAMINOPHEN 325MG TABLET PO PRN ×2 (16:00)
[2021-06-10] MEDS ORDERED: DOCUSATE SODIUM 100MG CAPSULE PO PRN (16:00)
[2021-06-10] MEDS: FUROSEMIDE 40MG/4ML VIAL IVP SCH (16:05)
[2021-06-10] MEDS: NITROGLYCERIN OINT 1GM/INCH UDPKT TD SCH ×2 (16:05→22:26)
[2021-06-10 17:27] LABS: BG BASE EXCESS -2.3 mmol/L (-2.0-2.0); BG CARBOXYHEMOGLOBIN 1.2 % (0.5-1.5); BG DEOXYHEMOGLOBIN 2.4 % (0.0-5.0); BG FRACTION INSPIRED OXYGEN 50; BG METHEMOGLOBIN 0.3 % (0.0-1.5); BG OXYGEN SATURATION 97.6 % (92.0-98.5); BG OXYHEMOGLOBIN 96.1 % (94.0-97.0); BG PCO2 36.1 mmHg (35.0-45.0); BG PH 7.402 (7.350-7.450); BG PO2 106.3 mmHg (75.0-100.0); BG SAMPLE SITE LEFT RADIAL; BG TOTAL HEMOGLOBIN 12.2 g/dL (12.0-18.0); BG TOTAL RESPIRATORY RATE 39 b/min; BG VENT MODE MASK - BIPAP
[2021-06-10 22:00] VITALS: BP 133/91
[2021-06-10] MEDS: METOPROLOL TARTRATE 25MG TABLET PO SCH (22:26)
[2021-06-10] MEDS: ATORVASTATIN CALCIUM 40MG TABLET PO SCH (22:26)
[2021-06-10 22:32] VITALS: BP 133/91
[2021-06-11] VITALS (11 sets, daily range): BP systolic 119–150; BP diastolic 75–94
[2021-06-11] MEDS: IPRATROPIUM/ALBUTEROL 0.5-3(2.5)MG/3ML NEB HHN SCH ×3 (00:11→13:12)
[2021-06-11] MEDS: HYDROCODONE/ACETAMINOPHEN 5/325MG TABLET PO PRN ×4 (01:08→21:28)
[2021-06-11] MEDS: NITROGLYCERIN OINT 1GM/INCH UDPKT TD SCH ×3 (05:50→21:28)
[2021-06-11 06:34] LABS: HEMATOCRIT. 34.6 % (42.0-52.0); HEMOGLOBIN. 11.2 g/dL (14.0-18.0); MEAN CORPUSCULAR HEMOGLOBIN 29.2 pg (28.0-32.0); MEAN CORPUSCULAR VOLUME 90.2 fL (80.0-94.0); MEAN PLATELET VOLUME 8.4 fl (7.4-10.4); PLATELET 234 x1000/uL (130-400); RED BLOOD CELL COUNT 3.84 mill/uL (4.7-6.1); RED CELL DISTRIBUTION WIDTH 19.1 % (11.6-14.6)
[2021-06-11] MEDS: FUROSEMIDE 40MG/4ML VIAL IVP SCH ×2 (08:24→16:55)
[2021-06-11] MEDS: ASPIRIN 81MG EC TABLET PO SCH (08:25)
[2021-06-11] MEDS: METOPROLOL TARTRATE 25MG TABLET PO SCH (08:25)
[2021-06-11] MEDS: SERTRALINE HCL 25MG TABLET PO SCH (08:25)
[2021-06-11] MEDS ORDERED: NALOXONE HCL 0.4MG/ML VIAL IV PRN (11:45)
[2021-06-11 14:34] LABS: *AMPHETAMINES SCREEN URINE NEGATIVE (NEGATIVE); *BARBITURATES SCREEN URINE NEGATIVE (NEGATIVE); *BENZODIAZEPINES SCREEN URINE NEGATIVE (NEGATIVE); *COCAINE SCREEN URINE NEGATIVE (NEGATIVE); METHADONE URINE SCREEN NEGATIVE (NEGATIVE); OPIATES URINE SCREEN NEGATIVE (NEGATIVE)
[2021-06-11 14:35] LABS: CANNABINOID URINE SCREEN NEGATIVE (NEGATIVE)
[2021-06-11 14:38] LABS: PHENCYCLIDINE URINE SCREEN NEGATIVE (NEGATIVE)
[2021-06-11] MEDS: APIXABAN 5 MG TABLET PO SCH ×2 (14:38→16:54)
[2021-06-11 20:36] LABS: PLATELET ESTIMATE NORMAL
[2021-06-11] MEDS ORDERED: CARVEDILOL 6.25 MG TABLET PO SCH (21:00)
[2021-06-11] MEDS: ATORVASTATIN CALCIUM 40MG TABLET PO SCH (21:28)
[2021-06-12] VITALS: BP 119/64
[2021-06-12 04:00] VITALS: BP 133/89
[2021-06-12] MEDS: NITROGLYCERIN OINT 1GM/INCH UDPKT TD SCH ×3 (06:04→20:58)
[2021-06-12 06:59] LABS: EOSINOPHILS % 2.9 % (0.0-5.0); HEMATOCRIT. 33.3 % (42.0-52.0); HEMOGLOBIN. 10.7 g/dL (14.0-18.0); LYMPHOCYTES % 18.4 % (20.0-50.0); MEAN CORPUSCULAR HEMOGLOBIN 28.8 pg (28.0-32.0); MEAN CORPUSCULAR VOLUME 89.5 fL (80.0-94.0); MEAN PLATELET VOLUME 8.1 fl (7.4-10.4); MONOCYTES % 13.7 % (2.0-8.0); PLATELET 232 x1000/uL (130-400); RED BLOOD CELL COUNT 3.72 mill/uL (4.7-6.1); RED CELL DISTRIBUTION WIDTH 19.7 % (11.6-14.6)
[2021-06-12] MEDS: FUROSEMIDE 40MG/4ML VIAL IVP SCH ×2 (07:15→16:22)
[2021-06-12 08:00] VITALS: BP 128/78
[2021-06-12] MEDS: APIXABAN 5 MG TABLET PO SCH ×2 (09:08→16:22)
[2021-06-12] MEDS: SERTRALINE HCL 25MG TABLET PO SCH (09:08)
[2021-06-12] MEDS: CARVEDILOL 12.5MG TABLET PO SCH ×2 (09:08→20:58)
[2021-06-12] MEDS: ASPIRIN 81MG EC TABLET PO SCH (09:08)
[2021-06-12] MEDS: IPRATROPIUM/ALBUTEROL 0.5-3(2.5)MG/3ML NEB HHN SCH ×3 (10:00→21:31)
[2021-06-12] MEDS ORDERED: TRAMADOL 50MG TABLET PO PRN (11:00)
[2021-06-12 12:00] VITALS: BP 121/68
[2021-06-12 16:00] VITALS: BP 119/72
[2021-06-12 20:00] VITALS: BP 125/87
[2021-06-12] MEDS: ATORVASTATIN CALCIUM 40MG TABLET PO SCH (20:55)
[2021-06-13] VITALS: BP 119/78
[2021-06-13] MEDS: IPRATROPIUM/ALBUTEROL 0.5-3(2.5)MG/3ML NEB HHN SCH ×4 (01:29→20:46)
[2021-06-13 04:00] VITALS: BP 132/63
[2021-06-13] MEDS: NITROGLYCERIN OINT 1GM/INCH UDPKT TD SCH ×3 (05:44→20:54)
[2021-06-13 05:51] LABS: BASOPHILS % 1.2 % (0.0-2.0); HEMATOCRIT. 32.7 % (42.0-52.0); HEMOGLOBIN. 10.5 g/dL (14.0-18.0); LYMPHOCYTES % 16.9 % (20.0-50.0); MEAN CORPUSCULAR HEMOGLOBIN 28.7 pg (28.0-32.0); MEAN CORPUSCULAR VOLUME 89.6 fL (80.0-94.0); MEAN PLATELET VOLUME 8.1 fl (7.4-10.4); MONOCYTES % 14.7 % (2.0-8.0); NEUTROPHILS % 63.2 % (40.0-76.0); PLATELET 219 x1000/uL (130-400); RED BLOOD CELL COUNT 3.65 mill/uL (4.7-6.1)
[2021-06-13 05:55] LABS: HEPATITIS B SURFACE ANTIGEN NEGATIVE
[2021-06-13] MEDS: HYDROCODONE/ACETAMINOPHEN 10/325MG TABLET PO PRN ×3 (05:55→18:50)
[2021-06-13] MEDS: FUROSEMIDE 40MG/4ML VIAL IVP SCH ×2 (07:15→17:03)
[2021-06-13 08:00] VITALS: BP 141/58
[2021-06-13] MEDS: ASPIRIN 81MG EC TABLET PO SCH (09:00)
[2021-06-13] MEDS: APIXABAN 5 MG TABLET PO SCH ×2 (09:00→17:03)
[2021-06-13] MEDS: SERTRALINE HCL 25MG TABLET PO SCH (09:00)
[2021-06-13] MEDS: CARVEDILOL 12.5MG TABLET PO SCH ×2 (09:00→20:54)
[2021-06-13 12:00] VITALS: BP 132/62
[2021-06-13] MEDS ORDERED: COR12 PO (14:57)
[2021-06-13] MEDS ORDERED: APIX5TAB PO (14:57)
[2021-06-13 16:00] VITALS: BP 124/58
[2021-06-13 20:00] VITALS: BP 108/66
[2021-06-13] MEDS: ATORVASTATIN CALCIUM 40MG TABLET PO SCH (20:54)
[2021-06-14] VITALS: BP 91/68
[2021-06-14] MEDS: IPRATROPIUM/ALBUTEROL 0.5-3(2.5)MG/3ML NEB HHN SCH ×4 (00:58→20:02)
[2021-06-14 04:00] VITALS: BP 114/62
[2021-06-14] MEDS: NITROGLYCERIN OINT 1GM/INCH UDPKT TD SCH ×3 (05:39→22:00)
[2021-06-14 07:38] VITALS: BP 135/85
[2021-06-14] MEDS: APIXABAN 5 MG TABLET PO SCH ×2 (08:37→17:13)
[2021-06-14] MEDS: ASPIRIN 81MG EC TABLET PO SCH (08:37)
[2021-06-14] MEDS: FUROSEMIDE 40MG/4ML VIAL IVP SCH ×2 (08:38→17:14)
[2021-06-14] MEDS: CARVEDILOL 12.5MG TABLET PO SCH ×2 (08:38→21:25)
[2021-06-14] MEDS: SERTRALINE HCL 25MG TABLET PO SCH (08:41)
[2021-06-14] MEDS: HYDROCODONE/ACETAMINOPHEN 10/325MG TABLET PO PRN (13:03)
[2021-06-14 15:20] VITALS: BP 144/68
[2021-06-14 20:00] VITALS: BP 109/61
[2021-06-14] MEDS: ATORVASTATIN CALCIUM 40MG TABLET PO SCH (21:26)
== END 2021-06-15 00:36 | disposition home or self-care (01) | DRG 194 ==
LOC: ER 04:13 → 5EST 12:54 → EDBEDREQSVC 13:04 → EDBEDREQ 13:04 → EDBEDREQSVC 17:12 → ENRESERV 18:09
PROVIDERS: ADMIT Internal Medicine; ATTEND Internal Medicine
PROC: 5A09357 Assistance with Respiratory Ventilation, Less than 24 Consecutive Hours, Continuous Positive Airway Pressure (ICD-10-PCS; principal; 2021-06-10)
DX: I13.0 Hypertensive heart and chronic kidney disease with heart failure and stage 1 through stage 4 chronic kidney disease, or unspecified chronic kidney disease (principal); J96.01 Acute respiratory failure with hypoxia; N17.9 Acute kidney failure, unspecified; E44.1 Mild protein-calorie malnutrition; E66.2 Morbid (severe) obesity with alveolar hypoventilation; R16.2 Hepatomegaly with splenomegaly, not elsewhere classified; Z68.43 Body mass index [BMI] 50.0-59.9, adult; I48.0 Paroxysmal atrial fibrillation; G43.909 Migraine, unspecified, not intractable, without status migrainosus; K42.9 Umbilical hernia without obstruction or gangrene; I42.0 Dilated cardiomyopathy; D64.9 Anemia, unspecified; D72.825 Bandemia; E78.5 Hyperlipidemia, unspecified; E87.5 Hyperkalemia; I25.10 Atherosclerotic heart disease of native coronary artery without angina pectoris; J44.9 Chronic obstructive pulmonary disease, unspecified; K59.00 Constipation, unspecified; R74.01 Elevation of levels of liver transaminase levels; M25.78 Osteophyte, vertebrae; N18.9 Chronic kidney disease, unspecified; I50.23 Acute on chronic systolic (congestive) heart failure; M48.07 Spinal stenosis, lumbosacral region; N28.1 Cyst of kidney, acquired; R16.1 Splenomegaly, not elsewhere classified; Z20.822 Contact with and (suspected) exposure to COVID-19; Z91.19 Patient's noncompliance with other medical treatment and regimen; Z95.5 Presence of coronary angioplasty implant and graft; Z79.82 Long term (current) use of aspirin; Z79.899 Other long term (current) drug therapy; I25.2 Old myocardial infarction; Z71.3 Dietary counseling and surveillance; Z87.891 Personal history of nicotine dependence; Z86.73 Personal history of transient ischemic attack (TIA), and cerebral infarction without residual deficits; Z83.3 Family history of diabetes mellitus; Z82.49 Family history of ischemic heart disease and other diseases of the circulatory system; E66.01 Morbid (severe) obesity due to excess calories
CPT/HCPCS: 36415; 36600; 71045; 74176; 76700; 78580; 80048; 80053; 80305; 81003; 82375; 82805; 83735; 83880; 84484; 85025; 85379; 86705; 86709; 86803; 87340; 87426; 93005; 94640; 94660; 99285; J1940; J3490; A4315

== ENCOUNTER 2021-10-20 11:21 | Inpatient (IN) | payer MEDICAID, OTHER ==
[~2021-10-20] VITALS: Ht 170.2 cm; Wt 147.7 kg
[~2021-10-20 11:21] MED LIST changes: +APIX5TAB PO; +COR12 PO; -LISI2.5T47 PO; -METO25TA6 PO; -SPIR25TA6 PO
[2021-10-20] MEDS ORDERED: FUROSEMIDE 40MG/4ML VIAL IV ONE (11:45)
[2021-10-20 12:32] LABS: EOSINOPHILS % 4.1 % (0.0-5.0); HEMATOCRIT. 40.2 % (42.0-52.0); HEMOGLOBIN. 13.2 g/dL (14.0-18.0); LYMPHOCYTES % 16.4 % (20.0-50.0); MEAN CORPUSCULAR HEMOGLOBIN 28.2 pg (28.0-32.0); MEAN CORPUSCULAR VOLUME 86.2 fL (80.0-94.0); MEAN PLATELET VOLUME 7.3 fl (7.4-10.4); MONOCYTES % 13.2 % (2.0-8.0); NEUTROPHILS % 65.3 % (40.0-76.0); PLATELET 196 x1000/uL (130-400); RED BLOOD CELL COUNT 4.67 mill/uL (4.7-6.1); RED CELL DISTRIBUTION WIDTH 20.5 % (11.6-14.6)
[2021-10-20 12:37] LABS: CHLORIDE 109 mEq/L (98-107)
[2021-10-20 18:00] VITALS: BP 139/98
[2021-10-20] MEDS ORDERED: DIPHENHYDRAMINE 50MG/ML VIAL IV PRN (18:45)
[2021-10-20] MEDS ORDERED: IPRATROPIUM/ALBUTEROL 0.5-3(2.5)MG/3ML NEB HHN PRN (18:45)
[2021-10-20] MEDS ORDERED: CLONIDINE 0.1MG TABLET PO PRN (18:45)
[2021-10-20] MEDS ORDERED: ACETAMINOPHEN 325MG TABLET PO PRN (18:45)
[2021-10-20] MEDS ORDERED: ONDANSETRON HCL 4MG/2ML INJ IV PRN (18:45)
[2021-10-20] MEDS ORDERED: NALOXONE HCL 0.4MG/ML VIAL IV PRN (19:00)
[2021-10-20 20:00] VITALS: BP 174/78
[2021-10-20] MEDS: HYDROCODONE/ACETAMINOPHEN 5/325MG TABLET PO PRN (20:20)
[2021-10-21] VITALS (7 sets, daily range): BP systolic 131–166; BP diastolic 77–131
[2021-10-21] MEDS: HYDROCODONE/ACETAMINOPHEN 5/325MG TABLET PO PRN ×3 (05:08→19:28)
[2021-10-21 05:57] LABS: CHLORIDE 109 mEq/L (98-107)
[2021-10-21 06:18] LABS: HEMATOCRIT. 36.2 % (42.0-52.0); HEMOGLOBIN. 11.8 g/dL (14.0-18.0); MEAN CORPUSCULAR HEMOGLOBIN 28.2 pg (28.0-32.0); MEAN CORPUSCULAR VOLUME 86.5 fL (80.0-94.0); MEAN PLATELET VOLUME 8.1 fl (7.4-10.4); PLATELET 177 x1000/uL (130-400); RED BLOOD CELL COUNT 4.19 mill/uL (4.7-6.1); RED CELL DISTRIBUTION WIDTH 20.1 % (11.6-14.6)
[2021-10-21] MEDS: FUROSEMIDE 40MG/4ML VIAL IV SCH ×2 (09:04→18:19)
[2021-10-21 10:35] LABS: PLATELET ESTIMATE NORMAL
[2021-10-21] MEDS ORDERED: LIDOCAINE HCL/PF 1% 10 MG/ML 5ML VIAL ONE (11:00)
[2021-10-21] MEDS: ASPIRIN 81MG TABLET PO SCH (12:56)
[2021-10-21] MEDS: ENOXAPARIN 150MG/ML SYR SUBCUT SCH (12:57)
[2021-10-21 17:29] LABS: INR 1.1
[2021-10-21] MEDS: CARVEDILOL 6.25 MG TABLET PO SCH (20:58)
[2021-10-21] MEDS: ATORVASTATIN CALCIUM 40MG TABLET PO SCH (20:58)
[2021-10-22] VITALS: BP 126/96
[2021-10-22] MEDS: ENOXAPARIN 150MG/ML SYR SUBCUT SCH ×2 (00:41→12:30)
[2021-10-22] MEDS: HYDROCODONE/ACETAMINOPHEN 5/325MG TABLET PO PRN ×2 (00:41→04:27)
[2021-10-22 04:00] VITALS: BP 146/89
[2021-10-22 07:33] VITALS: BP 115/80
[2021-10-22 07:35] LABS: *AMPHETAMINES SCREEN URINE NEGATIVE (NEGATIVE); *BARBITURATES SCREEN URINE NEGATIVE (NEGATIVE); *BENZODIAZEPINES SCREEN URINE NEGATIVE (NEGATIVE); *COCAINE SCREEN URINE NEGATIVE (NEGATIVE); CANNABINOID URINE SCREEN NEGATIVE (NEGATIVE); METHADONE URINE SCREEN NEGATIVE (NEGATIVE); OPIATES URINE SCREEN PRESUMTIVE POSITIVE (NEGATIVE); PHENCYCLIDINE URINE SCREEN NEGATIVE (NEGATIVE)
[2021-10-22] MEDS: CARVEDILOL 6.25 MG TABLET PO SCH ×2 (09:12→21:26)
[2021-10-22] MEDS: FUROSEMIDE 40MG/4ML VIAL IV SCH ×2 (09:12→17:18)
[2021-10-22] MEDS: ASPIRIN 81MG TABLET PO SCH (09:15)
[2021-10-22 12:00] VITALS: BP 138/88
[2021-10-22] MEDS ORDERED: MAGNESIUM 2 G PREMIX 50 ML IV NR (12:00)
[2021-10-22 16:03] VITALS: BP 133/66
[2021-10-22 17:55] LABS: EOSINOPHILS % 11.9 % (0.0-5.0); HEMATOCRIT. 37.1 % (42.0-52.0); HEMOGLOBIN. 11.9 g/dL (14.0-18.0); LYMPHOCYTES % 18.9 % (20.0-50.0); MEAN CORPUSCULAR HEMOGLOBIN 28.1 pg (28.0-32.0); MEAN CORPUSCULAR VOLUME 87.5 fL (80.0-94.0); MONOCYTES % 14.9 % (2.0-8.0); NEUTROPHILS % 53.3 % (40.0-76.0); PLATELET 188 x1000/uL (130-400); RED BLOOD CELL COUNT 4.25 mill/uL (4.7-6.1); RED CELL DISTRIBUTION WIDTH 20.8 % (11.6-14.6)
[2021-10-22 20:00] VITALS: BP 142/96
[2021-10-22] MEDS: ATORVASTATIN CALCIUM 40MG TABLET PO SCH (21:26)
[2021-10-22] MEDS: TRAZODONE HCL 50MG TABLET PO SCH (21:26)
[2021-10-23] VITALS: BP 140/98
[2021-10-23] MEDS: ENOXAPARIN 150MG/ML SYR SUBCUT SCH ×2 (00:10→12:09)
[2021-10-23] MEDS: HYDROCODONE/ACETAMINOPHEN 5/325MG TABLET PO PRN ×3 (02:14→20:21)
[2021-10-23 04:00] VITALS: BP 106/64
[2021-10-23 08:00] VITALS: BP 124/50
[2021-10-23] MEDS: FUROSEMIDE 40MG/4ML VIAL IV SCH ×2 (08:52→16:42)
[2021-10-23] MEDS: ASPIRIN 81MG TABLET PO SCH (08:52)
[2021-10-23] MEDS: CARVEDILOL 6.25 MG TABLET PO SCH ×2 (08:53→20:22)
[2021-10-23 09:53] LABS: CHLORIDE 106 mEq/L (98-107)
[2021-10-23 12:00] VITALS: BP 117/67
[2021-10-23 16:00] VITALS: BP 117/78
[2021-10-23 20:00] VITALS: BP 117/67
[2021-10-23] MEDS: ATORVASTATIN CALCIUM 40MG TABLET PO SCH (20:21)
[2021-10-23] MEDS: TRAZODONE HCL 50MG TABLET PO SCH (20:21)
[2021-10-24] VITALS: BP 128/68
[2021-10-24 04:00] VITALS: BP 132/81
[2021-10-24] MEDS: HYDROCODONE/ACETAMINOPHEN 5/325MG TABLET PO PRN (06:38)
[2021-10-24 08:00] VITALS: BP 117/86
[2021-10-24] MEDS: APIXABAN 5 MG TABLET PO SCH ×2 (10:05→17:23)
[2021-10-24] MEDS: ASPIRIN 81MG TABLET PO SCH (10:05)
[2021-10-24] MEDS: CARVEDILOL 12.5MG TABLET PO SCH ×2 (10:05→20:50)
[2021-10-24] MEDS: FUROSEMIDE 40MG/4ML VIAL IV SCH ×2 (10:05→17:23)
[2021-10-24 12:00] VITALS: BP 105/68
[2021-10-24] MEDS ORDERED: POTASSIUM CHLORIDE 20MEQ TABLET SR PO NR (13:00)
[2021-10-24 16:00] VITALS: BP 135/75
[2021-10-24 20:00] VITALS: BP 127/80
[2021-10-24] MEDS: ATORVASTATIN CALCIUM 40MG TABLET PO SCH (20:50)
[2021-10-24] MEDS: TRAZODONE HCL 50MG TABLET PO SCH (20:50)
[2021-10-25] VITALS: BP 100/62
[2021-10-25 04:00] VITALS: BP 147/93
[2021-10-25] MEDS: HYDROCODONE/ACETAMINOPHEN 5/325MG TABLET PO PRN (05:46)
== END 2021-10-25 10:45 | disposition home or self-care (01) | DRG 194 ==
LOC: ER 11:21 → 7WST 15:01 → ENRESERV 16:16
PROVIDERS: ADMIT Internal Medicine; ATTEND Internal Medicine
PROC: 02HV33Z Insertion of Infusion Device into Superior Vena Cava, Percutaneous Approach (ICD-10-PCS; principal; 2021-10-21)
PROC: B548ZZA Ultrasonography of Superior Vena Cava, Guidance (ICD-10-PCS; 2021-10-21)
DX: I13.0 Hypertensive heart and chronic kidney disease with heart failure and stage 1 through stage 4 chronic kidney disease, or unspecified chronic kidney disease (principal); J96.01 Acute respiratory failure with hypoxia; E44.1 Mild protein-calorie malnutrition; G43.909 Migraine, unspecified, not intractable, without status migrainosus; I48.0 Paroxysmal atrial fibrillation; Z68.43 Body mass index [BMI] 50.0-59.9, adult; I50.23 Acute on chronic systolic (congestive) heart failure; N18.9 Chronic kidney disease, unspecified; J44.9 Chronic obstructive pulmonary disease, unspecified; I25.10 Atherosclerotic heart disease of native coronary artery without angina pectoris; E66.01 Morbid (severe) obesity due to excess calories; E83.42 Hypomagnesemia; G47.33 Obstructive sleep apnea (adult) (pediatric); G47.00 Insomnia, unspecified; Z99.81 Dependence on supplemental oxygen; Z79.899 Other long term (current) drug therapy; Z91.19 Patient's noncompliance with other medical treatment and regimen; Z87.891 Personal history of nicotine dependence; Z95.5 Presence of coronary angioplasty implant and graft; I25.2 Old myocardial infarction; Z79.51 Long term (current) use of inhaled steroids
CPT/HCPCS: 36415; 36573; 71045; 76705; 80048; 80053; 80305; 83735; 83880; 84100; 84443; 84484; 85025; 93005; 93306; 93970; 99285; C1725; J1650; J1940; J3475; J3490

== ENCOUNTER 2021-12-12 16:22 | Inpatient (IN) | payer MEDICAID, OTHER ==
[~2021-12-12] VITALS: Ht 170.2 cm; Wt 141.5 kg
[2021-12-12] MEDS ORDERED: FUROSEMIDE 100MG/10ML VIAL IVP ONE (18:45)
[2021-12-12] MEDS ORDERED: HYDRALAZINE 20MG/ML VIAL IV ONE (18:45)
[2021-12-12] MEDS ORDERED: NITROGLYCERIN OINT 1GM/INCH UDPKT TD ONE (18:45)
[2021-12-12] MEDS ORDERED: HYDROCODONE/ACETAMINOPHEN 5/325MG TABLET PO ONE (23:00)
[2021-12-12 23:37] LABS: HEMOGLOBIN. 13.1 g/dL (14.0-18.0); MEAN CORPUSCULAR HEMOGLOBIN 28.3 pg (28.0-32.0); MEAN CORPUSCULAR VOLUME 86.5 fL (80.0-94.0); MEAN PLATELET VOLUME 8.4 fl (7.4-10.4); PLATELET 229 x1000/uL (130-400); RED BLOOD CELL COUNT 4.63 mill/uL (4.7-6.1); RED CELL DISTRIBUTION WIDTH 18.7 % (11.6-14.6)
[2021-12-12 23:47] LABS: CHLORIDE 108 mEq/L (98-107)
[2021-12-13 05:10] VITALS: BP 138/86
[2021-12-13 06:02] LABS: NUCLEATED RED BLOOD CELLS 1 /100 WBC; PLATELET ESTIMATE NORMAL
[2021-12-13] MEDS ORDERED: HYDRALAZINE 20MG/ML VIAL IV PRN (07:45)
[2021-12-13] MEDS ORDERED: CLONIDINE 0.1MG TABLET PO PRN (07:45)
[2021-12-13] MEDS ORDERED: ONDANSETRON HCL 4MG/2ML INJ IV PRN (07:45)
[2021-12-13] MEDS ORDERED: GUAIFENESIN 200MG/10ML SUGAR FREE UDC PO PRN (07:45)
[2021-12-13] MEDS ORDERED: DIPHENHYDRAMINE 50MG/ML VIAL IV PRN (07:45)
[2021-12-13] MEDS ORDERED: ACETAMINOPHEN 325MG TABLET PO PRN (07:45)
[2021-12-13] MEDS ORDERED: DOCUSATE SODIUM 100MG CAPSULE PO PRN (07:45)
[2021-12-13] MEDS ORDERED: IPRATROPIUM/ALBUTEROL 0.5-3(2.5)MG/3ML NEB HHN PRN (07:45)
[2021-12-13] MEDS ORDERED: MAGNESIUM/ALUMINUM HYDROXIDE/SIMETHICONE 30ML UDC PO PRN (07:45)
[2021-12-13 08:00] VITALS: BP 140/77
[2021-12-13] MEDS ORDERED: NALOXONE HCL 0.4MG/ML VIAL IV PRN (08:30)
[2021-12-13] MEDS: MORPHINE SULFATE 2 MG/ML CPJ (NOT FOR IM USE) IV PRN ×2 (08:44→15:32)
[2021-12-13] MEDS ORDERED: ENOXAPARIN 40MG/0.4ML SYR SUBCUT SCH (09:00)
[2021-12-13 12:00] VITALS: BP 116/85
[2021-12-13] MEDS: ASPIRIN 81MG TABLET PO SCH (12:34)
[2021-12-13] MEDS: FUROSEMIDE 40MG/4ML VIAL IVP SCH ×2 (12:34→16:30)
[2021-12-13] MEDS: APIXABAN 5 MG TABLET PO SCH ×2 (12:37→16:30)
[2021-12-13] MEDS: SPIRONOLACTONE 25MG TABLET PO SCH (12:37)
[2021-12-13] MEDS: SODIUM CHLORIDE 0.9% INJ 3ML FLUSH IVF SCH ×2 (14:00→21:14)
[2021-12-13 15:50] LABS: BG BASE EXCESS 1.6 mmol/L (-2.0-2.0); BG CARBOXYHEMOGLOBIN 1.1 % (0.5-1.5); BG DEOXYHEMOGLOBIN 9.3 % (0.0-5.0); BG HCO3 ACT 25.3 mmol/L (22.0-26.0); BG METHEMOGLOBIN 0.1 % (0.0-1.5); BG OXYGEN SATURATION 90.6 % (92.0-98.5); BG OXYHEMOGLOBIN 89.5 % (94.0-97.0); BG PCO2 36.5 mmHg (35.0-45.0); BG PH 7.458 (7.350-7.450); BG SAMPLE SITE RIGHT RADIAL; BG TOTAL HEMOGLOBIN 12.9 g/dL (12.0-18.0); BG VENT MODE NASAL CANNULA
[2021-12-13 16:00] VITALS: BP 113/66
[2021-12-13 20:07] VITALS: BP 140/81
[2021-12-13 22:10] LABS: *AMPHETAMINES SCREEN URINE NEGATIVE (NEGATIVE); *BARBITURATES SCREEN URINE NEGATIVE (NEGATIVE); *BENZODIAZEPINES SCREEN URINE NEGATIVE (NEGATIVE); *COCAINE SCREEN URINE NEGATIVE (NEGATIVE); CANNABINOID URINE SCREEN NEGATIVE (NEGATIVE); METHADONE URINE SCREEN NEGATIVE (NEGATIVE); OPIATES URINE SCREEN PRESUMTIVE POSITIVE (NEGATIVE); PHENCYCLIDINE URINE SCREEN NEGATIVE (NEGATIVE)
[2021-12-13 23:45] VITALS: BP 126/72
[2021-12-14 04:00] VITALS: BP 136/72
[2021-12-14] MEDS: FUROSEMIDE 40MG/4ML VIAL IVP SCH ×2 (06:23→18:03)
[2021-12-14] MEDS: SODIUM CHLORIDE 0.9% INJ 3ML FLUSH IVF SCH ×3 (06:23→22:00)
[2021-12-14 06:45] LABS: HEMATOCRIT. 36.8 % (42.0-52.0); MEAN CORPUSCULAR HEMOGLOBIN 28.3 pg (28.0-32.0); MEAN CORPUSCULAR VOLUME 86.6 fL (80.0-94.0); MEAN PLATELET VOLUME 8.4 fl (7.4-10.4); PLATELET 196 x1000/uL (130-400); RED BLOOD CELL COUNT 4.25 mill/uL (4.7-6.1); RED CELL DISTRIBUTION WIDTH 19.1 % (11.6-14.6)
[2021-12-14 07:06] LABS: CHLORIDE 104 mEq/L (98-107)
[2021-12-14 08:00] VITALS: BP 120/72
[2021-12-14] MEDS: ASPIRIN 81MG TABLET PO SCH (08:06)
[2021-12-14] MEDS: SPIRONOLACTONE 25MG TABLET PO SCH (08:07)
[2021-12-14] MEDS: MORPHINE SULFATE 2 MG/ML CPJ (NOT FOR IM USE) IV PRN ×2 (08:08→16:13)
[2021-12-14] MEDS: APIXABAN 5 MG TABLET PO SCH ×2 (08:08→16:12)
[2021-12-14 11:01] LABS: PLATELET ESTIMATE NORMAL
[2021-12-14 12:00] VITALS: BP 111/61
[2021-12-14 16:00] VITALS: BP 118/70
[2021-12-14] MEDS ORDERED: METOLAZONE 10MG TABLET PO NR (16:30)
[2021-12-14] MEDS ORDERED: MONT-39 PO (18:16)
[2021-12-14] MEDS ORDERED: FAMO20TA8 PO (18:16)
[2021-12-14 20:00] VITALS: BP 122/76
[2021-12-14] MEDS: HYDROCODONE/ACETAMINOPHEN 5/325MG TABLET PO PRN (23:18)
[2021-12-15] VITALS: BP 111/38
[2021-12-15 04:00] VITALS: BP 131/105
[2021-12-15] MEDS: SODIUM CHLORIDE 0.9% INJ 3ML FLUSH IVF SCH ×3 (06:25→22:06)
[2021-12-15] MEDS: FUROSEMIDE 40MG/4ML VIAL IVP SCH ×2 (07:27→16:07)
[2021-12-15 07:34] LABS: HEMATOCRIT. 44.7 % (42.0-52.0); HEMOGLOBIN. 14.7 g/dL (14.0-18.0); MEAN CORPUSCULAR HEMOGLOBIN 28.8 pg (28.0-32.0); MEAN CORPUSCULAR VOLUME 87.9 fL (80.0-94.0); MEAN PLATELET VOLUME 8.4 fl (7.4-10.4); PLATELET 245 x1000/uL (130-400); RED BLOOD CELL COUNT 5.09 mill/uL (4.7-6.1); RED CELL DISTRIBUTION WIDTH 19.1 % (11.6-14.6)
[2021-12-15 08:00] VITALS: BP 129/78
[2021-12-15] MEDS: ASPIRIN 81MG TABLET PO SCH (08:04)
[2021-12-15] MEDS: MORPHINE SULFATE 2 MG/ML CPJ (NOT FOR IM USE) IV PRN ×2 (08:05→14:12)
[2021-12-15] MEDS: APIXABAN 5 MG TABLET PO SCH ×2 (08:05→16:07)
[2021-12-15] MEDS: SPIRONOLACTONE 25MG TABLET PO SCH (08:05)
[2021-12-15 11:06] LABS: PLATELET ESTIMATE NORMAL
[2021-12-15 12:00] VITALS: BP 128/70
[2021-12-15 15:30] VITALS: BP 117/70
[2021-12-15 20:00] VITALS: BP 110/47
[2021-12-16] VITALS: BP 123/62
[2021-12-16] MEDS: MORPHINE SULFATE 2 MG/ML CPJ (NOT FOR IM USE) IV PRN (03:01)
[2021-12-16 06:14] LABS: HEMATOCRIT. 44.5 % (42.0-52.0); HEMOGLOBIN. 14.5 g/dL (14.0-18.0); MEAN CORPUSCULAR HEMOGLOBIN 28.6 pg (28.0-32.0); MEAN CORPUSCULAR VOLUME 87.5 fL (80.0-94.0); PLATELET 241 x1000/uL (130-400); RED BLOOD CELL COUNT 5.08 mill/uL (4.7-6.1); RED CELL DISTRIBUTION WIDTH 19.3 % (11.6-14.6)
[2021-12-16] MEDS: SODIUM CHLORIDE 0.9% INJ 3ML FLUSH IVF SCH ×3 (06:17→22:00)
[2021-12-16] MEDS: FUROSEMIDE 40MG/4ML VIAL IVP SCH ×2 (06:29→16:28)
[2021-12-16 08:00] VITALS: BP 99/43
[2021-12-16] MEDS: ASPIRIN 81MG TABLET PO SCH (08:10)
[2021-12-16] MEDS: APIXABAN 5 MG TABLET PO SCH ×2 (08:11→16:27)
[2021-12-16] MEDS: SPIRONOLACTONE 25MG TABLET PO SCH (08:11)
[2021-12-16 09:17] LABS: PLATELET ESTIMATE NORMAL
[2021-12-16 11:34] VITALS: BP 107/81
[2021-12-16 15:37] VITALS: BP 110/62
[2021-12-16] MEDS ORDERED: ALLOPURINOL 100 MG TABLET PO NR (17:15)
[2021-12-16 23:24] VITALS: BP 120/65
[2021-12-16] MEDS: HYDROCODONE/ACETAMINOPHEN 5/325MG TABLET PO PRN (23:33)
[2021-12-17] MEDS: HYDROCODONE/ACETAMINOPHEN 5/325MG TABLET PO PRN ×2 (01:56→01:57)
[2021-12-17 04:00] VITALS: BP 110/74
[2021-12-17] MEDS: SODIUM CHLORIDE 0.9% INJ 3ML FLUSH IVF SCH ×3 (05:54→21:41)
[2021-12-17] MEDS: FUROSEMIDE 40MG/4ML VIAL IVP SCH ×2 (06:40→17:15)
[2021-12-17 06:52] LABS: HEMATOCRIT. 51.1 % (42.0-52.0); MEAN CORPUSCULAR HEMOGLOBIN 28.4 pg (28.0-32.0); MEAN CORPUSCULAR VOLUME 91.1 fL (80.0-94.0); MEAN PLATELET VOLUME 7.8 fl (7.4-10.4); PLATELET 210 x1000/uL (130-400); RED BLOOD CELL COUNT 5.62 mill/uL (4.7-6.1); RED CELL DISTRIBUTION WIDTH 19.1 % (11.6-14.6)
[2021-12-17 08:00] VITALS: BP 121/73
[2021-12-17] MEDS: SPIRONOLACTONE 25MG TABLET PO SCH (08:36)
[2021-12-17] MEDS: APIXABAN 5 MG TABLET PO SCH ×2 (08:48→17:00)
[2021-12-17] MEDS: ASPIRIN 81MG TABLET PO SCH (08:48)
[2021-12-17] MEDS: MORPHINE SULFATE 2 MG/ML CPJ (NOT FOR IM USE) IV PRN (08:49)
[2021-12-17 10:09] LABS: PLATELET ESTIMATE NORMAL
[2021-12-17] MEDS: CARVEDILOL 3.125 MG TABLET PO SCH ×2 (11:00→21:00)
[2021-12-17 12:00] VITALS: BP 99/67
[2021-12-17 14:34] VITALS: BP 99/67
[2021-12-17 16:00] VITALS: BP 120/78
[2021-12-17] MEDS: FUROSEMIDE 40MG TABLET PO SCH (17:30)
[2021-12-17 20:00] VITALS: BP 131/75
[2021-12-18] VITALS: BP 110/78
[2021-12-18 04:00] VITALS: BP 98/61
[2021-12-18] MEDS: SODIUM CHLORIDE 0.9% INJ 3ML FLUSH IVF SCH ×2 (05:57→14:05)
[2021-12-18] MEDS: FUROSEMIDE 40MG TABLET PO SCH (06:32)
[2021-12-18 06:50] LABS: EOSINOPHILS % 5.8 % (0.0-5.0); HEMATOCRIT. 48.9 % (42.0-52.0); HEMOGLOBIN. 16.1 g/dL (14.0-18.0); LYMPHOCYTES % 20.1 % (20.0-50.0); MEAN CORPUSCULAR HEMOGLOBIN 28.9 pg (28.0-32.0); MEAN CORPUSCULAR VOLUME 87.6 fL (80.0-94.0); MEAN PLATELET VOLUME 8.2 fl (7.4-10.4); MONOCYTES % 14.7 % (2.0-8.0); NEUTROPHILS % 58.4 % (40.0-76.0); PLATELET 276 x1000/uL (130-400); RED BLOOD CELL COUNT 5.58 mill/uL (4.7-6.1); RED CELL DISTRIBUTION WIDTH 18.9 % (11.6-14.6)
[2021-12-18 08:00] VITALS: BP 134/96
[2021-12-18] MEDS: ASPIRIN 81MG TABLET PO SCH (10:51)
[2021-12-18] MEDS: SPIRONOLACTONE 25MG TABLET PO SCH (10:52)
[2021-12-18] MEDS: APIXABAN 5 MG TABLET PO SCH (10:52)
[2021-12-18] MEDS: CARVEDILOL 3.125 MG TABLET PO SCH (10:53)
[2021-12-18 12:00] VITALS: BP 91/47
== END 2021-12-18 15:45 | disposition home or self-care (01) | DRG 194 ==
LOC: ER 16:22 → 8WST 23:47 → ENRESERV 12-13 02:35
PROVIDERS: ADMIT Internal Medicine; ATTEND Internal Medicine
DX: I13.0 Hypertensive heart and chronic kidney disease with heart failure and stage 1 through stage 4 chronic kidney disease, or unspecified chronic kidney disease (principal); J96.20 Acute and chronic respiratory failure, unspecified whether with hypoxia or hypercapnia; J18.9 Pneumonia, unspecified organism; I42.0 Dilated cardiomyopathy; I73.9 Peripheral vascular disease, unspecified; I48.0 Paroxysmal atrial fibrillation; I50.23 Acute on chronic systolic (congestive) heart failure; E66.01 Morbid (severe) obesity due to excess calories; Z20.822 Contact with and (suspected) exposure to COVID-19; M10.9 Gout, unspecified; R77.8 Other specified abnormalities of plasma proteins; G47.33 Obstructive sleep apnea (adult) (pediatric); M25.552 Pain in left hip; E78.5 Hyperlipidemia, unspecified; N18.9 Chronic kidney disease, unspecified; I25.10 Atherosclerotic heart disease of native coronary artery without angina pectoris; J44.9 Chronic obstructive pulmonary disease, unspecified; Z68.42 Body mass index [BMI] 45.0-49.9, adult; Z83.3 Family history of diabetes mellitus; Z82.49 Family history of ischemic heart disease and other diseases of the circulatory system; Z99.81 Dependence on supplemental oxygen; Z68.43 Body mass index [BMI] 50.0-59.9, adult; Z87.891 Personal history of nicotine dependence; Z91.14 Patient's other noncompliance with medication regimen; Z95.5 Presence of coronary angioplasty implant and graft; Z91.19 Patient's noncompliance with other medical treatment and regimen
CPT/HCPCS: 36415; 36600; 71045; 71250; 80048; 80053; 80305; 82375; 82805; 83735; 83880; 84484; 84550; 85025; 87426; 93005; 93970; 99285; J0360; J1650; J1940; J2270

== ENCOUNTER 2022-01-16 10:31 | Inpatient (IN) | payer MEDICAID, OTHER ==
[~2022-01-16] VITALS: Ht 162.6 cm; Wt 169.6 kg
[~2022-01-16 10:31] MED LIST changes: -APIX5TAB PO; +FAMO20TA8 PO; +MONT-39 PO
[2022-01-16] MEDS ORDERED: IPRATROPIUM BROMIDE (0.02%) 0.5MG/2.5ML NEB HHN STA (11:14)
[2022-01-16] MEDS ORDERED: METHYLPREDNISOLONE SOD SUCC 125 MG/2 ML VIAL IV STA (11:14)
[2022-01-16] MEDS ORDERED: ALBUTEROL (0.083%) 2.5MG/3ML NEB HHN STA (11:14)
[2022-01-16] MEDS ORDERED: FUROSEMIDE 40MG/4ML VIAL IV ONE (11:15)
[2022-01-16 12:25] LABS: HEMATOCRIT. 40.8 % (42.0-52.0); HEMOGLOBIN. 13.3 g/dL (14.0-18.0); MEAN CORPUSCULAR HEMOGLOBIN 28.9 pg (28.0-32.0); MEAN CORPUSCULAR VOLUME 88.4 fL (80.0-94.0); MEAN PLATELET VOLUME 7.7 fl (7.4-10.4); PLATELET 182 x1000/uL (130-400); RED BLOOD CELL COUNT 4.61 mill/uL (4.7-6.1); RED CELL DISTRIBUTION WIDTH 18.3 % (11.6-14.6)
[2022-01-16 12:33] LABS: CHLORIDE 111 mEq/L (98-107)
[2022-01-16] MEDS ORDERED: ASPIRIN 325MG TABLET PO ONE (13:00)
[2022-01-16 13:22] LABS: PLATELET ESTIMATE NORMAL
[2022-01-16] MEDS ORDERED: FUROSEMIDE 40MG/4ML VIAL IV NR (14:52)
[2022-01-16] MEDS ORDERED: METHYLPREDNISOLONE SOD SUCC 125 MG/2 ML VIAL IV NR (14:53)
[2022-01-16 20:20] VITALS: BP 125/86
[2022-01-16] MEDS ORDERED: NALOXONE HCL 0.4MG/ML VIAL IV PRN (21:15)
[2022-01-16] MEDS ORDERED: IPRATROPIUM/ALBUTEROL 0.5-3(2.5)MG/3ML NEB HHN PRN (21:15)
[2022-01-16] MEDS: HYDROCODONE/ACETAMINOPHEN 10/325MG TABLET PO PRN (21:33)
[2022-01-16 23:40] LABS: HEMATOCRIT. 42.3 % (42.0-52.0); HEMOGLOBIN. 13.8 g/dL (14.0-18.0); MEAN CORPUSCULAR HEMOGLOBIN 29.2 pg (28.0-32.0); MEAN CORPUSCULAR VOLUME 89.9 fL (80.0-94.0); MEAN PLATELET VOLUME 8.4 fl (7.4-10.4); PLATELET 192 x1000/uL (130-400); RED BLOOD CELL COUNT 4.71 mill/uL (4.7-6.1); RED CELL DISTRIBUTION WIDTH 18.5 % (11.6-14.6)
[2022-01-16] MEDS ORDERED: PNEUMOCOCCAL 23-VAL P-SAC VAC 0.5 ML IM ONE (23:45)
[2022-01-16 23:47] LABS: CHLORIDE 105 mEq/L (98-107)
[2022-01-17] VITALS (7 sets, daily range): BP systolic 107–149; BP diastolic 67–95
[2022-01-17 00:32] LABS: PLATELET ESTIMATE NORMAL
[2022-01-17] MEDS: HYDROCODONE/ACETAMINOPHEN 10/325MG TABLET PO PRN ×2 (04:12→08:43)
[2022-01-17] MEDS ORDERED: SODIUM POLYSTYRENE SULFONATE 15 G/60 ML BOT PO NR (05:45)
[2022-01-17] MEDS: FUROSEMIDE 40MG/4ML VIAL IVP SCH ×2 (06:33→17:14)
[2022-01-17 08:11] LABS: BASOPHILS % 0.7 % (0.0-2.0); HEMATOCRIT. 41.3 % (42.0-52.0); HEMOGLOBIN. 13.7 g/dL (14.0-18.0); LYMPHOCYTES % 7.1 % (20.0-50.0); MEAN CORPUSCULAR HEMOGLOBIN 29.5 pg (28.0-32.0); MEAN CORPUSCULAR VOLUME 88.5 fL (80.0-94.0); MEAN PLATELET VOLUME 8.2 fl (7.4-10.4); MONOCYTES % 5.3 % (2.0-8.0); NEUTROPHILS % 86.9 % (40.0-76.0); PLATELET 196 x1000/uL (130-400); RED BLOOD CELL COUNT 4.66 mill/uL (4.7-6.1); RED CELL DISTRIBUTION WIDTH 18.5 % (11.6-14.6)
[2022-01-17 08:26] LABS: CHLORIDE 107 mEq/L (98-107)
[2022-01-17] MEDS: ASPIRIN 81MG EC TABLET PO SCH (08:40)
[2022-01-17] MEDS: CARVEDILOL 12.5MG TABLET PO SCH ×2 (08:40→21:51)
[2022-01-17] MEDS: FAMOTIDINE 20MG TABLET PO SCH ×2 (08:41→17:14)
[2022-01-17] MEDS: SERTRALINE HCL 25MG TABLET PO SCH (08:43)
[2022-01-17] MEDS ORDERED: LISINOPRIL 20MG TABLET PO SCH (09:00)
[2022-01-17] MEDS ORDERED: ENOXAPARIN 40MG/0.4ML SYR SUBCUT SCH (09:00)
[2022-01-17] MEDS: SPIRONOLACTONE 25MG TABLET PO SCH (11:40)
[2022-01-17] MEDS: APIXABAN 5 MG TABLET PO SCH (17:14)
[2022-01-17] MEDS: MONTELUKAST SODIUM 10MG TABLET PO SCH (17:14)
[2022-01-17] MEDS: ATORVASTATIN CALCIUM 40MG TABLET PO SCH (21:51)
[2022-01-18] VITALS: BP 130/70
[2022-01-18 04:00] VITALS: BP 105/61
[2022-01-18] MEDS: FUROSEMIDE 40MG/4ML VIAL IVP SCH ×3 (06:25→21:36)
[2022-01-18 07:46] LABS: HEMATOCRIT. 41.5 % (42.0-52.0); HEMOGLOBIN. 13.4 g/dL (14.0-18.0); MEAN CORPUSCULAR HEMOGLOBIN 29.4 pg (28.0-32.0); MEAN CORPUSCULAR VOLUME 91.1 fL (80.0-94.0); MEAN PLATELET VOLUME 8.6 fl (7.4-10.4); PLATELET 195 x1000/uL (130-400); RED BLOOD CELL COUNT 4.55 mill/uL (4.7-6.1)
[2022-01-18 08:00] VITALS: BP 123/54
[2022-01-18 08:03] LABS: CHLORIDE 105 mEq/L (98-107)
[2022-01-18] MEDS: ASPIRIN 81MG EC TABLET PO SCH (09:29)
[2022-01-18] MEDS: SERTRALINE HCL 25MG TABLET PO SCH (09:29)
[2022-01-18] MEDS: APIXABAN 5 MG TABLET PO SCH ×2 (09:29→17:09)
[2022-01-18] MEDS: SPIRONOLACTONE 25MG TABLET PO SCH (09:29)
[2022-01-18] MEDS: CARVEDILOL 12.5MG TABLET PO SCH ×2 (09:29→21:36)
[2022-01-18] MEDS: FAMOTIDINE 20MG TABLET PO SCH ×2 (09:29→17:09)
[2022-01-18 10:48] LABS: PLATELET ESTIMATE NORMAL
[2022-01-18 11:08] LABS: BG BASE EXCESS 2.3 mmol/L (-2.0-2.0); BG CARBOXYHEMOGLOBIN 0.7 % (0.5-1.5); BG DEOXYHEMOGLOBIN 7.9 % (0.0-5.0); BG FRACTION INSPIRED OXYGEN 21; BG HCO3 ACT 26.9 mmol/L (22.0-26.0); BG METHEMOGLOBIN 0.4 % (0.0-1.5); BG PCO2 41.5 mmHg (35.0-45.0); BG PH 7.429 (7.350-7.450); BG PO2 61.5 mmHg (75.0-100.0); BG SAMPLE SITE LEFT RADIAL; BG TOTAL HEMOGLOBIN 14.3 g/dL (12.0-18.0); BG VENT MODE ROOM AIR
[2022-01-18 12:00] VITALS: BP 132/19
[2022-01-18 16:00] VITALS: BP 106/61
[2022-01-18] MEDS: MONTELUKAST SODIUM 10MG TABLET PO SCH (17:09)
[2022-01-18] MEDS: HYDROCODONE/ACETAMINOPHEN 10/325MG TABLET PO PRN (19:47)
[2022-01-18 19:53] VITALS: BP 118/94
[2022-01-18] MEDS: ATORVASTATIN CALCIUM 40MG TABLET PO SCH (21:36)
[2022-01-19] VITALS: BP 120/82
[2022-01-19 03:31] VITALS: BP 121/78
[2022-01-19] MEDS: FUROSEMIDE 40MG/4ML VIAL IVP SCH ×3 (06:07→21:19)
[2022-01-19] MEDS: HYDROCODONE/ACETAMINOPHEN 10/325MG TABLET PO PRN (06:54)
[2022-01-19 07:42] LABS: HEMATOCRIT. 43.7 % (42.0-52.0); HEMOGLOBIN. 14.5 g/dL (14.0-18.0); MEAN CORPUSCULAR HEMOGLOBIN 29.5 pg (28.0-32.0); MEAN CORPUSCULAR VOLUME 88.7 fL (80.0-94.0); MEAN PLATELET VOLUME 8.3 fl (7.4-10.4); PLATELET 213 x1000/uL (130-400); RED BLOOD CELL COUNT 4.93 mill/uL (4.7-6.1); RED CELL DISTRIBUTION WIDTH 17.9 % (11.6-14.6)
[2022-01-19 07:47] LABS: CHLORIDE 101 mEq/L (98-107)
[2022-01-19 08:00] VITALS: BP 130/69
[2022-01-19] MEDS: SPIRONOLACTONE 25MG TABLET PO SCH (08:51)
[2022-01-19] MEDS: SERTRALINE HCL 25MG TABLET PO SCH (08:51)
[2022-01-19] MEDS: CARVEDILOL 12.5MG TABLET PO SCH ×2 (08:51→21:19)
[2022-01-19] MEDS: APIXABAN 5 MG TABLET PO SCH ×2 (08:51→17:01)
[2022-01-19] MEDS: ASPIRIN 81MG EC TABLET PO SCH (08:51)
[2022-01-19] MEDS: FAMOTIDINE 20MG TABLET PO SCH (08:51)
[2022-01-19] MEDS ORDERED: MAGNESIUM/ALUMINUM HYDROXIDE/SIMETHICONE 30ML UDC PO PRN (10:00)
[2022-01-19] MEDS ORDERED: FAMOTIDINE 20MG TABLET PO ONE (10:00)
[2022-01-19] MEDS ORDERED: MORPHINE SULFATE 2 MG/ML CPJ (NOT FOR IM USE) IV NR ×2 (10:30→12:15)
[2022-01-19 12:00] VITALS: BP 104/62
[2022-01-19] MEDS ORDERED: LACTULOSE 20G/30ML UDC PO NR (13:30)
[2022-01-19 13:44] LABS: PLATELET ESTIMATE NORMAL
[2022-01-19 16:00] VITALS: BP 107/69
[2022-01-19] MEDS: MONTELUKAST SODIUM 10MG TABLET PO SCH (17:01)
[2022-01-19] MEDS ORDERED: ACET-2708 MT (18:20)
[2022-01-19] MEDS ORDERED: POTA-205 MT (18:20)
[2022-01-19] MEDS ORDERED: FURO-151 PO (18:20)
[2022-01-19] MEDS ORDERED: ASCO500T20 MT (18:20)
[2022-01-19] MEDS ORDERED: LOSA50TA41 MT (18:20)
[2022-01-19 20:00] VITALS: BP 119/73
[2022-01-19] MEDS ORDERED: FAMOTIDINE 20MG TABLET PO SCH (21:00)
[2022-01-19] MEDS: ATORVASTATIN CALCIUM 40MG TABLET PO SCH (21:19)
[2022-01-20] VITALS: BP 112/69
[2022-01-20] MEDS: HYDROCODONE/ACETAMINOPHEN 10/325MG TABLET PO PRN (01:41)
[2022-01-20 04:00] VITALS: BP 101/58
[2022-01-20] MEDS: FUROSEMIDE 40MG/4ML VIAL IVP SCH ×2 (05:28→14:00)
[2022-01-20 08:00] VITALS: BP 103/59
[2022-01-20] MEDS: APIXABAN 5 MG TABLET PO SCH (08:17)
[2022-01-20] MEDS: ASPIRIN 81MG EC TABLET PO SCH (08:17)
[2022-01-20] MEDS: SPIRONOLACTONE 25MG TABLET PO SCH (08:18)
[2022-01-20] MEDS: CARVEDILOL 12.5MG TABLET PO SCH (08:19)
[2022-01-20] MEDS: SERTRALINE HCL 25MG TABLET PO SCH (08:19)
[2022-01-20 12:00] VITALS: BP 145/91
[2022-01-20 16:00] VITALS: BP 107/43
[2022-01-20 16:24] VITALS: BP 107/43
== END 2022-01-20 18:27 | disposition home or self-care (01) | DRG 194 ==
LOC: ER 10:31 → UNDOADMIN 14:09 → MICUSO 14:09 → EDBEDREQTM 14:13 → EDBEDREQ 14:13 → ENRESERV 18:13 → 6WST 21:24
PROVIDERS: ADMIT Internal Medicine; ATTEND Internal Medicine
DX: I13.0 Hypertensive heart and chronic kidney disease with heart failure and stage 1 through stage 4 chronic kidney disease, or unspecified chronic kidney disease (principal); J96.21 Acute and chronic respiratory failure with hypoxia; E44.1 Mild protein-calorie malnutrition; I42.0 Dilated cardiomyopathy; J44.1 Chronic obstructive pulmonary disease with (acute) exacerbation; I50.23 Acute on chronic systolic (congestive) heart failure; Z68.44 Body mass index [BMI] 60.0-69.9, adult; E66.01 Morbid (severe) obesity due to excess calories; I48.0 Paroxysmal atrial fibrillation; N18.9 Chronic kidney disease, unspecified; G47.33 Obstructive sleep apnea (adult) (pediatric); I49.1 Atrial premature depolarization; I49.3 Ventricular premature depolarization; I25.10 Atherosclerotic heart disease of native coronary artery without angina pectoris; E03.9 Hypothyroidism, unspecified; I25.2 Old myocardial infarction; E87.8 Other disorders of electrolyte and fluid balance, not elsewhere classified; E78.5 Hyperlipidemia, unspecified; Z91.14 Patient's other noncompliance with medication regimen; Z95.5 Presence of coronary angioplasty implant and graft; Z83.3 Family history of diabetes mellitus; Z82.49 Family history of ischemic heart disease and other diseases of the circulatory system; Z91.018 Allergy to other foods; Z87.891 Personal history of nicotine dependence; Z79.01 Long term (current) use of anticoagulants
CPT/HCPCS: 36415; 36600; 71045; 74018; 80048; 80053; 82375; 82805; 83735; 83880; 84484; 85025; 93005; 93306; 94640; 94660; 99291; C1893; J1650; J1940; J2270; J2930

== ENCOUNTER 2022-05-02 07:14 | Inpatient (IN) | payer MEDICAID, OTHER ==
[~2022-05-02] VITALS: Ht 162.6 cm; Wt 145.1 kg
[~2022-05-02 07:14] MED LIST changes: +ACET-2708 MT; +ALBU6.7H3 INH; -ALBU6.7H9 INH; +ASCO500T20 MT; +FURO-151 PO; +LOSA50TA41 MT; +POTA-205 MT
[2022-05-02 08:56] LABS: CHLORIDE 111 mEq/L (98-107)
[2022-05-02 09:05] LABS: CLARITY URINE CLEAR (CLEAR); COLOR URINE YELLOW (YELLOW); KETONES URINE NEGATIVE (NEGATIVE); LEUKOCYTE ESTERASE URINE NEGATIVE (NEGATIVE); NITRITE URINE NEGATIVE (NEGATIVE); OCCULT BLOOD URINE NEGATIVE (NEGATIVE); PH URINE 5.5 (4.5-8.0); PROTEIN URINE 1+ (NEGATIVE); SPECIFIC GRAVITY URINE 1.015 (1.005-1.030); UROBILINOGEN URINE 0.2 E.U./dL (0.2-1.0)
[2022-05-02 09:15] LABS: BASOPHILS % 1.2 % (0.0-2.0); EOSINOPHILS % 1.7 % (0.0-5.0); HEMATOCRIT. 41.1 % (42.0-52.0); HEMOGLOBIN. 13.2 g/dL (14.0-18.0); LYMPHOCYTES % 12.5 % (20.0-50.0); MEAN CORPUSCULAR HEMOGLOBIN 28.6 pg (28.0-32.0); MEAN CORPUSCULAR VOLUME 88.9 fL (80.0-94.0); MEAN PLATELET VOLUME 8.5 fl (7.4-10.4); MONOCYTES % 11.3 % (2.0-8.0); NEUTROPHILS % 73.3 % (40.0-76.0); PLATELET 276 x1000/uL (130-400); RED BLOOD CELL COUNT 4.62 mill/uL (4.7-6.1); RED CELL DISTRIBUTION WIDTH 17.9 % (11.6-14.6)
[2022-05-02] MEDS ORDERED: ENALAPRIL 2.5MG/2ML VIAL 2ML IV ONE (11:15)
[2022-05-02] MEDS ORDERED: FUROSEMIDE 40MG/4ML VIAL IVP ONE (11:15)
[2022-05-02] MEDS ORDERED: ENALAPRIL 1.25MG/ML VIAL 1ML IV NR (11:45)
[2022-05-02] MEDS: FUROSEMIDE 100MG/10ML VIAL IVP SCH (14:00)
[2022-05-02] MEDS ORDERED: ACETAMINOPHEN 325MG TABLET PO PRN (14:00)
[2022-05-02 22:30] VITALS: BP 146/82
[2022-05-03] VITALS: BP 130/73
[2022-05-03] MEDS: ENOXAPARIN 40MG/0.4ML SYR SUBCUT SCH ×3 (01:31→20:39)
[2022-05-03 04:00] VITALS: BP 124/73
[2022-05-03 08:03] VITALS: BP 140/75
[2022-05-03] MEDS: ASPIRIN 81MG TABLET PO SCH (08:54)
[2022-05-03] MEDS: FUROSEMIDE 100MG/10ML VIAL IVP SCH ×2 (08:54→17:23)
[2022-05-03 12:30] VITALS: BP 130/79
[2022-05-03 18:00] VITALS: BP 137/101
[2022-05-03] MEDS: ONDANSETRON HCL 4MG/2ML INJ IV PRN (19:09)
[2022-05-03 20:00] VITALS: BP 126/72
[2022-05-03] MEDS: FAMOTIDINE 20MG TABLET PO SCH (20:38)
[2022-05-03] MEDS: METHYLPREDNISOLONE SOD SUCC 40 MG/ML VIAL IV SCH (20:41)
[2022-05-03] MEDS ORDERED: NALOXONE HCL 0.4MG/ML VIAL IV PRN (21:15)
[2022-05-03] MEDS: HYDROCODONE/ACETAMINOPHEN 10/325MG TABLET PO PRN (21:17)
[2022-05-04] VITALS: BP 131/73
[2022-05-04] MEDS: METHYLPREDNISOLONE SOD SUCC 40 MG/ML VIAL IV SCH ×3 (03:46→20:10)
[2022-05-04 04:00] VITALS: BP 153/63
[2022-05-04 08:00] VITALS: BP 141/76
[2022-05-04] MEDS: ASPIRIN 81MG TABLET PO SCH (08:12)
[2022-05-04] MEDS: METOLAZONE 2.5MG TABLET PO SCH (08:12)
[2022-05-04] MEDS: FAMOTIDINE 20MG TABLET PO SCH ×2 (08:13→20:11)
[2022-05-04] MEDS: ENOXAPARIN 40MG/0.4ML SYR SUBCUT SCH ×2 (08:13→20:11)
[2022-05-04] MEDS: FUROSEMIDE 100MG/10ML VIAL IVP SCH ×2 (08:13→16:15)
[2022-05-04] MEDS: IPRATROPIUM/ALBUTEROL 0.5-3(2.5)MG/3ML NEB HHN SCH ×3 (08:52→20:01)
[2022-05-04 12:00] VITALS: BP 138/83
[2022-05-04] MEDS ORDERED: METO2.5T2 MT (15:56)
[2022-05-04] MEDS ORDERED: FURO-151 MT (15:57)
[2022-05-04 16:00] VITALS: BP 153/70
[2022-05-04 20:00] VITALS: BP 119/65
[2022-05-04] MEDS: HYDROCODONE/ACETAMINOPHEN 10/325MG TABLET PO PRN (21:53)
[2022-05-05] VITALS: BP 129/89
[2022-05-05] MEDS: IPRATROPIUM/ALBUTEROL 0.5-3(2.5)MG/3ML NEB HHN SCH ×3 (01:08→14:07)
[2022-05-05 04:00] VITALS: BP 114/64
[2022-05-05] MEDS: METHYLPREDNISOLONE SOD SUCC 40 MG/ML VIAL IV SCH ×2 (04:30→12:14)
[2022-05-05 08:00] VITALS: BP 121/65
[2022-05-05] MEDS: ONDANSETRON HCL 4MG/2ML INJ IV PRN (08:18)
[2022-05-05] MEDS: ENOXAPARIN 40MG/0.4ML SYR SUBCUT SCH (08:19)
[2022-05-05] MEDS: ASPIRIN 81MG TABLET PO SCH (08:19)
[2022-05-05] MEDS: METOLAZONE 2.5MG TABLET PO SCH (08:19)
[2022-05-05] MEDS: FUROSEMIDE 100MG/10ML VIAL IVP SCH ×2 (08:19→16:14)
[2022-05-05] MEDS: FAMOTIDINE 20MG TABLET PO SCH (08:19)
[2022-05-05 11:33] VITALS: BP 135/64
[2022-05-05 12:00] VITALS: BP 131/77
[2022-05-05 16:00] VITALS: BP 135/81
== END 2022-05-05 18:00 | disposition home or self-care (01) | DRG 194 ==
LOC: ER 07:14 → 8WST 11:49 → EDBEDREQTM 11:54 → EDBEDREQ 11:54
PROVIDERS: ADMIT Internal Medicine; ATTEND Internal Medicine
DX: I13.0 Hypertensive heart and chronic kidney disease with heart failure and stage 1 through stage 4 chronic kidney disease, or unspecified chronic kidney disease (principal); J96.20 Acute and chronic respiratory failure, unspecified whether with hypoxia or hypercapnia; N17.9 Acute kidney failure, unspecified; I50.23 Acute on chronic systolic (congestive) heart failure; J44.9 Chronic obstructive pulmonary disease, unspecified; I25.10 Atherosclerotic heart disease of native coronary artery without angina pectoris; E03.9 Hypothyroidism, unspecified; E05.90 Thyrotoxicosis, unspecified without thyrotoxic crisis or storm; E66.01 Morbid (severe) obesity due to excess calories; Z20.822 Contact with and (suspected) exposure to COVID-19; Z68.43 Body mass index [BMI] 50.0-59.9, adult; N18.9 Chronic kidney disease, unspecified; Z99.81 Dependence on supplemental oxygen; Z95.5 Presence of coronary angioplasty implant and graft; I25.2 Old myocardial infarction; Z83.3 Family history of diabetes mellitus; Z82.49 Family history of ischemic heart disease and other diseases of the circulatory system
CPT/HCPCS: 36415; 71045; 74176; 80048; 80053; 81003; 82962; 83880; 84484; 85025; 87426; 94640; 99285; J1650; J1940; J2405; J2920; J3490

== ENCOUNTER 2022-06-18 14:02 | Inpatient (IN) | payer MEDICAID, OTHER ==
[~2022-06-18] VITALS: Ht 162.6 cm; Wt 152.0 kg
[~2022-06-18 14:02] MED LIST changes: +FURO-151 MT; +LEVO-65 MT; +METO2.5T2 MT
[2022-06-18] MEDS ORDERED: ACETAMINOPHEN 325MG TABLET PO STA (14:24)
[2022-06-18] MEDS ORDERED: FUROSEMIDE 40MG/4ML VIAL IV ONE (14:30)
[2022-06-18] MEDS ORDERED: ASPIRIN 81MG TABLET PO ONE (14:30)
[2022-06-18 15:37] LABS: CHLORIDE 101 mEq/L (98-107)
[2022-06-18 15:38] LABS: HEMATOCRIT. 40.7 % (42.0-52.0); HEMOGLOBIN. 13.2 g/dL (14.0-18.0); MEAN CORPUSCULAR HEMOGLOBIN 28.7 pg (28.0-32.0); MEAN CORPUSCULAR VOLUME 88.4 fL (80.0-94.0); RED BLOOD CELL COUNT 4.61 mill/uL (4.7-6.1); RED CELL DISTRIBUTION WIDTH 19.3 % (11.6-14.6)
[2022-06-18] MEDS ORDERED: ENOXAPARIN 150MG/ML SYR SUBCUT ONE (16:15)
[2022-06-18 16:45] LABS: NUCLEATED RED BLOOD CELLS 1 /100 WBC
[2022-06-18] MEDS ORDERED: HYDROCODONE/ACETAMINOPHEN 5/325MG TABLET PO ONE (16:45)
[2022-06-18 16:46] LABS: PLATELET ESTIMATE NORMAL
[2022-06-18 16:48] LABS: MEAN PLATELET VOLUME 7.7 fl (7.4-10.4); PLATELET 154 x1000/uL (130-400)
[2022-06-18] MEDS ORDERED: MORPHINE SULFATE 2 MG/ML CPJ (NOT FOR IM USE) IV NR (20:45)
[2022-06-19] VITALS: BP 158/90
[2022-06-19] MEDS ORDERED: ACETAMINOPHEN 325MG TABLET PO PRN (00:45)
[2022-06-19] MEDS ORDERED: IPRATROPIUM/ALBUTEROL 0.5-3(2.5)MG/3ML NEB HHN PRN (00:45)
[2022-06-19] MEDS ORDERED: ALBUTEROL (0.083%) 2.5MG/3ML NEB HHN PRN (01:00)
[2022-06-19] MEDS ORDERED: IPRATROPIUM BROMIDE (0.02%) 0.5MG/2.5ML NEB HHN PRN (01:00)
[2022-06-19] MEDS ORDERED: CLONIDINE 0.1MG TABLET PO PRN (01:00)
[2022-06-19] MEDS: HYDROCODONE/ACETAMINOPHEN 10/325MG TABLET PO PRN ×5 (01:11→21:46)
[2022-06-19 04:00] VITALS: BP 141/68
[2022-06-19 07:58] LABS: HEMATOCRIT. 36.9 % (42.0-52.0); HEMOGLOBIN. 11.6 g/dL (14.0-18.0); MEAN CORPUSCULAR HEMOGLOBIN 28.7 pg (28.0-32.0); MEAN PLATELET VOLUME 7.6 fl (7.4-10.4); PLATELET 132 x1000/uL (130-400); RED BLOOD CELL COUNT 4.05 mill/uL (4.7-6.1); RED CELL DISTRIBUTION WIDTH 18.9 % (11.6-14.6)
[2022-06-19 08:00] VITALS: BP 142/70
[2022-06-19] MEDS ORDERED: ENOXAPARIN 40MG/0.4ML SYR SUBCUT SCH (09:00)
[2022-06-19] MEDS ORDERED: METOPROLOL TARTRATE 50MG TABLET PO SCH (09:00)
[2022-06-19] MEDS: FUROSEMIDE 40MG/4ML VIAL IVP SCH ×2 (10:02→21:45)
[2022-06-19] MEDS: DOCUSATE SODIUM 250MG CAPSULE PO SCH ×2 (10:03→17:00)
[2022-06-19] MEDS: CARVEDILOL 12.5MG TABLET PO SCH ×2 (10:03→17:00)
[2022-06-19] MEDS: ASPIRIN 81MG TABLET PO SCH (10:03)
[2022-06-19 12:00] VITALS: BP 112/60
[2022-06-19 16:00] VITALS: BP 104/55
[2022-06-19 19:39] LABS: NUCLEATED RED BLOOD CELLS 1 /100 WBC; PLATELET ESTIMATE NORMAL
[2022-06-19 20:00] VITALS: BP 133/68
[2022-06-20] VITALS (7 sets, daily range): BP systolic 99–139; BP diastolic 46–91
[2022-06-20 07:38] LABS: HEMATOCRIT. 33.9 % (42.0-52.0); MEAN CORPUSCULAR HEMOGLOBIN 28.7 pg (28.0-32.0); MEAN CORPUSCULAR VOLUME 88.7 fL (80.0-94.0); PLATELET 126 x1000/uL (130-400); RED BLOOD CELL COUNT 3.83 mill/uL (4.7-6.1); RED CELL DISTRIBUTION WIDTH 19.3 % (11.6-14.6)
[2022-06-20] MEDS: DOCUSATE SODIUM 250MG CAPSULE PO SCH ×2 (09:08→17:28)
[2022-06-20] MEDS: FUROSEMIDE 40MG/4ML VIAL IVP SCH ×2 (09:08→20:52)
[2022-06-20] MEDS: ASPIRIN 81MG TABLET PO SCH (09:08)
[2022-06-20] MEDS: ENOXAPARIN 30MG/0.3ML SYR SUBCUT SCH ×2 (09:09→20:53)
[2022-06-20] MEDS: CARVEDILOL 12.5MG TABLET PO SCH (09:21)
[2022-06-20 13:40] LABS: PLATELET ESTIMATE DECREASED
[2022-06-20] MEDS ORDERED: METOPROLOL TARTRATE 25MG TABLET PO SCH (16:30)
[2022-06-20] MEDS ORDERED: DILTIAZEM HCL 5MG/ML 5ML VIAL IV NR (16:45)
[2022-06-20] MEDS ORDERED: NALOXONE HCL 0.4MG/ML VIAL IV PRN (16:45)
[2022-06-20] MEDS: METOPROLOL TARTRATE 25MG TABLET PO SCH (20:52)
[2022-06-21] VITALS: BP 125/55
[2022-06-21] MEDS: HYDROCODONE/ACETAMINOPHEN 10/325MG TABLET PO PRN (02:33)
[2022-06-21 04:00] VITALS: BP 140/71
[2022-06-21] MEDS ORDERED: DILTIAZEM HCL 5MG/ML 5ML VIAL IV NR ×2 (06:15→22:00)
[2022-06-21 08:00] VITALS: BP 99/70
[2022-06-21] MEDS: METOPROLOL TARTRATE 25MG TABLET PO SCH ×2 (09:00→21:26)
[2022-06-21] MEDS: ASPIRIN 81MG TABLET PO SCH (09:32)
[2022-06-21] MEDS: DOCUSATE SODIUM 250MG CAPSULE PO SCH ×2 (09:32→17:17)
[2022-06-21] MEDS: FUROSEMIDE 40MG/4ML VIAL IVP SCH ×2 (09:34→21:25)
[2022-06-21] MEDS: ENOXAPARIN 30MG/0.3ML SYR SUBCUT SCH (09:35)
[2022-06-21 12:00] VITALS: BP 111/75
[2022-06-21] MEDS ORDERED: DIGOXIN 500MCG/2ML AMP IV SCH (12:30)
[2022-06-21] MEDS: DILTIAZEM HCL 90MG TABLET PO SCH ×2 (13:11→17:17)
[2022-06-21 16:00] VITALS: BP 115/75
[2022-06-21] MEDS: APIXABAN 5 MG TABLET PO SCH (17:17)
[2022-06-21] MEDS: DIGOXIN 125MCG TABLET PO SCH (17:17)
[2022-06-21 20:00] VITALS: BP 110/61
[2022-06-22] VITALS (7 sets, daily range): BP systolic 95–131; BP diastolic 40–90
[2022-06-22] MEDS: DILTIAZEM HCL 90MG TABLET PO SCH ×4 (00:42→17:19)
[2022-06-22 05:37] LABS: CHLORIDE 104 mEq/L (98-107)
[2022-06-22 06:39] LABS: HEMATOCRIT. 32.6 % (42.0-52.0); HEMOGLOBIN. 10.6 g/dL (14.0-18.0); MEAN CORPUSCULAR HEMOGLOBIN 28.7 pg (28.0-32.0); MEAN CORPUSCULAR VOLUME 87.9 fL (80.0-94.0); MEAN PLATELET VOLUME 7.9 fl (7.4-10.4); PLATELET 127 x1000/uL (130-400); RED CELL DISTRIBUTION WIDTH 19.3 % (11.6-14.6)
[2022-06-22] MEDS ORDERED: METOLAZONE 2.5MG TABLET PO NR (08:15)
[2022-06-22] MEDS: FUROSEMIDE 40MG/4ML VIAL IVP SCH ×2 (08:53→21:20)
[2022-06-22] MEDS: DOCUSATE SODIUM 250MG CAPSULE PO SCH ×2 (08:53→17:19)
[2022-06-22] MEDS: APIXABAN 5 MG TABLET PO SCH ×2 (08:53→17:19)
[2022-06-22] MEDS: ASPIRIN 81MG TABLET PO SCH (08:53)
[2022-06-22] MEDS: METOPROLOL TARTRATE 25MG TABLET PO SCH ×2 (09:00→21:00)
[2022-06-22] MEDS: HYDROCODONE/ACETAMINOPHEN 10/325MG TABLET PO PRN (09:03)
[2022-06-22] MEDS ORDERED: DIGOXIN 500MCG/2ML AMP IV SCH (09:45)
[2022-06-22] MEDS: GABAPENTIN 300MG CAPSULE PO SCH ×2 (12:47→17:16)
[2022-06-22] MEDS ORDERED: DIGOXIN 125MCG TABLET PO NR (13:15)
[2022-06-22] MEDS: MIDODRINE HCL 2.5MG TABLET PO SCH ×2 (14:14→17:19)
[2022-06-22] MEDS ORDERED: DILTIAZEM HCL 5MG/ML 5ML VIAL IV NR (14:15)
[2022-06-22] MEDS: DIGOXIN 125MCG TABLET PO SCH (17:17)
[2022-06-22] MEDS: IBUPROFEN 600MG TABLET PO SCH (17:18)
[2022-06-23 00:06] VITALS: BP 108/75
[2022-06-23] MEDS: DILTIAZEM HCL 90MG TABLET PO SCH ×4 (00:50→17:40)
[2022-06-23 01:17] LABS: PLATELET ESTIMATE DECREASED
[2022-06-23 04:00] VITALS: BP 99/67
[2022-06-23 07:57] VITALS: BP 107/65
[2022-06-23 08:04] LABS: CHLORIDE 101 mEq/L (98-107)
[2022-06-23] MEDS: GABAPENTIN 300MG CAPSULE PO SCH ×3 (08:37→17:39)
[2022-06-23] MEDS: FUROSEMIDE 40MG/4ML VIAL IVP SCH ×2 (08:37→21:15)
[2022-06-23] MEDS: IBUPROFEN 600MG TABLET PO SCH ×2 (08:39→17:41)
[2022-06-23] MEDS: APIXABAN 5 MG TABLET PO SCH ×3 (08:39→21:15)
[2022-06-23] MEDS: ASPIRIN 81MG TABLET PO SCH (08:39)
[2022-06-23] MEDS: MIDODRINE HCL 2.5MG TABLET PO SCH ×3 (08:39→17:42)
[2022-06-23] MEDS: DOCUSATE SODIUM 250MG CAPSULE PO SCH ×2 (08:39→17:41)
[2022-06-23] MEDS: METOPROLOL TARTRATE 25MG TABLET PO SCH ×2 (09:00→21:00)
[2022-06-23 11:37] VITALS: BP 137/79
[2022-06-23] MEDS ORDERED: DILTIAZEM HCL 5MG/ML 5ML VIAL IV PRN (12:30)
[2022-06-23] MEDS ORDERED: DILTIAZEM HCL 5MG/ML 5ML VIAL IV NR (12:30)
[2022-06-23] MEDS ORDERED: FUROSEMIDE 40MG/4ML VIAL IVP NR (12:30)
[2022-06-23 16:10] VITALS: BP 129/88
[2022-06-23] MEDS: DIGOXIN 125MCG TABLET PO SCH (17:41)
[2022-06-23 20:40] VITALS: BP 105/49
[2022-06-24] MEDS: HYDROCODONE/ACETAMINOPHEN 10/325MG TABLET PO PRN (00:04)
[2022-06-24] MEDS: DILTIAZEM HCL 90MG TABLET PO SCH ×5 (00:04→23:12)
[2022-06-24 00:45] VITALS: BP 117/61
[2022-06-24] MEDS ORDERED: DIGOXIN 500MCG/2ML AMP IV NR (02:30)
[2022-06-24 04:00] VITALS: BP 111/67
[2022-06-24 06:45] LABS: HEMATOCRIT. 35.4 % (42.0-52.0); HEMOGLOBIN. 10.8 g/dL (14.0-18.0); MEAN CORPUSCULAR HEMOGLOBIN 28.3 pg (28.0-32.0); MEAN CORPUSCULAR VOLUME 92.5 fL (80.0-94.0); MEAN PLATELET VOLUME 7.6 fl (7.4-10.4); PLATELET 113 x1000/uL (130-400); RED BLOOD CELL COUNT 3.83 mill/uL (4.7-6.1); RED CELL DISTRIBUTION WIDTH 19.6 % (11.6-14.6)
[2022-06-24 08:00] VITALS: BP 101/76
[2022-06-24] MEDS: METOPROLOL TARTRATE 25MG TABLET PO SCH ×2 (08:31→20:44)
[2022-06-24] MEDS: APIXABAN 5 MG TABLET PO SCH ×2 (08:39→17:36)
[2022-06-24] MEDS: FUROSEMIDE 40MG/4ML VIAL IVP SCH ×2 (08:39→20:45)
[2022-06-24] MEDS: MIDODRINE HCL 2.5MG TABLET PO SCH ×3 (08:39→17:00)
[2022-06-24] MEDS: DOCUSATE SODIUM 250MG CAPSULE PO SCH ×2 (08:39→17:39)
[2022-06-24] MEDS: IBUPROFEN 600MG TABLET PO SCH ×2 (08:39→17:36)
[2022-06-24] MEDS: ASPIRIN 81MG TABLET PO SCH (08:39)
[2022-06-24] MEDS: GABAPENTIN 300MG CAPSULE PO SCH ×3 (08:39→17:36)
[2022-06-24] MEDS ORDERED: FUROSEMIDE 40MG/4ML VIAL IV NR (09:00)
[2022-06-24 09:06] LABS: CHLORIDE 99 mEq/L (98-107)
[2022-06-24 12:00] VITALS: BP 153/87
[2022-06-24] MEDS: PREDNISONE 20MG TABLET PO SCH (13:01)
[2022-06-24] MEDS ORDERED: ALBUTEROL (0.083%) 2.5MG/3ML NEB HHN PRN ×2 (15:00)
[2022-06-24 16:00] VITALS: BP 136/108
[2022-06-24] MEDS: DIGOXIN 125MCG TABLET PO SCH (17:36)
[2022-06-24] MEDS ORDERED: LEVO50TA PO (18:09)
[2022-06-24] MEDS ORDERED: METO-396 PO (18:10)
[2022-06-24] MEDS ORDERED: HYDR-4134 PO (18:13)
[2022-06-24] MEDS ORDERED: LISI-186 PO (18:16)
[2022-06-24] MEDS ORDERED: ATOR10TA PO (18:18)
[2022-06-24] MEDS ORDERED: SENN-257 PO (18:22)
[2022-06-24] MEDS ORDERED: CLOP-31 PO (18:23)
[2022-06-24 20:00] VITALS: BP_SYST 132; BP_SYST 155; BP_DIAS 85; BP_DIAS 90
[2022-06-25] VITALS (30 sets, daily range): BP systolic 86–145; BP diastolic 50–99
[2022-06-25 05:26] LABS: PLATELET ESTIMATE NORMAL
[2022-06-25] MEDS: DILTIAZEM HCL 90MG TABLET PO SCH ×3 (06:00→18:11)
[2022-06-25 07:18] LABS: BASOPHILS % 0.7 % (0.0-2.0); EOSINOPHILS % 0.6 % (0.0-5.0); HEMATOCRIT. 33.3 % (42.0-52.0); HEMOGLOBIN. 10.9 g/dL (14.0-18.0); LYMPHOCYTES % 10.1 % (20.0-50.0); MEAN CORPUSCULAR HEMOGLOBIN 28.5 pg (28.0-32.0); MEAN CORPUSCULAR VOLUME 87.4 fL (80.0-94.0); MONOCYTES % 17.4 % (2.0-8.0); NEUTROPHILS % 71.2 % (40.0-76.0); PLATELET 200 x1000/uL (130-400); RED BLOOD CELL COUNT 3.81 mill/uL (4.7-6.1); RED CELL DISTRIBUTION WIDTH 19.3 % (11.6-14.6)
[2022-06-25] MEDS: DOCUSATE SODIUM 250MG CAPSULE PO SCH ×2 (09:00→18:11)
[2022-06-25] MEDS: GABAPENTIN 300MG CAPSULE PO SCH ×3 (09:00→18:11)
[2022-06-25] MEDS: ASPIRIN 81MG TABLET PO SCH (09:00)
[2022-06-25] MEDS: METOPROLOL TARTRATE 25MG TABLET PO SCH ×2 (09:00→23:04)
[2022-06-25] MEDS: MIDODRINE HCL 2.5MG TABLET PO SCH ×4 (09:00→18:11)
[2022-06-25] MEDS: IBUPROFEN 600MG TABLET PO SCH (09:00)
[2022-06-25] MEDS: APIXABAN 5 MG TABLET PO SCH (09:00)
[2022-06-25] MEDS: PREDNISONE 20MG TABLET PO SCH (09:00)
[2022-06-25] MEDS: FUROSEMIDE 40MG/4ML VIAL IVP SCH ×2 (09:59→23:03)
[2022-06-25] MEDS ORDERED: PROPOFOL 200MG/20ML VIAL IV ONE (14:17)
[2022-06-25] MEDS ORDERED: EPHEDRINE SULFATE 50MG/ML VIAL ONE (14:17)
[2022-06-25] MEDS ORDERED: GLYCOPYRROLATE 0.2 MG/ML 2ML VIAL ONE (14:18)
[2022-06-25] MEDS ORDERED: FENTANYL CITRATE/PF 50MCG/ML 2ML VIAL ONE (14:19)
[2022-06-25] MEDS ORDERED: LIDOCAINE HCL 1% 20ML VIAL (Pyxis) INJ ONE (14:47)
[2022-06-25] MEDS ORDERED: TETRACAINE/BENZOCAINE/BUTAMBEN 20 GM SPRAY MM ONE (15:32)
[2022-06-25] MEDS ORDERED: LIDOCAINE 2% 6ML GLYDO MM ONE (15:35)
[2022-06-25] MEDS ORDERED: AMIODARONE HCL 50MG/ML 3ML VIAL IV ONE ×2 (15:46→15:47)
[2022-06-25] MEDS ORDERED: ENOXAPARIN 150MG/ML SYR SUBCUT NR (16:30)
[2022-06-25] MEDS: DIGOXIN 125MCG TABLET PO SCH (18:12)
[2022-06-25] MEDS: DILTIAZEM HCL 125 MG in DEXT 5% WATER 100 ML IV PRN (23:06)
[2022-06-26] VITALS (71 sets, daily range): BP systolic 83–154; BP diastolic 30–116
[2022-06-26] MEDS: DILTIAZEM HCL 90MG TABLET PO SCH ×4 (01:50→17:57)
[2022-06-26 06:50] LABS: CHLORIDE 100 mEq/L (98-107)
[2022-06-26] MEDS ORDERED: ENOXAPARIN 150MG/ML SYR SUBCUT NR (07:00)
[2022-06-26 07:24] LABS: HEMATOCRIT. 35.2 % (42.0-52.0); HEMOGLOBIN. 11.2 g/dL (14.0-18.0); MEAN CORPUSCULAR HEMOGLOBIN 28.3 pg (28.0-32.0); MEAN CORPUSCULAR VOLUME 89.5 fL (80.0-94.0); MEAN PLATELET VOLUME 8.7 fl (7.4-10.4); PLATELET 237 x1000/uL (130-400); RED BLOOD CELL COUNT 3.94 mill/uL (4.7-6.1); RED CELL DISTRIBUTION WIDTH 19.1 % (11.6-14.6)
[2022-06-26] MEDS: INSULIN LISPRO 100 UNITS/ML SUBCUT SCH ×4 (07:43→21:00)
[2022-06-26] MEDS: BLOOD SUGAR DIAGNOSTIC STRIP TEST SCH ×4 (07:43→21:00)
[2022-06-26] MEDS ORDERED: DEXTROSE 50% WATER 50ML SYRINGE IV PRN (07:45)
[2022-06-26] MEDS: IBUPROFEN 600MG TABLET PO SCH ×3 (09:00→19:04)
[2022-06-26] MEDS ORDERED: ENOXAPARIN 150MG/ML SYR SUBCUT SCH (09:00)
[2022-06-26 09:04] LABS: INR 1.2; PROTHROMBIN TIME 12.4 sec (9.6-11.0)
[2022-06-26] MEDS: FUROSEMIDE 40MG/4ML VIAL IVP SCH (09:34)
[2022-06-26] MEDS: GABAPENTIN 300MG CAPSULE PO SCH ×3 (09:35→17:00)
[2022-06-26] MEDS: METOPROLOL TARTRATE 25MG TABLET PO SCH ×2 (09:35→21:00)
[2022-06-26] MEDS: ASPIRIN 81MG TABLET PO SCH (09:36)
[2022-06-26] MEDS: DOCUSATE SODIUM 250MG CAPSULE PO SCH ×2 (09:36→17:56)
[2022-06-26] MEDS: PREDNISONE 20MG TABLET PO SCH (09:38)
[2022-06-26] MEDS: MIDODRINE HCL 2.5MG TABLET PO SCH ×2 (13:00→17:58)
[2022-06-26 16:32] LABS: PLATELET ESTIMATE NORMAL
[2022-06-26] MEDS: DIGOXIN 125MCG TABLET PO SCH (18:08)
[2022-06-26] MEDS: DILTIAZEM HCL 125 MG in DEXT 5% WATER 100 ML IV PRN (18:29)
[2022-06-27] VITALS (32 sets, daily range): BP systolic 71–149; BP diastolic 34–92
[2022-06-27] MEDS: DILTIAZEM HCL 90MG TABLET PO SCH ×4 (00:30→17:49)
[2022-06-27] MEDS: ENOXAPARIN 150MG/ML SYR SUBCUT SCH ×3 (00:31→22:23)
[2022-06-27] MEDS: FUROSEMIDE 40MG/4ML VIAL IVP SCH ×3 (00:32→22:21)
[2022-06-27] MEDS: BLOOD SUGAR DIAGNOSTIC STRIP TEST SCH ×4 (07:50→21:00)
[2022-06-27] MEDS: DILTIAZEM HCL 125 MG in DEXT 5% WATER 100 ML IV PRN ×2 (07:58→17:51)
[2022-06-27] MEDS: INSULIN LISPRO 100 UNITS/ML SUBCUT SCH ×4 (08:20→21:00)
[2022-06-27] MEDS: METOPROLOL TARTRATE 25MG TABLET PO SCH ×2 (09:00→22:22)
[2022-06-27] MEDS: ASPIRIN 81MG TABLET PO SCH (09:11)
[2022-06-27] MEDS: GABAPENTIN 300MG CAPSULE PO SCH ×3 (09:11→16:35)
[2022-06-27] MEDS: DOCUSATE SODIUM 250MG CAPSULE PO SCH ×2 (09:11→16:35)
[2022-06-27] MEDS: PREDNISONE 20MG TABLET PO SCH (09:14)
[2022-06-27] MEDS: MIDODRINE HCL 2.5MG TABLET PO SCH ×3 (09:19→16:35)
[2022-06-27] MEDS ORDERED: IOHEXOL-350 100 ML BOTTLE ONE (13:06)
[2022-06-27] MEDS: IBUPROFEN 600MG TABLET PO SCH (16:34)
[2022-06-27] MEDS: DIGOXIN 125MCG TABLET PO SCH (17:49)
[2022-06-27 18:34] LABS: CLARITY URINE CLEAR (CLEAR); COLOR URINE YELLOW (YELLOW); KETONES URINE NEGATIVE (NEGATIVE); LEUKOCYTE ESTERASE URINE NEGATIVE (NEGATIVE); NITRITE URINE NEGATIVE (NEGATIVE); OCCULT BLOOD URINE NEGATIVE (NEGATIVE); PH URINE 5.5 (4.5-8.0); PROTEIN URINE NEGATIVE (NEGATIVE); SPECIFIC GRAVITY URINE 1.058 (1.005-1.030)
[2022-06-27] MEDS ORDERED: CEFTRIAXONE 2 G PREMIX 50 ML IV SCH (19:15)
[2022-06-27] MEDS ORDERED: CHLORHEXIDINE GLUCONATE 4% EXTERNAL USE TOP SCH (21:00)
[2022-06-27] MEDS: CEFTRIAXONE 2 G in DEXTROSE 5% WATER 50 ML IV SCH (22:18)
[2022-06-27] MEDS: AMIODARONE HCL 200 MG TABLET PO SCH (22:22)
[2022-06-28] VITALS (52 sets, daily range): BP systolic 61–176; BP diastolic 31–102
[2022-06-28 06:22] LABS: HEMATOCRIT. 34.3 % (42.0-52.0); HEMOGLOBIN. 11.1 g/dL (14.0-18.0); MEAN CORPUSCULAR HEMOGLOBIN 28.3 pg (28.0-32.0); MEAN CORPUSCULAR VOLUME 87.4 fL (80.0-94.0); MEAN PLATELET VOLUME 8.2 fl (7.4-10.4); PLATELET 312 x1000/uL (130-400); RED BLOOD CELL COUNT 3.92 mill/uL (4.7-6.1); RED CELL DISTRIBUTION WIDTH 18.6 % (11.6-14.6)
[2022-06-28] MEDS: DILTIAZEM HCL 90MG TABLET PO SCH ×4 (07:02→17:36)
[2022-06-28] MEDS: BLOOD SUGAR DIAGNOSTIC STRIP TEST SCH ×4 (07:50→20:42)
[2022-06-28] MEDS: PREDNISONE 20MG TABLET PO SCH (10:01)
[2022-06-28] MEDS: ASPIRIN 81MG TABLET PO SCH (10:01)
[2022-06-28] MEDS: AMIODARONE HCL 200 MG TABLET PO SCH ×2 (10:01→20:56)
[2022-06-28] MEDS: IBUPROFEN 600MG TABLET PO SCH ×2 (10:02→17:37)
[2022-06-28] MEDS: METOPROLOL TARTRATE 25MG TABLET PO SCH (10:02)
[2022-06-28] MEDS: GABAPENTIN 300MG CAPSULE PO SCH ×3 (10:02→17:36)
[2022-06-28] MEDS: ENOXAPARIN 150MG/ML SYR SUBCUT SCH ×2 (10:03→20:56)
[2022-06-28] MEDS: FUROSEMIDE 40MG/4ML VIAL IVP SCH ×2 (10:03→20:56)
[2022-06-28] MEDS: MIDODRINE HCL 2.5MG TABLET PO SCH ×3 (10:03→17:36)
[2022-06-28] MEDS: DOCUSATE SODIUM 250MG CAPSULE PO SCH ×2 (10:04→16:08)
[2022-06-28] MEDS: DILTIAZEM HCL 125 MG in DEXT 5% WATER 100 ML IV PRN (10:04)
[2022-06-28] MEDS: INSULIN LISPRO 100 UNITS/ML SUBCUT SCH ×4 (10:05→20:57)
[2022-06-28 11:09] LABS: BG BASE EXCESS 4.7 mmol/L (-2.0-2.0); BG CARBOXYHEMOGLOBIN 1.3 % (0.5-1.5); BG DEOXYHEMOGLOBIN 11.1 % (0.0-5.0); BG FRACTION INSPIRED OXYGEN 44; BG HCO3 ACT 29.5 mmol/L (22.0-26.0); BG METHEMOGLOBIN 0.2 % (0.0-1.5); BG OXYGEN SATURATION 88.7 % (92.0-98.5); BG OXYHEMOGLOBIN 87.4 % (94.0-97.0); BG PCO2 44.6 mmHg (35.0-45.0); BG PH 7.438 (7.350-7.450); BG PO2 57.8 mmHg (75.0-100.0); BG SAMPLE SITE RIGHT RADIAL; BG TOTAL HEMOGLOBIN 12.3 g/dL (12.0-18.0); BG VENT MODE NASAL CANNULA
[2022-06-28 13:48] LABS: PLATELET ESTIMATE NORMAL
[2022-06-28] MEDS: DIGOXIN 125MCG TABLET PO SCH (17:36)
[2022-06-28] MEDS: CEFTRIAXONE 2 G in DEXTROSE 5% WATER 50 ML IV SCH (20:57)
[2022-06-29] VITALS (89 sets, daily range): BP systolic 46–177; BP diastolic 23–125
[2022-06-29] MEDS: DILTIAZEM HCL 90MG TABLET PO SCH ×6 (00:11→23:25)
[2022-06-29] MEDS: BLOOD SUGAR DIAGNOSTIC STRIP TEST SCH ×4 (07:50→20:27)
[2022-06-29] MEDS: INSULIN LISPRO 100 UNITS/ML SUBCUT SCH ×4 (08:20→20:40)
[2022-06-29] MEDS: FUROSEMIDE 40MG/4ML VIAL IVP SCH ×2 (08:50→20:39)
[2022-06-29] MEDS: DOCUSATE SODIUM 250MG CAPSULE PO SCH ×2 (08:50→15:36)
[2022-06-29] MEDS: GABAPENTIN 300MG CAPSULE PO SCH ×3 (08:50→17:14)
[2022-06-29] MEDS: AMIODARONE HCL 200 MG TABLET PO SCH ×2 (08:50→20:39)
[2022-06-29] MEDS: MIDODRINE HCL 2.5MG TABLET PO SCH ×3 (08:51→17:15)
[2022-06-29] MEDS: ASPIRIN 81MG TABLET PO SCH (08:51)
[2022-06-29] MEDS: IBUPROFEN 600MG TABLET PO SCH ×2 (08:51→17:15)
[2022-06-29] MEDS: PREDNISONE 20MG TABLET PO SCH (08:51)
[2022-06-29] MEDS: ENOXAPARIN 150MG/ML SYR SUBCUT SCH ×2 (08:52→20:39)
[2022-06-29] MEDS: SERTRALINE HCL 25MG TABLET PO SCH (13:17)
[2022-06-29] MEDS: DIGOXIN 125MCG TABLET PO SCH (17:15)
[2022-06-29] MEDS: CEFTRIAXONE 2 G in DEXTROSE 5% WATER 50 ML IV SCH (20:46)
[2022-06-29] MEDS: ZOLPIDEM TARTRATE 5MG TABLET PO PRN (23:25)
[2022-06-30] VITALS (79 sets, daily range): BP systolic 47–159; BP diastolic 15–106
[2022-06-30] MEDS: DILTIAZEM HCL 125 MG in DEXT 5% WATER 100 ML IV PRN (03:18)
[2022-06-30] MEDS: DILTIAZEM HCL 90MG TABLET PO SCH ×3 (05:59→18:17)
[2022-06-30] MEDS: BLOOD SUGAR DIAGNOSTIC STRIP TEST SCH ×4 (07:50→21:00)
[2022-06-30] MEDS: INSULIN LISPRO 100 UNITS/ML SUBCUT SCH ×4 (08:20→23:08)
[2022-06-30] MEDS: DOCUSATE SODIUM 250MG CAPSULE PO SCH ×2 (09:18→18:15)
[2022-06-30] MEDS: AMIODARONE HCL 200 MG TABLET PO SCH ×2 (09:18→22:40)
[2022-06-30] MEDS: GABAPENTIN 300MG CAPSULE PO SCH ×3 (09:18→18:15)
[2022-06-30] MEDS: IBUPROFEN 600MG TABLET PO SCH ×2 (09:18→18:15)
[2022-06-30] MEDS: PREDNISONE 20MG TABLET PO SCH (09:18)
[2022-06-30] MEDS: ASPIRIN 81MG TABLET PO SCH (09:18)
[2022-06-30] MEDS: FUROSEMIDE 40MG/4ML VIAL IVP SCH ×2 (09:18→22:40)
[2022-06-30] MEDS: SERTRALINE HCL 25MG TABLET PO SCH (09:18)
[2022-06-30] MEDS: MIDODRINE HCL 2.5MG TABLET PO SCH ×3 (09:18→18:15)
[2022-06-30] MEDS: ENOXAPARIN 150MG/ML SYR SUBCUT SCH ×2 (09:19→22:43)
[2022-06-30] MEDS: DIGOXIN 125MCG TABLET PO SCH (18:15)
[2022-06-30] MEDS: CEFTRIAXONE 2 G in DEXTROSE 5% WATER 50 ML IV SCH (22:39)
[2022-07-01] VITALS (74 sets, daily range): BP systolic 47–188; BP diastolic 19–103
[2022-07-01] MEDS: DILTIAZEM HCL 90MG TABLET PO SCH ×5 (00:25→23:03)
[2022-07-01] MEDS: BLOOD SUGAR DIAGNOSTIC STRIP TEST SCH ×4 (07:50→21:01)
[2022-07-01] MEDS: INSULIN LISPRO 100 UNITS/ML SUBCUT SCH ×4 (08:20→21:35)
[2022-07-01] MEDS: ASPIRIN 81MG TABLET PO SCH (09:39)
[2022-07-01] MEDS: PREDNISONE 20MG TABLET PO SCH (09:40)
[2022-07-01] MEDS: IBUPROFEN 600MG TABLET PO SCH ×2 (09:40→17:18)
[2022-07-01] MEDS: DOCUSATE SODIUM 250MG CAPSULE PO SCH ×2 (09:40→17:17)
[2022-07-01] MEDS: SERTRALINE HCL 25MG TABLET PO SCH (09:40)
[2022-07-01] MEDS: MIDODRINE HCL 2.5MG TABLET PO SCH (09:40)
[2022-07-01] MEDS: GABAPENTIN 300MG CAPSULE PO SCH ×3 (09:40→17:18)
[2022-07-01] MEDS: ENOXAPARIN 150MG/ML SYR SUBCUT SCH ×2 (09:41→21:33)
[2022-07-01] MEDS: FUROSEMIDE 40MG/4ML VIAL IVP SCH ×2 (09:41→21:33)
[2022-07-01] MEDS: AMIODARONE HCL 200 MG TABLET PO SCH ×2 (09:41→21:34)
[2022-07-01] MEDS: MIDODRINE HCL 5MG TABLET PO SCH ×2 (12:54→17:18)
[2022-07-01] MEDS: DIGOXIN 125MCG TABLET PO SCH (17:18)
[2022-07-01] MEDS: CEFTRIAXONE 2 G in DEXTROSE 5% WATER 50 ML IV SCH (21:33)
[2022-07-01] MEDS: CARVEDILOL 6.25 MG TABLET PO SCH (21:34)
[2022-07-01] MEDS: ZOLPIDEM TARTRATE 5MG TABLET PO PRN (23:03)
[2022-07-02] VITALS (16 sets, daily range): BP systolic 80–132; BP diastolic 52–89
[2022-07-02] MEDS: DILTIAZEM HCL 90MG TABLET PO SCH ×2 (05:04→11:31)
[2022-07-02 05:49] LABS: HEMATOCRIT. 34.9 % (42.0-52.0); HEMOGLOBIN. 11.2 g/dL (14.0-18.0); MEAN CORPUSCULAR HEMOGLOBIN 28.3 pg (28.0-32.0); MEAN CORPUSCULAR VOLUME 88.5 fL (80.0-94.0); MEAN PLATELET VOLUME 7.9 fl (7.4-10.4); PLATELET 401 x1000/uL (130-400); RED BLOOD CELL COUNT 3.94 mill/uL (4.7-6.1)
[2022-07-02] MEDS: INSULIN LISPRO 100 UNITS/ML SUBCUT SCH ×2 (08:20→13:05)
[2022-07-02] MEDS ORDERED: MIDO5TAB4 PO (08:32)
[2022-07-02] MEDS ORDERED: DIGO-26 PO (08:32)
[2022-07-02] MEDS ORDERED: COR12 PO (08:32)
[2022-07-02] MEDS ORDERED: SERT25TA74 PO (08:32)
[2022-07-02] MEDS ORDERED: DILT180C66 MT (08:33)
[2022-07-02] MEDS: BLOOD SUGAR DIAGNOSTIC STRIP TEST SCH ×2 (08:43→13:05)
[2022-07-02] MEDS: CARVEDILOL 6.25 MG TABLET PO SCH (08:58)
[2022-07-02] MEDS: ASPIRIN 81MG TABLET PO SCH (08:58)
[2022-07-02] MEDS: DOCUSATE SODIUM 250MG CAPSULE PO SCH (08:58)
[2022-07-02] MEDS: PREDNISONE 20MG TABLET PO SCH (08:58)
[2022-07-02] MEDS: GABAPENTIN 300MG CAPSULE PO SCH ×2 (08:58→13:05)
[2022-07-02] MEDS: MIDODRINE HCL 5MG TABLET PO SCH ×2 (08:59→13:05)
[2022-07-02] MEDS: ENOXAPARIN 150MG/ML SYR SUBCUT SCH (09:00)
[2022-07-02] MEDS ORDERED: SERTRALINE HCL 25MG TABLET PO SCH (09:00)
[2022-07-02] MEDS: AMIODARONE HCL 200 MG TABLET PO SCH (09:00)
[2022-07-02] MEDS: FUROSEMIDE 40MG/4ML VIAL IVP SCH (11:32)
[2022-07-02 13:13] LABS: NUCLEATED RED BLOOD CELLS 1 /100 WBC; PLATELET ESTIMATE NORMAL
== END 2022-07-02 15:08 | disposition home or self-care (01) | DRG 194 ==
LOC: ER 14:02 → MICUSO 18:51 → EDBEDREQ 18:52 → EDBEDREQTM 18:52 → EDBEDREQ 18:53 → 7WST 06-19 01:10 → CVICU 06-25 17:07
PROVIDERS: ADMIT Internal Medicine; ATTEND Internal Medicine
PROC: B245ZZ4 Ultrasonography of Left Heart, Transesophageal (ICD-10-PCS; principal; 2022-06-25)
PROC: 05H533Z Insertion of Infusion Device into Right Subclavian Vein, Percutaneous Approach (ICD-10-PCS; 2022-06-26)
PROC: B546ZZA Ultrasonography of Right Subclavian Vein, Guidance (ICD-10-PCS; 2022-06-26)
PROC: 0Y9N3ZZ Drainage of Left Foot, Percutaneous Approach (ICD-10-PCS; 2022-07-02)
DX: I11.0 Hypertensive heart disease with heart failure (principal); J96.20 Acute and chronic respiratory failure, unspecified whether with hypoxia or hypercapnia; A41.9 Sepsis, unspecified organism; G93.41 Metabolic encephalopathy; E11.52 Type 2 diabetes mellitus with diabetic peripheral angiopathy with gangrene; E66.2 Morbid (severe) obesity with alveolar hypoventilation; L03.115 Cellulitis of right lower limb; G81.94 Hemiplegia, unspecified affecting left nondominant side; I50.23 Acute on chronic systolic (congestive) heart failure; F33.1 Major depressive disorder, recurrent, moderate; I47.1 Supraventricular tachycardia; I42.0 Dilated cardiomyopathy; Z68.43 Body mass index [BMI] 50.0-59.9, adult; N17.9 Acute kidney failure, unspecified; J44.1 Chronic obstructive pulmonary disease with (acute) exacerbation; E78.00 Pure hypercholesterolemia, unspecified; S90.822A Blister (nonthermal), left foot, initial encounter; R26.89 Other abnormalities of gait and mobility; E03.9 Hypothyroidism, unspecified; I48.0 Paroxysmal atrial fibrillation; F17.210 Nicotine dependence, cigarettes, uncomplicated; N28.9 Disorder of kidney and ureter, unspecified; Z20.822 Contact with and (suspected) exposure to COVID-19; E11.22 Type 2 diabetes mellitus with diabetic chronic kidney disease; Z79.01 Long term (current) use of anticoagulants; Z91.14 Patient's other noncompliance with medication regimen; Z95.5 Presence of coronary angioplasty implant and graft; Z82.49 Family history of ischemic heart disease and other diseases of the circulatory system; Z88.8 Allergy status to other drugs, medicaments and biological substances; Z83.3 Family history of diabetes mellitus
CPT/HCPCS: 36415; 36573; 36600; 71045; 75635; 80048; 80053; 80061; 80162; 81003; 82375; 82805; 82962; 83036; 83735; 83880; 84145; 84443; 84484; 85025; 87426; 92960; 93005; 93312; 93923; 93970; 94640; 97116; 97162; 99291; C1725; C1893; J0282; J0696; J1160; J1650; J1815; J1940; J2270; J2704; J3010; J3490; J7060; J7512; Q9967

== ENCOUNTER 2022-07-03 14:08 | Inpatient (IN) | payer OTHER ==
[~2022-07-03] VITALS: Ht 162.6 cm; Wt 137.8 kg
[~2022-07-03 14:08] MED LIST changes: -ALBU6.7H3 INH; +ATOR10TA PO; -ATOR40TA70 PO; +CLOP-31 PO; +DIGO-26 PO; +DILT180C66 MT; -FLUT1DIS3 INH; -FURO-151 MT; -FURO-151 PO; +HYDR-4134 PO; -LEVO-65 MT; +LEVO50TA PO; +LISI-186 PO; -LOSA50TA41 MT; -METO2.5T2 MT; +MIDO5TAB4 PO; -POTA-205 MT; +SENN-257 PO
[2022-07-03 15:28] LABS: BG BASE EXCESS 2.9 mmol/L (-2.0-2.0); BG CARBOXYHEMOGLOBIN 1.5 % (0.5-1.5); BG DEOXYHEMOGLOBIN 10.8 % (0.0-5.0); BG FRACTION INSPIRED OXYGEN 24; BG HCO3 ACT 26.4 mmol/L (22.0-26.0); BG METHEMOGLOBIN 0.5 % (0.0-1.5); BG OXYHEMOGLOBIN 87.2 % (94.0-97.0); BG PCO2 36.7 mmHg (35.0-45.0); BG PH 7.474 (7.350-7.450); BG PO2 55.3 mmHg (75.0-100.0); BG SAMPLE SITE RIGHT RADIAL; BG TOTAL HEMOGLOBIN 14.1 g/dL (12.0-18.0); BG VENT MODE NASAL CANNULA
[2022-07-03 15:57] LABS: CHLORIDE 98 mEq/L (98-107)
[2022-07-03 16:07] LABS: HEMATOCRIT. 46.7 % (42.0-52.0); MEAN CORPUSCULAR HEMOGLOBIN 28.5 pg (28.0-32.0); MEAN CORPUSCULAR VOLUME 88.2 fL (80.0-94.0); MEAN PLATELET VOLUME 8.4 fl (7.4-10.4); PLATELET 443 x1000/uL (130-400); RED BLOOD CELL COUNT 5.29 mill/uL (4.7-6.1); RED CELL DISTRIBUTION WIDTH 19.8 % (11.6-14.6)
[2022-07-03] MEDS ORDERED: ASPIRIN 81MG TABLET PO NR (17:00)
[2022-07-03] MEDS ORDERED: CEFTRIAXONE 1 G PREMIX 50 ML IV NR (17:00)
[2022-07-03 18:04] LABS: PLATELET ESTIMATE INCREASED
[2022-07-03 19:02] LABS: CLARITY URINE CLEAR (CLEAR); COLOR URINE YELLOW (YELLOW); KETONES URINE NEGATIVE (NEGATIVE); LEUKOCYTE ESTERASE URINE NEGATIVE (NEGATIVE); NITRITE URINE NEGATIVE (NEGATIVE); OCCULT BLOOD URINE NEGATIVE (NEGATIVE); PROTEIN URINE TRACE (NEGATIVE); SPECIFIC GRAVITY URINE 1.016 (1.005-1.030); UROBILINOGEN URINE 0.2 E.U./dL (0.2-1.0)
[2022-07-04] VITALS (7 sets, daily range): BP systolic 100–134; BP diastolic 58–73
[2022-07-04] MEDS ORDERED: DEXTROSE 50% WATER 50ML SYRINGE IV PRN (03:30)
[2022-07-04] MEDS: INSULIN LISPRO 100 UNITS/ML SUBCUT SCH ×4 (05:47→20:34)
[2022-07-04] MEDS: BLOOD SUGAR DIAGNOSTIC STRIP TEST SCH ×4 (05:47→20:34)
[2022-07-04] MEDS: DILTIAZEM HCL 60MG TABLET PO SCH ×3 (05:47→21:53)
[2022-07-04] MEDS: LEVOTHYROXINE SODIUM 50MCG TABLET PO SCH (06:08)
[2022-07-04] MEDS: FUROSEMIDE 40MG TABLET PO SCH ×2 (06:17→18:14)
[2022-07-04] MEDS ORDERED: LISINOPRIL 5MG TABLET PO SCH (09:00)
[2022-07-04] MEDS: ASPIRIN 81MG TABLET PO SCH (10:30)
[2022-07-04] MEDS: CARVEDILOL 12.5MG TABLET PO SCH ×2 (10:31→21:54)
[2022-07-04] MEDS: CLOPIDOGREL 75MG TABLET PO SCH (10:31)
[2022-07-04] MEDS: FAMOTIDINE 20MG TABLET PO SCH (10:31)
[2022-07-04] MEDS: SERTRALINE HCL 25MG TABLET PO SCH (10:31)
[2022-07-04] MEDS ORDERED: APIXABAN 5 MG TABLET PO SCH (10:45)
[2022-07-04] MEDS ORDERED: ENOXAPARIN 150MG/ML SYR SUBCUT NR (14:00)
[2022-07-04] MEDS: DIGOXIN 125MCG TABLET PO SCH (18:14)
[2022-07-04] MEDS ORDERED: AMIODARONE HCL 200 MG TABLET PO SCH (21:00)
[2022-07-04 21:06] LABS: INR 1.1; PROTHROMBIN TIME 11.8 sec (9.6-11.0)
[2022-07-04] MEDS: IPRATROPIUM BROMIDE (0.02%) 0.5MG/2.5ML NEB HHN SCH (21:14)
[2022-07-04] MEDS: ATORVASTATIN CALCIUM 10MG TABLET PO SCH (21:52)
[2022-07-04] MEDS: ENOXAPARIN 150MG/ML SYR SUBCUT SCH (23:42)
[2022-07-05] MEDS: IPRATROPIUM BROMIDE (0.02%) 0.5MG/2.5ML NEB HHN SCH ×4 (01:01→21:39)
[2022-07-05 04:00] VITALS: BP 105/44
[2022-07-05] MEDS: DILTIAZEM HCL 60MG TABLET PO SCH ×3 (05:01→21:07)
[2022-07-05] MEDS: BLOOD SUGAR DIAGNOSTIC STRIP TEST SCH ×4 (05:11→20:47)
[2022-07-05] MEDS: LEVOTHYROXINE SODIUM 50MCG TABLET PO SCH (05:15)
[2022-07-05] MEDS: INSULIN LISPRO 100 UNITS/ML SUBCUT SCH ×4 (05:15→20:47)
[2022-07-05] MEDS: FUROSEMIDE 40MG TABLET PO SCH ×2 (05:15→18:43)
[2022-07-05 08:00] VITALS: BP 138/65
[2022-07-05] MEDS: AMIODARONE HCL 200 MG TABLET PO SCH (09:27)
[2022-07-05] MEDS: CLOPIDOGREL 75MG TABLET PO SCH (09:27)
[2022-07-05] MEDS: FAMOTIDINE 20MG TABLET PO SCH (09:27)
[2022-07-05] MEDS: CARVEDILOL 12.5MG TABLET PO SCH ×2 (09:27→21:00)
[2022-07-05] MEDS: SERTRALINE HCL 25MG TABLET PO SCH (09:27)
[2022-07-05] MEDS: ASPIRIN 81MG TABLET PO SCH (09:28)
[2022-07-05] MEDS: ACETAMINOPHEN 325MG TABLET PO PRN (10:32)
[2022-07-05 11:46] LABS: HEMOGLOBIN. 11.8 g/dL (14.0-18.0); MEAN CORPUSCULAR HEMOGLOBIN 28.4 pg (28.0-32.0); MEAN PLATELET VOLUME 7.9 fl (7.4-10.4); PLATELET 328 x1000/uL (130-400); RED BLOOD CELL COUNT 4.17 mill/uL (4.7-6.1); RED CELL DISTRIBUTION WIDTH 19.4 % (11.6-14.6)
[2022-07-05 12:00] VITALS: BP 129/68
[2022-07-05 13:40] LABS: PLATELET ESTIMATE NORMAL
[2022-07-05] MEDS: ENOXAPARIN 150MG/ML SYR SUBCUT SCH (13:43)
[2022-07-05 16:00] VITALS: BP 98/46
[2022-07-05] MEDS: DIGOXIN 125MCG TABLET PO SCH (18:43)
[2022-07-05 20:00] VITALS: BP 103/47
[2022-07-05] MEDS: ATORVASTATIN CALCIUM 10MG TABLET PO SCH (21:14)
[2022-07-06] VITALS: BP 123/65
[2022-07-06] MEDS: ENOXAPARIN 150MG/ML SYR SUBCUT SCH ×2 (00:01→12:00)
[2022-07-06] MEDS: IPRATROPIUM BROMIDE (0.02%) 0.5MG/2.5ML NEB HHN SCH ×4 (03:33→20:34)
[2022-07-06 04:00] VITALS: BP 122/59
[2022-07-06] MEDS: DILTIAZEM HCL 60MG TABLET PO SCH ×3 (05:01→20:42)
[2022-07-06] MEDS: FUROSEMIDE 40MG TABLET PO SCH ×2 (06:21→17:18)
[2022-07-06] MEDS: BLOOD SUGAR DIAGNOSTIC STRIP TEST SCH ×4 (06:21→20:42)
[2022-07-06] MEDS: LEVOTHYROXINE SODIUM 50MCG TABLET PO SCH (06:21)
[2022-07-06] MEDS: INSULIN LISPRO 100 UNITS/ML SUBCUT SCH ×4 (06:21→20:43)
[2022-07-06 08:05] VITALS: BP 102/58
[2022-07-06] MEDS: CARVEDILOL 12.5MG TABLET PO SCH ×2 (08:44→20:41)
[2022-07-06] MEDS: FAMOTIDINE 20MG TABLET PO SCH (08:45)
[2022-07-06] MEDS: AMIODARONE HCL 200 MG TABLET PO SCH (08:45)
[2022-07-06] MEDS: SERTRALINE HCL 25MG TABLET PO SCH (08:45)
[2022-07-06] MEDS: ASPIRIN 81MG TABLET PO SCH (08:45)
[2022-07-06] MEDS: CLOPIDOGREL 75MG TABLET PO SCH (08:45)
[2022-07-06] MEDS ORDERED: LIDOCAINE HCL 1% 30ML VIAL (10MG/ML) ONE (09:38)
[2022-07-06 12:00] VITALS: BP 115/64
[2022-07-06 16:00] VITALS: BP 112/64
[2022-07-06] MEDS: DIGOXIN 125MCG TABLET PO SCH (17:18)
[2022-07-06 20:00] VITALS: BP 117/45
[2022-07-06] MEDS: ATORVASTATIN CALCIUM 10MG TABLET PO SCH (20:38)
[2022-07-07] VITALS: BP 118/46
[2022-07-07] MEDS: IPRATROPIUM BROMIDE (0.02%) 0.5MG/2.5ML NEB HHN SCH ×4 (01:23→22:06)
[2022-07-07] MEDS: ACETAMINOPHEN 325MG TABLET PO PRN (03:23)
[2022-07-07 04:00] VITALS: BP 127/67
[2022-07-07] MEDS: BLOOD SUGAR DIAGNOSTIC STRIP TEST SCH ×4 (06:02→21:18)
[2022-07-07] MEDS: DILTIAZEM HCL 60MG TABLET PO SCH ×3 (06:02→21:17)
[2022-07-07] MEDS: LEVOTHYROXINE SODIUM 50MCG TABLET PO SCH (06:02)
[2022-07-07] MEDS: INSULIN LISPRO 100 UNITS/ML SUBCUT SCH ×4 (06:02→21:00)
[2022-07-07 08:00] VITALS: BP 100/57
[2022-07-07] MEDS: FAMOTIDINE 20MG TABLET PO SCH (08:15)
[2022-07-07] MEDS: FUROSEMIDE 40MG TABLET PO SCH ×3 (08:15→17:11)
[2022-07-07] MEDS: CLOPIDOGREL 75MG TABLET PO SCH (08:15)
[2022-07-07] MEDS: ASPIRIN 81MG TABLET PO SCH (08:15)
[2022-07-07] MEDS: SERTRALINE HCL 25MG TABLET PO SCH (08:15)
[2022-07-07] MEDS: AMIODARONE HCL 200 MG TABLET PO SCH (08:16)
[2022-07-07] MEDS: CARVEDILOL 12.5MG TABLET PO SCH ×2 (08:17→21:17)
[2022-07-07] MEDS: ENOXAPARIN 150MG/ML SYR SUBCUT SCH ×2 (11:47)
[2022-07-07 12:00] VITALS: BP 106/55
[2022-07-07 16:00] VITALS: BP 95/53
[2022-07-07] MEDS: DIGOXIN 125MCG TABLET PO SCH (17:11)
[2022-07-07 20:00] VITALS: BP 129/92
[2022-07-07] MEDS: ATORVASTATIN CALCIUM 10MG TABLET PO SCH (21:17)
[2022-07-08] VITALS: BP 115/52
[2022-07-08] MEDS: ENOXAPARIN 150MG/ML SYR SUBCUT SCH ×2 (00:15→12:00)
[2022-07-08] MEDS: IPRATROPIUM BROMIDE (0.02%) 0.5MG/2.5ML NEB HHN SCH ×4 (02:36→20:52)
[2022-07-08] MEDS: ACETAMINOPHEN 325MG TABLET PO PRN (03:21)
[2022-07-08 04:00] VITALS: BP 111/50
[2022-07-08] MEDS: BLOOD SUGAR DIAGNOSTIC STRIP TEST SCH ×4 (05:28→21:42)
[2022-07-08] MEDS: INSULIN LISPRO 100 UNITS/ML SUBCUT SCH ×4 (05:28→21:00)
[2022-07-08] MEDS: LEVOTHYROXINE SODIUM 50MCG TABLET PO SCH (05:32)
[2022-07-08] MEDS: DILTIAZEM HCL 60MG TABLET PO SCH ×3 (05:33→21:42)
[2022-07-08 07:23] LABS: HEMATOCRIT. 37.2 % (42.0-52.0); HEMOGLOBIN. 11.8 g/dL (14.0-18.0); MEAN CORPUSCULAR HEMOGLOBIN 28.2 pg (28.0-32.0); MEAN CORPUSCULAR VOLUME 88.7 fL (80.0-94.0); MEAN PLATELET VOLUME 8.3 fl (7.4-10.4); PLATELET 310 x1000/uL (130-400); RED CELL DISTRIBUTION WIDTH 19.1 % (11.6-14.6)
[2022-07-08 08:00] VITALS: BP 119/53
[2022-07-08] MEDS: CARVEDILOL 12.5MG TABLET PO SCH ×2 (08:28→21:42)
[2022-07-08] MEDS: ASPIRIN 81MG TABLET PO SCH (08:28)
[2022-07-08] MEDS: SERTRALINE HCL 25MG TABLET PO SCH (08:28)
[2022-07-08] MEDS: CLOPIDOGREL 75MG TABLET PO SCH (08:28)
[2022-07-08] MEDS: FUROSEMIDE 40MG TABLET PO SCH ×3 (08:28→17:08)
[2022-07-08] MEDS: FAMOTIDINE 20MG TABLET PO SCH (08:28)
[2022-07-08] MEDS: AMIODARONE HCL 200 MG TABLET PO SCH (08:28)
[2022-07-08 11:20] LABS: PLATELET ESTIMATE NORMAL
[2022-07-08 12:00] VITALS: BP 120/66
[2022-07-08] MEDS ORDERED: HYDR-4001 MT (14:02)
[2022-07-08] MEDS ORDERED: APIX5TAB MT (14:02)
[2022-07-08 16:00] VITALS: BP 122/60
[2022-07-08] MEDS: DIGOXIN 125MCG TABLET PO SCH (17:08)
[2022-07-08 20:00] VITALS: BP 117/54
[2022-07-08] MEDS: ATORVASTATIN CALCIUM 10MG TABLET PO SCH (21:42)
[2022-07-09] VITALS: BP 118/55
[2022-07-09] MEDS: ENOXAPARIN 150MG/ML SYR SUBCUT SCH ×3 (00:31→22:27)
[2022-07-09] MEDS: IPRATROPIUM BROMIDE (0.02%) 0.5MG/2.5ML NEB HHN SCH ×3 (02:36→15:00)
[2022-07-09 04:00] VITALS: BP 107/46
[2022-07-09] MEDS: BLOOD SUGAR DIAGNOSTIC STRIP TEST SCH ×4 (05:57→20:06)
[2022-07-09] MEDS: INSULIN LISPRO 100 UNITS/ML SUBCUT SCH ×4 (05:57→20:06)
[2022-07-09] MEDS: DILTIAZEM HCL 60MG TABLET PO SCH ×3 (05:58→20:22)
[2022-07-09] MEDS: LEVOTHYROXINE SODIUM 50MCG TABLET PO SCH (05:58)
[2022-07-09 08:00] VITALS: BP 110/50
[2022-07-09] MEDS: CARVEDILOL 12.5MG TABLET PO SCH ×2 (09:00→20:22)
[2022-07-09] MEDS: AMIODARONE HCL 200 MG TABLET PO SCH (09:16)
[2022-07-09] MEDS: ASPIRIN 81MG TABLET PO SCH (09:16)
[2022-07-09] MEDS: FAMOTIDINE 20MG TABLET PO SCH (09:16)
[2022-07-09] MEDS: FUROSEMIDE 40MG TABLET PO SCH ×3 (09:16→18:41)
[2022-07-09] MEDS: SERTRALINE HCL 25MG TABLET PO SCH (09:16)
[2022-07-09] MEDS: CLOPIDOGREL 75MG TABLET PO SCH (09:16)
[2022-07-09 12:00] VITALS: BP 106/56
[2022-07-09] MEDS: ACETAMINOPHEN 325MG TABLET PO PRN ×2 (15:18→21:27)
[2022-07-09 16:00] VITALS: BP 122/57
[2022-07-09] MEDS: DIGOXIN 125MCG TABLET PO SCH (18:41)
[2022-07-09 20:00] VITALS: BP 106/47
[2022-07-09] MEDS: ATORVASTATIN CALCIUM 10MG TABLET PO SCH (20:38)
[2022-07-10] VITALS: BP 116/54
[2022-07-10 04:00] VITALS: BP 103/76
[2022-07-10] MEDS: DILTIAZEM HCL 60MG TABLET PO SCH ×3 (05:51→20:44)
[2022-07-10] MEDS: LEVOTHYROXINE SODIUM 50MCG TABLET PO SCH (05:51)
[2022-07-10] MEDS: BLOOD SUGAR DIAGNOSTIC STRIP TEST SCH ×4 (06:43→20:35)
[2022-07-10 08:00] VITALS: BP 111/57
[2022-07-10] MEDS: INSULIN LISPRO 100 UNITS/ML SUBCUT SCH ×4 (08:10→20:35)
[2022-07-10] MEDS: CLOPIDOGREL 75MG TABLET PO SCH (09:57)
[2022-07-10] MEDS: AMIODARONE HCL 200 MG TABLET PO SCH (09:57)
[2022-07-10] MEDS: ASPIRIN 81MG TABLET PO SCH (09:57)
[2022-07-10] MEDS: FUROSEMIDE 40MG TABLET PO SCH ×3 (09:58→17:47)
[2022-07-10] MEDS: FAMOTIDINE 20MG TABLET PO SCH (09:58)
[2022-07-10] MEDS: SERTRALINE HCL 25MG TABLET PO SCH (10:03)
[2022-07-10] MEDS: CARVEDILOL 12.5MG TABLET PO SCH ×2 (10:03→20:44)
[2022-07-10 12:00] VITALS: BP 104/63
[2022-07-10] MEDS: ENOXAPARIN 150MG/ML SYR SUBCUT SCH (12:00)
[2022-07-10 16:00] VITALS: BP 98/63
[2022-07-10 17:06] LABS: INR 1.1; PROTHROMBIN TIME 11.9 sec (9.6-11.0)
[2022-07-10] MEDS: DIGOXIN 125MCG TABLET PO SCH (17:38)
[2022-07-10 20:00] VITALS: BP 117/74
[2022-07-10] MEDS: ACETAMINOPHEN 325MG TABLET PO PRN (20:43)
[2022-07-10] MEDS: ATORVASTATIN CALCIUM 10MG TABLET PO SCH (20:48)
[2022-07-11] VITALS: BP 120/64
[2022-07-11 04:00] VITALS: BP 113/50
[2022-07-11] MEDS: DILTIAZEM HCL 60MG TABLET PO SCH ×2 (06:36→13:11)
[2022-07-11] MEDS: BLOOD SUGAR DIAGNOSTIC STRIP TEST SCH ×2 (06:37→12:36)
[2022-07-11] MEDS: LEVOTHYROXINE SODIUM 50MCG TABLET PO SCH (06:37)
[2022-07-11 08:00] VITALS: BP 129/79
[2022-07-11] MEDS: INSULIN LISPRO 100 UNITS/ML SUBCUT SCH ×2 (08:10→12:37)
[2022-07-11] MEDS: FAMOTIDINE 20MG TABLET PO SCH (09:49)
[2022-07-11] MEDS: ASPIRIN 81MG TABLET PO SCH (09:49)
[2022-07-11] MEDS: SERTRALINE HCL 25MG TABLET PO SCH (09:49)
[2022-07-11] MEDS: CLOPIDOGREL 75MG TABLET PO SCH (09:49)
[2022-07-11] MEDS: FUROSEMIDE 40MG TABLET PO SCH ×2 (09:49→13:11)
[2022-07-11] MEDS: CARVEDILOL 12.5MG TABLET PO SCH (09:49)
[2022-07-11] MEDS: AMIODARONE HCL 200 MG TABLET PO SCH (09:49)
[2022-07-11 12:00] VITALS: BP 110/68
[2022-07-11] MEDS: ENOXAPARIN 150MG/ML SYR SUBCUT SCH ×2 (13:11)
[2022-07-11 13:32] VITALS: BP 110/68
== END 2022-07-11 17:32 | disposition home or self-care (01) | DRG 133 ==
LOC: ER 14:08 → MICUSO 19:07 → EDBEDREQ 19:16 → EDBEDREQTM 19:16 → 7EST 07-04 03:17 → 7WST 07-09 08:42
PROVIDERS: ADMIT Internal Medicine; ATTEND Internal Medicine
PROC: 02HV33Z Insertion of Infusion Device into Superior Vena Cava, Percutaneous Approach (ICD-10-PCS; principal; 2022-07-06)
PROC: B5181ZA Fluoroscopy of Superior Vena Cava using Low Osmolar Contrast, Guidance (ICD-10-PCS; 2022-07-06)
DX: J96.21 Acute and chronic respiratory failure with hypoxia (principal); I50.23 Acute on chronic systolic (congestive) heart failure; I96 Gangrene, not elsewhere classified; E11.52 Type 2 diabetes mellitus with diabetic peripheral angiopathy with gangrene; I42.0 Dilated cardiomyopathy; N17.9 Acute kidney failure, unspecified; I13.0 Hypertensive heart and chronic kidney disease with heart failure and stage 1 through stage 4 chronic kidney disease, or unspecified chronic kidney disease; I48.19 Other persistent atrial fibrillation; L97.529 Non-pressure chronic ulcer of other part of left foot with unspecified severity; I48.0 Paroxysmal atrial fibrillation; Z20.822 Contact with and (suspected) exposure to COVID-19; E66.01 Morbid (severe) obesity due to excess calories; E78.5 Hyperlipidemia, unspecified; G47.33 Obstructive sleep apnea (adult) (pediatric); J44.9 Chronic obstructive pulmonary disease, unspecified; E03.9 Hypothyroidism, unspecified; I25.10 Atherosclerotic heart disease of native coronary artery without angina pectoris; F17.200 Nicotine dependence, unspecified, uncomplicated; N18.9 Chronic kidney disease, unspecified; E11.22 Type 2 diabetes mellitus with diabetic chronic kidney disease; Z99.81 Dependence on supplemental oxygen; Z91.14 Patient's other noncompliance with medication regimen; Z82.49 Family history of ischemic heart disease and other diseases of the circulatory system; Z91.199 Patient's noncompliance with other medical treatment and regimen due to unspecified reason; Z95.5 Presence of coronary angioplasty implant and graft; Z79.899 Other long term (current) drug therapy; Z83.3 Family history of diabetes mellitus; Z79.4 Long term (current) use of insulin
CPT/HCPCS: 36415; 36573; 36600; 71045; 80048; 80053; 80162; 81003; 82375; 82805; 82962; 83036; 83735; 83880; 84145; 84484; 85025; 87426; 93005; 93922; 94640; 97166; 99285; C1725; C1760; C1893; J0696; J1650; J1815; J3490

== ENCOUNTER 2022-08-13 12:15 | Inpatient (IN) | payer MEDICAID ==
[~2022-08-13] VITALS: Ht 162.6 cm; Wt 136.1 kg
[~2022-08-13 12:15] MED LIST changes: +APIX5TAB MT; -DIGO-26 PO; +DIGO-34 PO; +HYDR-4001 MT
[2022-08-13] MEDS ORDERED: FUROSEMIDE 40MG TABLET PO ONE (16:45)
[2022-08-13 17:12] LABS: HEMATOCRIT. 29.8 % (42.0-52.0); HEMOGLOBIN. 9.5 g/dL (14.0-18.0); MEAN CORPUSCULAR HEMOGLOBIN 26.7 pg (28.0-32.0); MEAN CORPUSCULAR VOLUME 84.1 fL (80.0-94.0); MEAN PLATELET VOLUME 7.9 fl (7.4-10.4); PLATELET 256 x1000/uL (130-400); RED BLOOD CELL COUNT 3.55 mill/uL (4.7-6.1); RED CELL DISTRIBUTION WIDTH 19.4 % (11.6-14.6)
[2022-08-13 17:26] LABS: CHLORIDE 106 mEq/L (98-107)
[2022-08-13] MEDS ORDERED: DILTIAZEM HCL 180MG CAPSULE CD 24HR PO ONE (18:30)
[2022-08-13 18:32] LABS: PLATELET ESTIMATE NORMAL
[2022-08-13] MEDS ORDERED: FUROSEMIDE 40MG/4ML VIAL IV ONE (22:00)
[2022-08-13] MEDS ORDERED: ASPIRIN 81MG TABLET PO ONE (22:00)
[2022-08-13] MEDS: DILTIAZEM HCL 5MG/ML 5ML VIAL IV PRN ×2 (22:14→22:34)
[2022-08-13] MEDS: METOPROLOL TARTRATE 50MG TABLET PO SCH (23:23)
[2022-08-13] MEDS: NITROGLYCERIN OINT 1GM/INCH UDPKT TD ONE ×2 (23:24→23:55)
[2022-08-13] MEDS ORDERED: AMIODARONE HCL 50MG/ML 3ML VIAL IV NR (23:45)
[2022-08-13] MEDS ORDERED: AMIODARONE HCL 150 MG in DEXT 5% WATER 100 ML IV NR (23:45)
[2022-08-13] MEDS ORDERED: AMIODARONE HCL 900 MG in DEXT 5% WATER 500 ML IV SCH (23:45)
[2022-08-14] VITALS (101 sets, daily range): BP systolic 42–212; BP diastolic 16–115
[2022-08-14 02:41] LABS: BG BASE EXCESS -9.4 mmol/L (-2.0-2.0); BG CARBOXYHEMOGLOBIN 0.4 % (0.5-1.5); BG DEOXYHEMOGLOBIN 4.7 % (0.0-5.0); BG FRACTION INSPIRED OXYGEN 28; BG HCO3 ACT 12.9 mmol/L (22.0-26.0); BG METHEMOGLOBIN 0.2 % (0.0-1.5); BG OXYGEN SATURATION 95.3 % (92.0-98.5); BG OXYHEMOGLOBIN 94.7 % (94.0-97.0); BG PCO2 19.8 mmHg (35.0-45.0); BG PH 7.433 (7.350-7.450); BG SAMPLE SITE LEFT RADIAL; BG TOTAL HEMOGLOBIN 10.9 g/dL (12.0-18.0); BG VENT MODE NASAL CANNULA
[2022-08-14] MEDS ORDERED: MORPHINE SULFATE 2 MG/ML CPJ (NOT FOR IM USE) IV PRN (04:30)
[2022-08-14] MEDS: NITROGLYCERIN OINT 1GM/INCH UDPKT TD SCH ×3 (05:23→23:15)
[2022-08-14 06:01] LABS: HEMATOCRIT. 34.7 % (42.0-52.0); HEMOGLOBIN. 10.4 g/dL (14.0-18.0); MEAN CORPUSCULAR HEMOGLOBIN 26.5 pg (28.0-32.0); MEAN CORPUSCULAR VOLUME 88.5 fL (80.0-94.0); MEAN PLATELET VOLUME 8.3 fl (7.4-10.4); PLATELET 259 x1000/uL (130-400); RED BLOOD CELL COUNT 3.92 mill/uL (4.7-6.1); RED CELL DISTRIBUTION WIDTH 19.8 % (11.6-14.6)
[2022-08-14] MEDS: METOPROLOL TARTRATE 50MG TABLET PO SCH (08:45)
[2022-08-14] MEDS: LEVOTHYROXINE SODIUM 50MCG TABLET PO SCH (08:52)
[2022-08-14] MEDS ORDERED: ASPIRIN 81MG TABLET PO SCH (09:00)
[2022-08-14] MEDS ORDERED: APIXABAN 5 MG TABLET PO SCH (09:00)
[2022-08-14] MEDS ORDERED: CLOPIDOGREL 75MG TABLET PO SCH (09:00)
[2022-08-14] MEDS ORDERED: METOPROLOL TARTRATE 50MG TABLET PO SCH (09:00)
[2022-08-14] MEDS ORDERED: FUROSEMIDE 40MG/4ML VIAL IVP SCH (09:00)
[2022-08-14 09:16] LABS: NUCLEATED RED BLOOD CELLS 14 /100 WBC; PLATELET ESTIMATE NORMAL
[2022-08-14] MEDS ORDERED: NALOXONE HCL 0.4MG/ML VIAL IV PRN (10:15)
[2022-08-14] MEDS ORDERED: SODIUM BICARBONATE 8.4% 1 MEQ/ML 50ML SYR IV NR ×2 (10:30→15:30)
[2022-08-14] MEDS: NOREPINEPHRINE 8 MG in DEXT 5% WATER 242 ML IV PRN ×3 (10:31→14:54)
[2022-08-14 10:36] LABS: BG BASE EXCESS -29.6 mmol/L (-2.0-2.0); BG CARBOXYHEMOGLOBIN 0.3 % (0.5-1.5); BG DEOXYHEMOGLOBIN 0.4 % (0.0-5.0); BG FRACTION INSPIRED OXYGEN 100; BG HCO3 ACT 4.5 mmol/L (22.0-26.0); BG METHEMOGLOBIN 0.7 % (0.0-1.5); BG OXYGEN SATURATION 99.6 % (92.0-98.5); BG OXYHEMOGLOBIN 98.6 % (94.0-97.0); BG PCO2 33.4 mmHg (35.0-45.0); BG PH 6.752 (7.350-7.450); BG PO2 527.6 mmHg (75.0-100.0); BG SAMPLE SITE RIGHT RADIAL; BG TOTAL HEMOGLOBIN 9.9 g/dL (12.0-18.0); BG VENT MODE VENT - AC
[2022-08-14] MEDS ORDERED: SODIUM BICARBONATE 8.4% 1 MEQ/ML 50ML SYR IV ONE (10:38)
[2022-08-14] MEDS ORDERED: IPRATROPIUM/ALBUTEROL 0.5-3(2.5)MG/3ML NEB HHN PRN (11:30)
[2022-08-14] MEDS: SODIUM BICARBONATE 150 MEQ in DEXTROSE 5% WATER 1,000 ML IV SCH (11:41)
[2022-08-14] MEDS ORDERED: PANTOPRAZOLE SODIUM 40 MG/VIAL IV SCH (12:00)
[2022-08-14] MEDS: HYDROCORTISONE SOD SUCCINATE 100 MG/2 ML VIAL IV SCH ×2 (13:14→17:56)
[2022-08-14 13:15] LABS: HEMATOCRIT. 30.1 % (42.0-52.0); HEMOGLOBIN. 8.7 g/dL (14.0-18.0); MEAN CORPUSCULAR HEMOGLOBIN 26.2 pg (28.0-32.0); MEAN CORPUSCULAR VOLUME 90.7 fL (80.0-94.0); MEAN PLATELET VOLUME 7.3 fl (7.4-10.4); PLATELET 109 x1000/uL (130-400); RED BLOOD CELL COUNT 3.32 mill/uL (4.7-6.1); RED CELL DISTRIBUTION WIDTH 19.6 % (11.6-14.6)
[2022-08-14 13:31] LABS: INR 3.4; PROTHROMBIN TIME 33.5 sec (9.6-11.0)
[2022-08-14 13:32] LABS: CREATINE KINASE 992 IU/L (39-308)
[2022-08-14 13:36] LABS: NUCLEATED RED BLOOD CELLS 20 /100 WBC
[2022-08-14 13:37] LABS: PLATELET ESTIMATE DECREASED
[2022-08-14 13:51] LABS: HEPATITIS B SURFACE ANTIGEN NEGATIVE
[2022-08-14] MEDS: IPRATROPIUM/ALBUTEROL 0.5-3(2.5)MG/3ML NEB HHN SCH ×2 (14:02→20:25)
[2022-08-14 14:06] LABS: D-DIMER > 35.20 mg/L FEU (<0.50)
[2022-08-14] MEDS: PIPERACILLIN/TAZOBACTAM 3.375 G in DEXTROSE 5% WATER 50 ML IV SCH ×2 (14:12→23:18)
[2022-08-14] MEDS: PHENYLEPHRINE 100 MG in DEXT 5% WATER 240 ML IV PRN ×3 (14:13→22:33)
[2022-08-14] MEDS ORDERED: DOPAMINE 400MG/250ML PREMIX 250 ML IV ONE (14:43)
[2022-08-14] MEDS: DOPAMINE 400MG/250ML PREMIX 250 ML IV PRN ×3 (14:56→22:11)
[2022-08-14] MEDS ORDERED: ATROPINE SULFATE 1MG/10ML SYR IV PRN (15:00)
[2022-08-14 15:09] LABS: BG BASE EXCESS -25.7 mmol/L (-2.0-2.0); BG CARBOXYHEMOGLOBIN 0.3 % (0.5-1.5); BG FRACTION INSPIRED OXYGEN 100; BG HCO3 ACT 5.6 mmol/L (22.0-26.0); BG METHEMOGLOBIN 0.9 % (0.0-1.5); BG OXYHEMOGLOBIN 97.8 % (94.0-97.0); BG PCO2 29.8 mmHg (35.0-45.0); BG PH 6.893 (7.350-7.450); BG PO2 298.5 mmHg (75.0-100.0); BG SAMPLE SITE RIGHT RADIAL; BG TOTAL HEMOGLOBIN 8.4 g/dL (12.0-18.0); BG VENT MODE VENT - AC
[2022-08-14] MEDS ORDERED: DIGOXIN 125MCG TABLET PO SCH (18:00)
[2022-08-14] MEDS: NOREPINEPHRINE 32 MG in DEXT 5% WATER 218 ML IV PRN ×2 (19:12→23:00)
[2022-08-14] MEDS ORDERED: LORAZEPAM 2MG/ML CPJ IV PRN ×2 (20:00→23:00)
[2022-08-14 20:12] LABS: T4 FREE 1.83 ng/dL (0.76-1.46)
[2022-08-14] MEDS ORDERED: LEVETIRACETAM 500MG/5ML CUP PO SCH (21:00)
[2022-08-14] MEDS ORDERED: LEVETIRACETAM 1000MG PREMIX 100 ML IV SCH (21:00)
[2022-08-14] MEDS ORDERED: FAMOTIDINE 20MG TABLET PO SCH (21:00)
[2022-08-14] MEDS ORDERED: ATORVASTATIN CALCIUM 20MG TABLET PO SCH (21:00)
[2022-08-14] MEDS: VASOPRESSIN 20 UNIT in SODIUM CHLORIDE 0.9% 99 ML IV PRN (22:53)
[2022-08-15] VITALS (26 sets, daily range): BP systolic 31–162; BP diastolic 24–97
[2022-08-15] MEDS: DOPAMINE 400MG/250ML PREMIX 250 ML IV PRN (00:29)
[2022-08-15] MEDS: HYDROCORTISONE SOD SUCCINATE 100 MG/2 ML VIAL IV SCH ×2 (01:21→06:39)
[2022-08-15] MEDS: IPRATROPIUM/ALBUTEROL 0.5-3(2.5)MG/3ML NEB HHN SCH ×2 (01:40→08:36)
[2022-08-15] MEDS: DOPAMINE 800MG PREMIX (DOUBLE) 250 ML IV PRN ×2 (02:10→07:52)
[2022-08-15] MEDS ORDERED: EPINEPHRINE 10 MG in SODIUM CHLORIDE 0.9% 240 ML IV PRN (02:30)
[2022-08-15] MEDS: PHENYLEPHRINE 100 MG in DEXT 5% WATER 240 ML IV PRN ×2 (02:40→05:30)
[2022-08-15] MEDS: NOREPINEPHRINE 32 MG in DEXT 5% WATER 218 ML IV PRN (03:38)
[2022-08-15] MEDS: PIPERACILLIN/TAZOBACTAM 3.375 G in DEXTROSE 5% WATER 50 ML IV SCH ×2 (06:00→07:18)
[2022-08-15] MEDS: NITROGLYCERIN OINT 1GM/INCH UDPKT TD SCH (06:00)
[2022-08-15 06:47] LABS: HEMATOCRIT. 27.9 % (42.0-52.0); HEMOGLOBIN. 7.5 g/dL (14.0-18.0); MEAN CORPUSCULAR HEMOGLOBIN 25.5 pg (28.0-32.0); MEAN CORPUSCULAR VOLUME 95.6 fL (80.0-94.0); MEAN PLATELET VOLUME 7.7 fl (7.4-10.4); PLATELET 79 x1000/uL (130-400); RED BLOOD CELL COUNT 2.92 mill/uL (4.7-6.1); RED CELL DISTRIBUTION WIDTH 18.9 % (11.6-14.6)
[2022-08-15 07:08] LABS: CHLORIDE 89 mEq/L (98-107)
[2022-08-15] MEDS: SODIUM BICARBONATE 150 MEQ in DEXTROSE 5% WATER 1,000 ML IV SCH (07:13)
[2022-08-15 07:36] LABS: PROTHROMBIN TIME 52.4 sec (9.6-11.0)
[2022-08-15 07:38] LABS: INR 5.6
[2022-08-15] MEDS: LEVOTHYROXINE SODIUM 50MCG TABLET PO SCH (07:50)
[2022-08-15] MEDS: VASOPRESSIN 20 UNIT in SODIUM CHLORIDE 0.9% 99 ML IV PRN (07:56)
[2022-08-15 08:27] LABS: NUCLEATED RED BLOOD CELLS 28 /100 WBC; PLATELET ESTIMATE DECREASED
[2022-08-15 09:30] LABS: DIGOXIN < 0.1 ng/mL (0.9-2.0)
== END 2022-08-15 08:45 | DRG 133 ==
LOC: ER 12:15 → MICUSO 21:55 → EDBEDREQSVC 08-14 00:28 → CVICU 08-14 03:15
PROVIDERS: ADMIT Internal Medicine; ATTEND Internal Medicine
PROC: 5A1935Z Respiratory Ventilation, Less than 24 Consecutive Hours (ICD-10-PCS; principal; 2022-08-14)
PROC: 5A12012 Performance of Cardiac Output, Single, Manual (ICD-10-PCS; 2022-08-14)
PROC: 0BH17EZ Insertion of Endotracheal Airway into Trachea, Via Natural or Artificial Opening (ICD-10-PCS; 2022-08-14)
PROC: 02HV33Z Insertion of Infusion Device into Superior Vena Cava, Percutaneous Approach (ICD-10-PCS; 2022-08-14)
PROC: B548ZZA Ultrasonography of Superior Vena Cava, Guidance (ICD-10-PCS; 2022-08-14)
DX: J96.21 Acute and chronic respiratory failure with hypoxia (principal); N17.0 Acute kidney failure with tubular necrosis; I46.9 Cardiac arrest, cause unspecified; G93.41 Metabolic encephalopathy; I50.23 Acute on chronic systolic (congestive) heart failure; E44.1 Mild protein-calorie malnutrition; I95.9 Hypotension, unspecified; I82.432 Acute embolism and thrombosis of left popliteal vein; E11.52 Type 2 diabetes mellitus with diabetic peripheral angiopathy with gangrene; E87.20 Acidosis, unspecified; I48.91 Unspecified atrial fibrillation; I13.0 Hypertensive heart and chronic kidney disease with heart failure and stage 1 through stage 4 chronic kidney disease, or unspecified chronic kidney disease; G93.1 Anoxic brain damage, not elsewhere classified; J44.9 Chronic obstructive pulmonary disease, unspecified; N18.9 Chronic kidney disease, unspecified; E66.01 Morbid (severe) obesity due to excess calories; E78.5 Hyperlipidemia, unspecified; D64.9 Anemia, unspecified; Z66 Do not resuscitate; I42.9 Cardiomyopathy, unspecified; E03.9 Hypothyroidism, unspecified; R74.01 Elevation of levels of liver transaminase levels; E11.22 Type 2 diabetes mellitus with diabetic chronic kidney disease; Z83.3 Family history of diabetes mellitus; Z82.49 Family history of ischemic heart disease and other diseases of the circulatory system; Z91.199 Patient's noncompliance with other medical treatment and regimen due to unspecified reason; Z95.5 Presence of coronary angioplasty implant and graft; Z99.81 Dependence on supplemental oxygen; Z68.44 Body mass index [BMI] 60.0-69.9, adult; Z79.899 Other long term (current) drug therapy; Z91.018 Allergy to other foods
CPT/HCPCS: 31500; 36415; 36556; 36600; 71045; 76937; 80048; 80053; 80061; 80162; 82150; 82330; 82375; 82533; 82550; 82805; 82962; 83605; 83880; 84145; 84439; 84443; 84481; 84484; 85025; 85379; 86705; 86709; 86803; 87070; 87077; 87186; 87340; 90935; 92950; 93005; 93306; 93970; 94002; 94003; 94640; 99285; A6261; C1752; C1760; C9113; J0282; J1265; J1720; J1940; J1953; J2060; J2370; J2543; J3490; J7050; J7060; J7070